=== PATIENT | female | born 1975 | race Caucasian/White ===

== ENCOUNTER 2022-12-05 16:47 | Outpatient (OUT) | payer OTHER, SELFPAY ==
[2022-12-05 17:10] LABS: Basophils Absolute Auto 0.1 10^3/uL (0.0-0.1); Basophils Percent Auto 0.8 % (0.2-2.0); Eosinophils Absolute Auto 0.1 10^3/uL (0.0-0.7); Eosinophils Percent Auto 1.4 % (0.9-7.0); Hematocrit 43.9 % (36.0-48.0); Hemoglobin 14.5 g/dL (12.0-16.0); Immature Granulocytes Abs Auto 0.03 10^3/uL (0.00-0.03); Immature Granulocytes Pct Auto 0.3 % (0.0-0.5); Lymphocytes Absolute Auto 1.9 10^3/uL (1.2-3.8); Lymphocytes Percent Auto 22.3 % (20.5-60.0); Mean Corpuscular Hemoglobin 30.5 pg (26.7-34.0); Mean Corpuscular Volume 92.4 fL (81.0-99.0); Mean Platelet Volume 9.3 fL (9.5-13.5); Monocytes Absolute Auto 0.5 10^3/uL (0.3-0.8); Monocytes Percent Auto 5.5 % (1.7-12.0); Neutrophils Percent Auto 69.7 % (43.0-75.0); Platelet Count 267 10^3/uL (150-450); Red Blood Count 4.75 10^6/uL (4.20-5.40); Red Cell Distribution Width 14.2 % (11.0-15.0); White Blood Count 8.7 10^3/uL (4.0-11.0)
[2022-12-05 17:16] LABS: Estimated Average Glucose 123 mg/dL; Glycohemoglobin A1C 5.9 % (4.5-6.2)
[2022-12-05 18:24] LABS: Alanine Aminotransferase 64 U/L (14-59); Albumin Globulin Ratio 0.9; Albumin Level 3.6 g/dL (3.4-5.0); Alkaline Phosphatase 105 U/L (46-116); Anion Gap 12.7; Aspartate Amino Transferase 36 U/L (15-37); Bilirubin Total 0.3 mg/dL (0.2-1.0); Calcium 8.4 mg/dL (8.5-10.1); Carbon Dioxide 27.5 mmol/L (21.0-32.0); Chloride 105 mmol/L (98-107); Chol HDL Ratio 4.2; Cholesterol 171 mg/dL (<=200); Estimated GFR (African America >60 (>=60); Estimated GFR (Non-African Ame >60 (>=60); Free T3 2.89 pg/mL (2.18-3.98); Globulin 4.2 g/dL; Glucose 97 mg/dL (74-106); HDL Cholesterol 41 mg/dL (40-60); Potassium 4.2 mmol/L (3.5-5.1); Sodium 141 mmol/L (136-145); Thyroid Stimulating Hormone 0.866 uIU/mL (0.358-3.740); Total Protein 7.8 g/dL (6.4-8.2); Triglycerides 145 mg/dL (<=150)
[2022-12-07 12:08] LABS: Insulin 20.6 uIU/mL (2.6-24.9)
== END 2022-12-05 16:48 | disposition home or self-care (01) ==
PROVIDERS: PCP Family Medicine; Visit Provider Family Medicine
DX: Z00.00 Encounter for general adult medical examination without abnormal findings (principal)
CPT/HCPCS: 36415; 80053; 80061; 83036; 83525; 83540; 84436; 84443; 84481; 85025

== ENCOUNTER 2023-12-08 15:21 | Outpatient (OUT) | payer OTHER, SELFPAY ==
[2023-12-08 16:03] LABS: Estimated Average Glucose 120 mg/dL; Glycohemoglobin A1C 5.8 % (4.5-6.2)
[2023-12-08 16:20] LABS: Basophils Absolute Auto 0.1 10^3/uL (0.0-0.1); Basophils Percent Auto 0.7 % (0.2-2.0); Eosinophils Absolute Auto 0.1 10^3/uL (0.0-0.7); Eosinophils Percent Auto 1.2 % (0.9-7.0); Hemoglobin 14.7 g/dL (12.0-16.0); Immature Granulocytes Abs Auto 0.01 10^3/uL (0.00-0.03); Immature Granulocytes Pct Auto 0.1 % (0.0-0.5); Lymphocytes Percent Auto 22.4 % (20.5-60.0); Mean Corpuscular HGB Conc 32.7 g/dL (29.9-35.2); Mean Corpuscular Hemoglobin 31.3 pg (26.7-34.0); Mean Corpuscular Volume 95.9 fL (81.0-99.0); Mean Platelet Volume 10.1 fL (9.5-13.5); Monocytes Absolute Auto 0.5 10^3/uL (0.3-0.8); Monocytes Percent Auto 5.7 % (1.7-12.0); Neutrophils Absolute Auto 6.2 10^3/uL (1.4-6.5); Neutrophils Percent Auto 69.9 % (43.0-75.0); Platelet Count 244 10^3/uL (150-450); Red Blood Count 4.69 10^6/uL (4.20-5.40); Red Cell Distribution Width 13.8 % (11.0-15.0); White Blood Count 8.8 10^3/uL (4.0-11.0)
[2023-12-08 16:45] LABS: Free T4 1.06 ng/dL (0.76-1.46)
[2023-12-08 17:27] LABS: Anion Gap 10.5; BUN Creatinine Ratio 15.7; Carbon Dioxide 27.6 mmol/L (21.0-32.0); Chloride 104 mmol/L (98-107); Estimated GFR (African America >60 (>=60); Estimated GFR (Non-African Ame >60 (>=60); Glucose 97 mg/dL (74-106); Potassium 4.1 mmol/L (3.5-5.1); Sodium 138 mmol/L (136-145)
[2023-12-08 17:28] LABS: Alanine Aminotransferase 41 U/L (14-59); Alkaline Phosphatase 106 U/L (46-116); Aspartate Amino Transferase 23 U/L (15-37); Bilirubin Total 0.4 mg/dL (0.2-1.0); Calcium 8.5 mg/dL (8.5-10.1); Total Protein 7.8 g/dL (6.4-8.2)
[2023-12-08 17:29] LABS: Albumin Globulin Ratio 0.9; Albumin Level 3.6 g/dL (3.4-5.0); Cholesterol 175 mg/dL (<=200); Globulin 4.2 g/dL; HDL Cholesterol 51 mg/dL (40-60); Triglycerides 83 mg/dL (<=150); VLDL CHOLESTEROL 16.6 mg/dL
[2023-12-08 17:30] LABS: Chol HDL Ratio 3.4; Thyroid Stimulating Hormone 1.118 uIU/mL (0.358-3.740)
[2023-12-08 17:33] LABS: LDL Cholesterol Calculated 107.4 mg/dL
== END 2023-12-08 15:22 | disposition home or self-care (01) ==
PROVIDERS: PCP Family Medicine; Visit Provider Family Medicine
DX: Z00.00 Encounter for general adult medical examination without abnormal findings (principal); R00.2 Palpitations
CPT/HCPCS: 36415; 80053; 80061; 83036; 84439; 84443; 85025; 93246

== ENCOUNTER 2024-01-01 13:06 | Emergency (ER) | payer OTHER, SELFPAY ==
[2024-01-01] VITALS (19 sets, daily range): BP systolic 128–159; BP diastolic 78–103; PULSE 60–78; TEMP 36.9; O2SAT 96–100; BMI 40.4
--- NOTE | 2024-01-01 13:28 | ECG_ITS ---
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
--- NOTE | 2024-01-01 13:29 | ED.GENADUL1 ---
HPI HPI - General Adult General Chief complaint: Arrhythmia/Palpitations Stated complaint: CHEST PAIN Time Seen by Provider: 01/01/24 13:07 Source: patient Mode of arrival: walk-in Limitations: no limitations History of Present Illness HPI narrative: Patient is a 48-year-old female with a history of GERD who presents to the emergency department for palpitations. Patient states she works midnights, she noticed last night that she had discomfort in her chest, she is adamant this was not chest pain but she felt as though her heart was beating harder than it should, she denies any strenuous activity. She states she does have a history of episodes of tachycardia and recently completed a Holter monitor. This was ordered by her primary care provider and she is due to follow-up with cardiology for an echo and stress test. She states that this morning after having the palpitations all night, her watch told her that she was in A-fib and she presents to the ER for evaluation. She is in normal sinus rhythm on arrival to the ER. She denies any other focal medical complaints at this time. Related Data Home Medications ?Medication ?Instructions ?Recorded ?Confirmed pantoprazole 40 mg granules 40 mg PO DAILY 01/01/24 01/01/24 delayed-release for susp in packet (Protonix) Allergies Allergy/AdvReac Type Severity Reaction Status Date / Time No Known Drug Allergies Allergy Verified 01/01/24 13:21 Opioid HPI Opioid Management Most Recent Opioid Data: No Data to Display Review of Systems ROS Constitutional Denies: fever or chills Ears, nose, mouth, and throat Denies: throat pain or nasal congestion Cardiovascular Reports: palpitations; Denies: chest pain Respiratory Denies: shortness of breath or cough Gastrointestinal Denies: nausea or vomiting Integumentary/Breast Denies: rash Hematologic/Lymphatic Denies: easy bruising or easy bleeding Exam Narrative Exam Narrative: Gen.: Awake, alert, in no distress Head: Normocephalic, atraumatic ENT: Moist mucous membranes Respiratory: No respiratory distress, lungs clear bilaterally Cardio: Regular rate and rhythm Extremities: Moves extremities equally Psych: Normal mood and affect Neuro: No focal neuro deficit Skin: Warm, dry, intact Constitutional Vital Signs, click to edit/add: Last Vital Signs Temp 98.4 F 01/01/24 13:14 Pulse 76 01/01/24 13:14 Resp 18 01/01/24 13:14 BP 159/99 H 01/01/24 13:14 Pulse Ox 100 01/01/24 13:14 O2 Del Method Room Air 01/01/24 13:14 Course Vital Signs Vital signs: Vital Signs Temperature 98.4 F 01/01/24 13:14 Pulse Rate 76 01/01/24 13:14 Respiratory Rate 18 01/01/24 13:14 Blood Pressure 159/99 H 01/01/24 13:14 Pulse Oximetry 100 01/01/24 13:14 Oxygen Delivery Method Room Air 01/01/24 13:14 Temperature 98.4 F 01/01/24 13:14 Pulse Rate 76 01/01/24 13:14 Respiratory Rate 18 01/01/24 13:14 Blood Pressure 159/99 H 01/01/24 13:14 Pulse Oximetry 100 01/01/24 13:14 Oxygen Delivery Method Room Air 01/01/24 13:14 Medical Decision Making MDM Narrative Medical decision making narrative: No chest pain, labs including D-dimer are within normal limits and chest x-ray is unremarkable. Patient in normal sinus rhythm with stable vital signs in the emergency department. She is discharged home to follow-up with PCP and cardiology as scheduled. Reevaluated by attending physician prior to discharge. Return to the ER if symptoms change or worsen SHARED APC VISIT, PHYSICIAN ATTESTATION: [id number] I performed a substantive part of the MDM during the patient?s E/M visit. I personally evaluated and examined the patient. I personally made or approved the documented management plan and acknowledge its risk of complications. Medical Records Medical records reviewed: Yes I reviewed the patient's medical records Lab Data Lab results reviewed: Yes I reviewed the patient's lab results Labs: Lab Results 01/01/24 Range/Units 14:00 WBC 8.7 (4.0-11.0) 10^3/uL RBC 4.87 (4.20-5.40) 10^6/uL Hgb 15.3 (12.0-16.0) g/dL Hct 45.9 (36.0-48.0) % MCV 94.3 (81.0-99.0) fL MCH 31.4 (26.7-34.0) pg MCHC 33.3 (29.9-35.2) g/dL RDW 13.6 (11.0-15.0) % Plt Count 239 (150-450) 10^3/uL MPV 9.4 L (9.5-13.5) fL Neut % (Auto) 75.5 H (43.0-75.0) % Lymph % (Auto) 17.2 L (20.5-60.0) % [place] % (Auto) 5.3 (1.7-12.0) % Eos % (Auto) 1.1 (0.9-7.0) % Baso % (Auto) 0.7 (0.2-2.0) % Neut # (Auto) 6.6 H (1.4-6.5) 10^3/uL Lymph # (Auto) 1.5 (1.2-3.8) 10^3/uL [place] # (Auto) 0.5 (0.3-0.8) 10^3/uL Eos # (Auto) 0.1 (0.0-0.7) 10^3/uL Baso # (Auto) 0.1 (0.0-0.1) 10^3/uL Abs Immat Gran (auto) 0.02 (0.00-0.03) 10^3/uL Imm/Tot Granulo (auto) 0.2 (0.0-0.5) % PT 10.6 (9.0-11.6) sec INR 1.00 D-Dimer 0.32 (<=0.59) mg/L FEU Sodium 140 (136-145) mmol/L Potassium 4.0 (3.5-5.1) mmol/L Chloride 104 (98-107) mmol/L Carbon Dioxide 26.1 (21.0-32.0) mmol/L Anion Gap 13.9 BUN 13.0 (7.0-18.0) mg/dL Creatinine 0.84 (0.55-1.02) mg/dL Est GFR ( Amer) >60 (>=60) Est GFR (Non-Af Amer) >60 (>=60) BUN/Creatinine Ratio 15.5 Glucose 97 (74-106) mg/dL Lactate 1.5 (0.4-2.0) mmol/L Calcium 8.7 (8.5-10.1) mg/dL Total Bilirubin 0.5 (0.2-1.0) mg/dL AST 21 (15-37) U/L ALT 34 (14-59) U/L Alkaline Phosphatase 104 (46-116) U/L Troponin I High Sens <4.0 L (4.0-51.3) pg/mL NT-Pro-B Natriuret Pep 63.0 (<=450.0) pg/mL Total Protein 7.3 (6.4-8.2) g/dL Albumin 3.4 (3.4-5.0) g/dL Globulin 3.9 g/dL Albumin/Globulin Ratio 0.9 TSH 1.129 (0.358-3.740) uIU/mL Imaging Data Chest x-ray: Attestation: I have reviewed the pertinent imaging results. ECG Data Attestation: I personally reviewed and interpreted this ECG as follows: (Normal sinus rhythm at a rate of 68, no acute ST elevation or ectopy. EKG reviewed by attending physician) Discharge Plan Discharge Stand Alone Forms: Portal Instructions Chief Complaint: Arrhythmia/Palpitations Clinical Impression: Palpitations Patient Disposition: Home, Self-Care Time of Disposition Decision: 15:14 Condition: Good Prescriptions / Home Meds: No Action pantoprazole [Protonix] [address] for susp in packet 40 mg PO DAILY Print Language: Norwegian Instructions: Heart Palpitations (ED) Referrals: Davion Tavera MD [Primary Care Provider] - 1 week
[2024-01-01 14:05] LABS: Basophils Absolute Auto 0.1 10^3/uL (0.0-0.1); Basophils Percent Auto 0.7 % (0.2-2.0); Eosinophils Absolute Auto 0.1 10^3/uL (0.0-0.7); Eosinophils Percent Auto 1.1 % (0.9-7.0); Hematocrit 45.9 % (36.0-48.0); Hemoglobin 15.3 g/dL (12.0-16.0); Immature Granulocytes Abs Auto 0.02 10^3/uL (0.00-0.03); Immature Granulocytes Pct Auto 0.2 % (0.0-0.5); Lymphocytes Absolute Auto 1.5 10^3/uL (1.2-3.8); Lymphocytes Percent Auto 17.2 % (20.5-60.0); Mean Corpuscular HGB Conc 33.3 g/dL (29.9-35.2); Mean Corpuscular Hemoglobin 31.4 pg (26.7-34.0); Mean Corpuscular Volume 94.3 fL (81.0-99.0); Mean Platelet Volume 9.4 fL (9.5-13.5); Monocytes Absolute Auto 0.5 10^3/uL (0.3-0.8); Monocytes Percent Auto 5.3 % (1.7-12.0); Neutrophils Absolute Auto 6.6 10^3/uL (1.4-6.5); Neutrophils Percent Auto 75.5 % (43.0-75.0); Platelet Count 239 10^3/uL (150-450); Red Blood Count 4.87 10^6/uL (4.20-5.40); Red Cell Distribution Width 13.6 % (11.0-15.0); White Blood Count 8.7 10^3/uL (4.0-11.0)
[2024-01-01 14:20] LABS: D Dimer 0.32 mg/L FEU (<=0.59); Prothrombin Time 10.6 sec (9.0-11.6)
[2024-01-01 14:23] LABS: Lactate/Lactic Acid 1.5 mmol/L (0.4-2.0)
--- NOTE | 2024-01-01 14:23 | XR_ITS ---
The [address] [address] Patient Name: ADRIA LE MRN: [id number] date: 1975 Sex: F Assigned Patient Location: ER Current Patient Location: ED.MAIN Accession/Order Number: [id number] Exam Date: 01/01/2024 14:35 Report Date: 01/01/2024 15:45 At the request of: YAIR LARKIN Procedure: XR chest 1V EXAMINATION: XR chest 1V HISTORY: Palpitations COMPARISON: No relevant comparison available. TECHNIQUE: ap port FINDINGS: LUNGS: No significant pulmonary parenchymal abnormalities. VASCULATURE: No increased pulmonary vasculature. PLEURA: No pneumothorax, effusion, or pleural thickening. CARDIAC: No cardiomegaly or cardiac silhouette abnormality. MEDIASTINUM: No visible mass or adenopathy. BONES: No fracture or visible bone lesion. OTHER: Negative. XR/XR chest 1V IMPRESSION: No acute cardiopulmonary disease Electronically authenticated by: TODD MCCURDY Date: 01/01/2024 15:45
[2024-01-01 14:30] LABS: Alanine Aminotransferase 34 U/L (14-59); Albumin Globulin Ratio 0.9; Albumin Level 3.4 g/dL (3.4-5.0); Alkaline Phosphatase 104 U/L (46-116); Anion Gap 13.9; Aspartate Amino Transferase 21 U/L (15-37); BUN Creatinine Ratio 15.5; Bilirubin Total 0.5 mg/dL (0.2-1.0); Calcium 8.7 mg/dL (8.5-10.1); Carbon Dioxide 26.1 mmol/L (21.0-32.0); Chloride 104 mmol/L (98-107); Estimated GFR (African America >60 (>=60); Estimated GFR (Non-African Ame >60 (>=60); Globulin 3.9 g/dL; Glucose 97 mg/dL (74-106); Sodium 140 mmol/L (136-145); Thyroid Stimulating Hormone 1.129 uIU/mL (0.358-3.740); Total Protein 7.3 g/dL (6.4-8.2); Troponin I High Sensitivity <4.0 pg/mL (4.0-51.3)
== END 2024-01-01 15:55 | disposition home or self-care (01) ==
PROVIDERS: Physician Assistant; Emergency Provider Emergency Medicine; PCP Family Medicine
DX: R00.2 Palpitations (principal); K21.9 Gastro-esophageal reflux disease without esophagitis
CPT/HCPCS: 36415; 71045; 80053; 83605; 83880; 84443; 84484; 85025; 85378; 85610; 93005; 99285

== ENCOUNTER 2024-01-31 08:58 | Outpatient (OUT) | payer OTHER, SELFPAY ==
--- NOTE | 2024-01-31 08:20 | NM_ITS ---
Patient Name: ADRIA LE MR#: [id number] : 1975 Exam Date: 01/31/2024 Ordering Doctor: DR Davion Tavera . RADIOLOGY REPORT PROCEDURE: NM PACHECO PERF SPECT REST STR COMPARISON: None. INDICATIONS: ABNORMAL HOLTER MONITOR TECHNIQUE: Exam Description: Stress/Rest one day protocol gated SPECT Rest Imagin.8 mCi Tc-99m Cardiolite IV on 01/31/2024 Stress Imaging 29.8 mCi Tc-99m Cardiolite IV on 01/31/2024 Exercise Protocol: Reilly Heart Rate (bpm): Rest: 55 Max: 184 PMHR: 106 Blood Pressure: Rest: 118/72 Max: 168/86 Exercise Time: Minutes: 7 Seconds: 00 Stage Reached: Stage: 3 Mets 10.0 Symptoms: Rest and peak stress ECG findings were pending and the exercise portion of the study was pending per attending physician Dr. Choudhury . For more details please see separate cardiac stress test report. FINDINGS: QUALITY OF STUDY: Good. PERFUSION DEFECT: None. LOCATION: N/A SIZE: N/A. SEVERITY: N/A. TYPE: N/A. WALL MOTION: Normal. LV SIZE: Normal. 63 mL. TID / TCD: None; 0.9 LVEF: Normal. Calculated EF 73%. SUMMARY: Myocardial perfusion imaging study is NORMAL. CONCLUSION: 1. No reversible ischemia 2. Pending exercise test result Dictated by: Elvis Washington MD on 01/31/2024 at 15:46 Approved by: Elvis Washington MD on 01/31/2024 at 15:47
--- NOTE | 2024-01-31 09:00 | CA_ITS ---
Patient Name: ADRIA LE MR#: [id number] : 1975 Exam Date: 01/31/2024 Ordering Doctor: DR Davion Tavera . ECHOCARDIOGRAM REPORT PROCEDURE: CA ECHO DOPPLER COMPLETE INDICATIONS: Abnormal Holter monitor finding COMPARISON: None. DESCRIPTION: COMPLETE ECHOCARDIOGRAM Real-time transthoracic echocardiography with 2D, M-mode, spectral and color flow Doppler performed. QUALITY: Technical quality was good. LEFT VENTRICLE: Normal chamber size. Normal left ventricular wall thickness. LV EF: Global left ventricular systolic function is normal; visually estimated ejection fraction is 55 to 60%. No significant wall motion abnormalities. DIASTOLIC: Normal diastolic function. ATRIAL SEPTUM: Visually appears intact. LEFT ATRIUM: Normal chamber size. RIGHT ATRIUM: Normal chamber size. RIGHT VENTRICLE: Normal chamber size. Normal right ventricular systolic function. TRICUSPID VALVE: Normal mobility and thickness. Trivial regurgitation. No evidence of pulmonary hypertension. RVSP 33 mmHg MITRAL VALVE: Normal mobility and thickness. No evidence of mitral valve stenosis. There is no mitral annular calcification. Mild mitral regurgitation. AORTIC VALVE: Normal trileaflet appearance. No visible sclerosis. Normal leaflet mobility. No evidence of aortic valve stenosis. No aortic regurgitation. AORTIC ROOT: Normal diameter and appearance. PULMONIC VALVE: Normal thickness and mobility. No stenosis. No regurgitation. PERICARDIUM: No evidence of pericardial effusion. IVC: Collapses with inspirations. IVC is normal in size. CONCLUSION: 1. Global left ventricular systolic function is normal; visually estimated ejection fraction is 55 to 60% 2. Normal right ventricular size and systolic function 3. The left atrium is normal in size 4. Normal diastolic function 5. Mild mitral regurgitation Adult Echocardiography Procedure Report Left Ventricle LVEDD (3.7 - 5.6 cm): 4.38 cm LVESD (2.2 - 4.0 cm): 2.79 cm LVIVS thickness (0.6 - 1.2 cm): 0.75 cm LVPW thickness (0.5 - 1.0 cm): 0.94 cm e': 0.17 m/s E - e': 5.25 LVOT Max Gradient: 5.60 mm[Hg] LVOT Area (cm2): 1.18 m/s Peak Velocity (LVOT): 1.18 m/s Mean Velocity (LVOT): 0.76 m/s LVOT Diameter 1.96 cm Left Atrium LA Volume Index (2D A2C): 20.94 ml/m2 Left Atrium Systolic Dimension: 3.46 cm Mitral Valve MV E to A Ratio: 1.32 Mitral Valve A-Wave Peak Velocity: 0.69 m/s Mitral Valve E-Wave Peak Velocity: 0.91 m/s Right Ventricle Aorta AO Root Diam: 2.53 cm Aortic Valve AoV Area (Peak Ricki): 2.82 cm2, 2.82 cm2 AoV Area (VTI): 2.47 cm2, 2.47 cm2 Peak Velocity(Antegrade Flow): 1.26 m/s Peak Gradient(Antegrade Flow): 6.37 mm[Hg] Mean Velocity(Antegrade Flow): 0.84 m/s Mean Gradient(Antegrade Flow): 3.24 mm[Hg] Velocity Time Integral: 29.88 cm Tricuspid Valve Peak Velocity (Regurgitant Flow): 2.70 m/s, 2.74 m/s Pulmonic Valve Mean Gradient: 4.79 mm[Hg] Mean Velocity: 1.01 m/s Peak Velocity: 1.53 m/s, 1.46 m/s Peak Gradient: 9.35 mm[Hg], 8.52 mm[Hg] Right Atrium Right Atrium Systolic Pressure: 37.09 ml, 37.09 ml Dictated by: Kem Bolden M.D. on 02/01/2024 at 15:16 Approved by: Kem Bolden M.D. on 02/01/2024 at 15:19
--- NOTE | 2024-01-31 10:59 | PC.NURSE ---
Nursing Note Cardiac Stress Test Reviewed: Medication, allergies and patient history reviewed. Stress Test: [ x] Patient tolerated stress test well. [ ] Patient unable to tolerate walking on treadmill. Switched to Lexiscan stress test. [x ] No chest pain noted per patient [ ] Chest pain that resolved prior to leaving stress lab. [ ] No dyspnea noted. [x ] Dyspnea that resolved prior to leaving stress lab. [ x] Patient left stress lab asymptomatic and hemodynamically stable. [ ] Patient taken to the Emergency Room due to non-resolving symptoms following stress test. [ x] Patient achieved target heart rate. [ ] Patient unable to achieve target heart rate. [ ] Aminophylline administered as reversal agent to Lexiscan (Regadenoson). [ ] Nitro administered. Nursing Comments:Pt had cardiolite stress test done and tolerated well. No chest pain noted. Pt did have some dyspnea which she states is normal with exercise for her. Pt states she has had runs of VT in the past and wore a holter and did not even know she was having these events while they were happening. Pt left stress lab to go eat in cafeteria with no issues noted.
--- NOTE | 2024-01-31 12:32 | P.STRESS_ITS ---
Stress Test Stress Test Allergies Allergy/AdvReac Type Severity Reaction Status Date / Time No Known Drug Allergies Allergy Verified 01/01/24 13:21 Requesting physician: Davion Tavera Procedure: Exercise Cardiolite stress test General Information: Reason for Stress Test: Tachycardia, abnormal Holter monitor findings Cardiac History and Risk Factors: None Resting 12 - Lead Electrocardiogram: Rate & rhythm: Sinus bradycardia with sinus arrhrythmia at a rate of 54. [place]: Normal T-waves: Flattened in aVL ST-segments: Normal Stress Test: Protocol: Reilly protocol was followed, with injection of Cardiolite once target heart rate was achieved. Exercise capacity: Good exercise capacity. Total exercise time of 7 minutes reached Reilly stage 3 at 3.4MPH, 14% grade, & 10 METs. Blood pressure: Initial: 118/72, Maximum: 168/86 Rate & rhythm: Patient remained in sinus rhythm during the exercise and recovery portions of the study.? The maximum heart rate was 184, which was 106% of the maximum predicted heart rate. PVS were noted. ST-segments & T-waves: No significant changes when compared to the baseline EKG. Patient response/symptoms: No reproducible symptoms to chief complaint. She voiced mild dyspnea. Interpretation: Normal exercise stress test without electrocardiographical evidence of ischemia. Asymptomatic of chief complaint. Cardiolite imaging interpretation will be reported separately. Clinical correlation required.?
== END 2024-01-31 08:59 | disposition home or self-care (01) ==
LOC: NM 08:58
PROVIDERS: PCP Family Medicine; Visit Provider Family Medicine
DX: R94.31 Abnormal electrocardiogram [ECG] [EKG] (principal)
CPT/HCPCS: 78452; 93017; 93306; A9500

== ENCOUNTER 2024-02-05 15:11 | Outpatient (OUT) | payer OTHER, SELFPAY | END 2024-02-05 15:12 | disposition home or self-care (01) | LOC: CARD 15:11 | PROVIDERS: PCP Family Medicine; Visit Provider Family Medicine | DX: R00.2 Palpitations (principal) | CPT/HCPCS: 93270 ==

== ENCOUNTER 2024-04-24 14:48 | Outpatient (OUT) | payer OTHER, SELFPAY ==
--- NOTE | 2024-04-24 14:52 | US_ITS ---
The [address] [address] Patient Name: ADRIA LE MRN: [id number] date: 1975 Sex: F Assigned Patient Location: US Current Patient Location: Accession/Order Number: [id number] Exam Date: 04/24/2024 14:53 Report Date: 04/25/2024 07:36 At the request of: JOEY ZAPIEN Procedure: US soft tissue head and neck EXAM: US soft tissue head and neck HISTORY: Throat Pain COMPARISON: None. TECHNIQUE: Grayscale and color ultrasound FINDINGS: Multiple normal size bilateral cervical lymph nodes some of which demonstrate atypical morphology with thickened cortices and loss of hyper echogenic hilum The largest in the right neck measures 2.0 x 1.3 x 0.6 cm. The largest in the left neck measures 2.1 x 1.0 x 0.7 cm. US/US soft tissue head and neck IMPRESSION: Bilateral cervical lymphadenopathy, normal in size but atypical morphology possibly reactive Electronically authenticated by: TODD MCCURDY Date: 04/25/2024 07:36
== END 2024-04-24 14:49 | disposition home or self-care (01) ==
LOC: US 14:48
PROVIDERS: PCP Family Medicine; Visit Provider Family Medicine
DX: R07.0 Pain in throat (principal); R59.1 Generalized enlarged lymph nodes
CPT/HCPCS: 76536

== ENCOUNTER 2024-05-09 13:24 | Outpatient (OUT) | payer OTHER, SELFPAY ==
--- NOTE | 2024-05-09 13:28 | CT_ITS ---
The [address] [address] Patient Name: ADRIA LE MRN: [id number] date: 1975 Sex: F Assigned Patient Location: CT Current Patient Location: Accession/Order Number: [id number] Exam Date: 05/09/2024 13:45 Report Date: 05/10/2024 11:17 At the request of: JOEY ZAPIEN Procedure: CT soft tissue neck w con CT NECK WITH CONTRAST. 05/09/2024 1:45 PM EST Clinical History:Throat Pain Comparison: Neck ultrasound 04/24/2024 . Contrast-enhanced helically acquired data per standard protocol. INTRACRANIAL COMPARTMENT: Included aspects are grossly unremarkable at helical acquisition ORBITS: Included aspects are grossly unremarkable PARANASAL SINUSES: Included aspects are clear MASTOIDS: Clear MUCOSAL SPACES: No prominence of posterior nasopharyngeal tissue. The lateral oropharyngeal tonsillar pillars are mildly prominent and are mildly hyperdense. They measure 2.5-3.0 cm and are mildly convex at their margins. No tonsillar or peritonsillar collection. Calcification of the right is likely chronic. The lingual tonsils are lobular mildly prominent. Some effacement of the valleculae. PARAPHARYNGEAL FAT: Unremarkable PREEPIGLOTTIC FAT: Preserved PARALARYNGEAL FAT: Symmetric SUBMENTAL REGION: No adenopathy SUBMANDIBULAR REGIONS: Slightly elongated lobular but otherwise thin nodes bilaterally. RIGHT CERVICAL LYMPH NODES: 13 mm JGD node. At the hyoid level there is a 9 mm IJ node. No infrahyoid IJ adenopathy. Several nonenlarged PC nodes. No TC adenopathy LEFT CERVICAL LYMPH NODES: 15 mm JGD node with preserved fatty hilum. No infrahyoid IJ adenopathy. Several nonenlarged PC and TC nodes. THYROID: Enlarged, particularly the left lobe. Heterogeneity both lobes, left greater than right. TRACHEOESOPHAGEAL GROOVES: Both thyroid lobes extend into these regions, left more so than right. PAROTID GLANDS: No acute finding SUBMANDIBULAR GLANDS: No acute finding SUBLINGUAL SPACES: No acute finding OTHER SOFT TISSUES: No retropharyngeal fluid collection or soft tissue mass. VASCULATURE: IJVs are patent with the left moderately dominant over the right. Carotid bifurcations are widely patent. Vertebral arteries are patent with the right dominant over the left OSSEOUS STRUCTURES: No acute finding. LUNG APICES: Clear. CT/CT soft tissue neck w con IMPRESSION: 1. Symmetric mildly prominent lateral oropharyngeal tonsillar pillars greater than lingual tonsils. Given the symmetry this is likely lymphoid. Clinical correlation regarding etiology is needed. 2. Nonnecrotic cervical chain nodes bilaterally. 3. Thyroid as described. Taken together this is probably goitrogenic. Taken individually etiology of any one area of heterogeneity is unknown. If desired, follow-up thyroid ultrasound to be compared to 08/23/[address] scans at this facility use dose modulation, iterative reconstruction, and/or weight based dosing when appropriate to reduce radiation dose to as low as reasonably achievable. Electronically authenticated by: TAN MCCORMACK Date: 05/10/2024 11:17
--- OUTSIDE RECORDS SUMMARY | 2024-05-09 13:29 | XMS_ITS | CCD ---
Author Organization [facility] Care Team Providers Care Social Science Manager Name Role Phone DR XIMENA LEONE Attending Unavailable HOY, DR COOK Primary Care Unavailable KARASIK, DR BUENO Admitting Unavailable KARASIK, DR BUENO Consulting Unavailable EDUARDO, PETERSON Consulting Unavailable DORKOSKIEDEEPTHI Consulting Unavailable KARASIK, DR BUENO Attending Unavailable HOY, DR COOK Referring Unavailable HOY, DR COOK Primary Care Unavailable KARASIK, DR BUENO Admitting Unavailable KARASIK, DR BUENO Attending Unavailable HOY, DR COOK Primary Care Unavailable KARASIK, DR BUENO Consulting Unavailable KARASIK, DR BUENO Admitting Unavailable HOY, DR COOK Admitting Unavailable HOY, DR COOK Attending Unavailable HOY, DR COOK Consulting Unavailable GUILLERMOY, DR COOK Primary Care Unavailable ZIEBER, DR WERO Freed Consulting Unavailable CURRY, DR COOK Attending Unavailable HOY, DR COOK Consulting Unavailable HOY, DR COOK Primary Care Unavailable HOY, DR COOK Admitting Unavailable ZIEBER, DR WERO Freed Consulting Unavailable CURRY, DR COOK Attending Unavailable GUILLERMOY, DR COOK Consulting Unavailable CURRY, DR COOK Admitting Unavailable GUILLERMOY, DR COOK Primary Care Unavailable NEGLEY, DR BROOKS Consulting Unavailable CANDICE, DR CARLINE Alberts Consulting Unavailmaria fernanda HARVEY, DR CARLINE Alberts Admitting Unavailmaria fernanda TAVERA, DR COOK Primary Care Unavailable CANDICE, DR CARLINE Alberts Attending UnavailJOEY Gates Referring Unavailable JOEY TAVERA Primary Care Unavailable Joey Tavera MD Primary Care Provider [phone] THERESA MORENO Attending Unavailable NEFTALY CASEY Attending Unavailable Medications Current Medications Medication Drug Class(es) Dates Sig (Normalized) Sig (Original) apixaban 5 mg oral tablet (3 sources) Factor Xa Inhibitor take 1 tablet by mouth in the morning apixaban (Eliquis) 5 MG tablet Take 5 mg by mouth in the morning and 5 mg before bedtime. Active famotidine 20 mg oral tablet (2 sources) Histamine-2 Receptor Antagonist Start: 04-30-2024 End: 07-29-2024 take 1 tablet by mouth at bedtime famotidine (Pepcid) 20 MG tablet Indications: LPRD (laryngopharyngeal reflux disease) Take 1 tablet (20 mg) by mouth at bedtime 90 tablet 04/30/2024 07/29/2024 Active pantoprazole 40 mg delayed release oral tablet (3 sources) Proton Pump Inhibitor take 1 tablet by mouth before mealtime pantoprazole (Protonix) 40 MG EC tablet Take 40 mg by mouth in the morning. Take before meals. Active Problems Active Problems Problem Classification Problem Date Documented Date Episodic/Chronic Cardiac dysrhythmias (5 sources) Atrial fibrillation; Translations: [Unspecified atrial fibrillation] Onset: 04-25-2024 04-25-2024 Chronic Diverticulosis and diverticulitis (3 sources) Diverticular disease; Translations: [Diverticulosis of intestine, part unspecified, without perforation or abscess without bleeding] Onset: 04-25-2024 04-25-2024 Chronic Esophageal disorders (6 sources) Gastro-esophageal reflux disease without esophagitis; Translations: [Gastroesophageal reflux disease] Onset: 04-08-2021 04-25-2024 Chronic Lymphadenitis (2 sources) Cervical lymphadenopathy; Translations: [Localized enlarged lymph nodes] 04-30-2024 Episodic Other female genital disorders (5 sources) Abnormal uterine and vaginal bleeding, unspecified; Translations: [ABNORMAL UTERINE VAGINAL BLEED UNS] Onset: 03-15-2021 Chronic Other nutritional; endocrine; and metabolic disorders (1 source) Morbid (severe) obesity due to excess calories; Translations: [MORBID SEVERE OBES D/T EXCESS JOHNATHAN] Onset: 04-08-2021 Chronic Other nutritional; endocrine; and metabolic disorders (1 source) Body mass index (BMI) 45.0-49.9, adult; Translations: [BODY MASS INDEX BMI 45.0-49.9 ADULT] Onset: 04-08-2021 Chronic Other screening for suspected conditions (not mental disorders or infectious disease) (1 source) Encounter for screening mammogram for malignant neoplasm of breast; Translations: [Encounter for screening mammogram for malignant neoplasm of breast] Onset: 12-25-2023 Episodic Other skin disorders (3 sources) H/O: eczema; Translations: [Personal history of diseases of the skin and subcutaneous tissue] Onset: 04-25-2024 04-25-2024 Episodic Other upper respiratory disease (2 sources) Pain in throat; Translations: [Pain in throat] 04-30-2024 Episodic Regional enteritis and ulcerative colitis (6 sources) Ulcerative (chronic) proctitis without complications; Translations: [Ulcerative (chronic) proctitis] Onset: 04-25-2024 04-25-2024 Chronic Spondylosis; intervertebral disc disorders; other back problems (1 source) Spondylosis without myelopathy or radiculopathy, thoracolumbar region; Translations: [SPONDYLS W/O MYELO-/RADICULOP TL] Onset: 05-26-2021 Chronic Thyroid disorders (6 sources) Nontoxic single thyroid nodule; Translations: [Non-toxic multinodular goiter] Onset: 09-20-2021 Chronic Unclassified (1 source) CONTACT W/AND (SUSP) EXPOS COVID-19; Translations: [CONTACT W/AND (SUSP) EXPOS COVID-19] Onset: 03-12-2021 Past or Other Problems Problem Classification Problem Date Documented Date Episodic/Chronic Abdominal pain (6 sources) Right upper quadrant pain; Translations: [Pelvic and perineal pain] Onset: 03-12-2021 Episodic Benign neoplasm of uterus (1 source) Leiomyoma of uterus, unspecified; Translations: [LEIOMYOMA OF UTERUS UNSPECIFIED] Onset: 04-08-2021 Episodic Other aftercare (1 source) Other assisted (current) drug therapy; Translations: [OTH GRAIN WEIGHER CURRENT DRUG THERAPY] Onset: 04-08-2021 Episodic Other female genital disorders (1 source) Other noninflammatory disorders of ovary, fallopian tube and broad ligament; Translations: [OTH NONINFL D/O OVARY TUBE AND BRD LIG] Onset: 04-08-2021 Episodic Other female genital disorders (1 source) Hypertrophy of uterus; Translations: [HYPERTROPHY OF UTERUS] Onset: 03-15-2021 Episodic Results Test Name Value Interpretation Reference Range Facility Office Visiton 04-30-2024 Follow-up visit [id number] Vernon Beltre 1975 F Date Provider Department Center 04/30/2024 NEFTALY ALFARO [facility] Family History Problem Relation Age of Onset Cancer Mother Cancer Father Family Status - Relation Status Age at Mother Father Level of Service:01680 MO OFFICE/OUTPATIENT NEW MODERATE MDM 45 MINUTES Normal [facility] 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 Computer aided detection was utilized. FINDINGS: The breasts are heterogeneously dense, which may obscure small masses. There are no suspicious masses, calcifications, or areas of architectural distortion. IMPRESSION: No mammographic evidence of malignancy. BI-RADS: BI-RADS 1 - Negative Recommendation: Routine screening mammogram in 1 year. Finalized by Todd Cueva MD on 12/26/2023 12:27 PM 1 c MAMM 1 YR [facility] US THYROID FN ASP BXon 09-23 US THYROID FN ASP BX Begin Addendum #1 COLLECTED DATE/TIME: 09/20/2021, 09:07 EDT Final Diagnosis Report for [facility] [place] (A/B) RIGHT THYROID ANTERIOR/INFERIOR NODULES; FINE NEEDLE ASPIRATION: -SPARSELY CELLULAR FOLLICULAR CELLS, INSUFFICIENT FOR DEFINITE DIAGNOSIS, SEE NOTE. NOTE: A repeat aspiration should be considered if clinically indicated. (C/D) LEFT THYROID INFERIOR NODULE; FINE NEEDLE ASPIRATION: -SPARSELY CELLULAR FOLLICULAR CELLS, INSUFFICIENT FOR DEFINITE DIAGNOSIS, SEE NOTE. NOTE: A repeat aspiration should be considered if clinically indicated. 09/22/2021 Verified with Diana that report was present in the office. Original Report EXAMINATION: US THYROID FN ASP BX HISTORY: Thyroid nodule COMPARISON: Ultrasound thyroid 08/23/2021 TECHNIQUE: After obtaining informed consent, ultrasound-guided fine needle aspiration was performed in the usual sterile manner. FINDINGS: IMAGING: Ultrasound. BIOPSY NEEDLE: 25-gauge; 3 separate passes on right and left LOCATION: Right lobe superior-anterior nodule. Left lobe inferior nodule. SPECIMEN TYPE: Cellular tissue. LOCAL ANESTHETIC: Buffered Xylocaine. COMPLICATIONS: None. LABORATORY: Prepared slide smears and washings for cell block evaluation. OTHER: Negative. PATHOLOGY: Pending. An addendum will be added when results are available. IMPRESSION: 1. Uneventful ultrasound guided fine needle aspiration (FNA). 2. Pathology results are pending. Normal [facility] US SINGLE QUAD RT UPPERon US SINGLE QUAD RT UPPER EXAMINATION: US SINGLE QUAD RT UPPER HISTORY: Right upper quadrant pain since cholecystectomy last year COMPARISON: No relevant comparison available. TECHNIQUE: Transabdominal evaluation of the right upper quadrant. FINDINGS: LIVER: Normal size and echotexture. Color Doppler demonstrates patent hepatic veins. PORTAL VEIN: Duplex Doppler demonstrates normal hepatopetal flow pattern with flow velocity averaging 28 cm/s. GALLBLADDER: Cholecystectomy. Negative sonographic Paiz's sign. No free fluid. BILIARY: No abnormal dilation or stones. Common bile duct diameter is within normal limits. PANCREASE: No visible mass, abnormal atrophy, or duct dilation. KIDNEY: No hydronephrosis. No visible mass or stones. Size: 9.9 x 4.4 x 6.2 cm. IMPRESSION: 1. Normal postcholecystectomy ultrasound of the right upper quadrant. No suspicious findings to account for patient's symptoms. Electronically authenticated by: WERO HEAD Date: 2021-07-08 10:06 Normal [facility] XR TSPINE 3 VIEWSon 05-21-20 21 XR TSPINE 3 VIEWS EXAMINATION: XR LSPI NE MIN 4 VIEWS HISTORY: Right upper quadrant pain r COMPARISON: No relevant comparison available. FINDINGS: BONES: 4 mm anterolisthesis of L5 in relation S1. Normal alignment of the lumbar spine with no acute fracture. Mild diffuse degenerative spondylosis throughout the thoracic and lumbar spine DISC SPACES: Normal. No significant disc height narrowing, subluxation, or endplate abnormality. PARASPINOUS: Negative. No paraspinous abnormality is seen. OTHER: Negative. IMPRESSION: Mild diffuse thoracic lumbar spondylosis 4 mm anterolisthesis L4 on L5 Electronically authenticated by: TODD MCCURDY Date: 2021-05-21 06:56 Normal [facility] BUNon 03-16-2021 Urea nitrogen [Mass/Vol] 11.0 mg/dL Normal 7.0-17.0 [facility] Comment on above: Performed By: #### C REANNA, BUN #### [facility] [address] [place] [address] Dr. Wei Mccoy CBC AUTO DIFFon 03-16-2021 BASO # 0.0 103/ul Normal 0.0-0.1 [facility] Comment on above: Performed By: #### C BC #### [facility] [address] [place] [address] Dr. Wei Mccoy Basophils/100 WBC (Bld) 0.3 % Normal 0.2-2.0 [facility] Comment on above: Performed By: #### C BC #### [facility] [address] [place] [address] Dr. Wei Mccoy EO # 0.0 103/ul Normal 0.0-0.7 [facility] Comment on above: Performed By: #### C BC #### [facility] [address] [place] [address] Dr. Wei Mccoy Eosinophils/100 WBC (Bld) 0.1 % Critically low 0.9-7.0 [facility] Comment on above: Performed By: #### C BC #### [facility] [address] [place] [address] Dr. Wei Mccoy Erythrocyte distribution width (RBC) [Ratio] 20.3 % Critically high 11.0-15.0 [facility] Comment on above: Performed By: #### C BC #### [facility] [address] [place] [address] Dr. Wei Mccoy Hematocrit (Bld) [Volume fraction] 30.9 % Critically low 36.0-48.0 [facility] Comment on above: Performed By: #### C BC #### [facility] [address] [place] [address] Dr. Wei Mccoy Hemoglobin (Bld) [Mass/Vol] 9.5 g/dL Critically low 12.0-16.0 [facility] Comment on above: Performed By: #### C BC #### [facility] [address] [place] [address] Dr. Wei Mccoy IG # 0.06 10e3/ul Critically high 0.00-0.03 [facility] Comment on above: Performed By: #### C BC #### [facility] [address] [place] [address] Dr. Wei Mccoy IG % 0.4 % Normal 0.0-0.5 [facility] Comment on above: Performed By: #### C BC #### [facility] [address] [address] [address] Wei Mccoy LYMPH # 2.8 103/ul Normal 1.2-3.8 [facility] Comment on above: Performed By: #### C BC #### [facility] [address] [place] [address] Dr. Wei Mccoy Lymphocytes/100 WBC (Bld) 17.5 % Critically low 20.5-60.0 [facility] Comment on above: Performed By: #### C BC #### [facility] [address] [place] [address] Dr. Wei Mccoy MANUAL DIFF REQ NO Normal [facility] Comment on above: Performed By: #### C BC #### [facility] [address] [place] [address] Dr. Wei Mccoy MCH (RBC) [Entitic mass] 24.5 pg Critically low 26.7-34.0 [facility] Comment on above: Performed By: #### C BC #### [facility] [address] [place] [address] Dr. Wei Mccoy MCHC (RBC) [Mass/Vol] 30.7 g/dL Normal 29.9-35.2 [facility] Comment on above: Performed By: #### C BC #### [facility] [address] [place] [address] Dr. Wei Mccoy MCV (RBC) [Entitic vol] 79.6 fL Critically low 81.0-99.0 [facility] Comment on above: Performed By: #### C BC #### [facility] [address] [place] [address] Dr. Wei Mccoy MONO # 0.9 103/ul Critically high 0.3-0.8 [facility] Comment on above: Performed By: #### C BC #### [facility] [address] [place] [address] Dr. Wei Mccoy Monocytes/100 WBC (Bld) 5.7 % Normal 1.7-12.0 [facility] Comment on above: Performed By: #### C BC #### [facility] [address] [place] [address] Dr. Wei Mccoy NEUT # 12.0 103/ul Critically high 1.4-6.[address] [facility] Comment on above: Performed By: #### C BC #### [facility] [address] [place] [address] Dr. Wei Mccoy Neutrophils/100 WBC (Bld) 76.0 % Critically high 43.0-75.0 [facility] Comment on above: Performed By: #### C BC #### [facility] [address] [place] [address] Dr. Wei Mccoy Platelet mean volume (Bld) [Entitic vol] 9.5 fL Normal 9.5-13.5 [facility] Comment on above: Performed By: #### C BC #### [facility] [address] [place] [address] Dr. Wei Mccoy PLT 289 103/ul Normal 150-450 [facility] Comment on above: Performed By: #### C BC #### [facility] [address] [place] [address] Dr. Wei Mccoy RBC 3.88 106/ul Critically low 4.20-5.40 [facility] Comment on above: Performed By: #### C BC #### [facility] [address] [place] [address] Dr. Wei Mccoy WBC 15.8 103/ul Critically high 4.0-11.0 [facility] Comment on above: Performed By: #### C BC #### [facility] [address] [place] [address] Dr. Wei Mccoy CREATININEon 03-16-2021 Creatinine [Mass/Vol] 0.84 mg/dL Normal 0.52-1.04 [facility] Comment on above: Performed By: #### C REANNA, BUN #### [facility] [address] [address] [address] Wei Mccoy EGFR-AF PORTUGUESE >60 Normal >=[address] [facility] Comment on above: Performed By: #### C REANNA, BUN #### [facility] [id number] Wei Mccoy EGFR-NON AF [place]UGUESE >60 Normal >=60 [facility] Comment on above: Performed By: #### C REANNA, BUN #### [facility] [address] [address] [address] Wei Mccoy PREG HCG QUALon 03-15-2021 , QUAL Negative Normal NEGATIVE [facility] Comment on above: Performed By: #### P REG #### [facility] [address] [address] [address] Wei Mccoy CBC AUTO DIFFon 03-11-2021 BASO # 0.1 103/ul Normal 0.0-0.1 [facility] Comment on above: Performed By: #### C BC ####[facility] [address] [address]DrMimi Mccoy Basophils/100 WBC (Bld) 0.6 % Normal 0.2-2.0 [facility] Comment on above: Performed By: #### C BC ####[facility] [address] [address]DrMimi Mccoy EO # 0.1 103/ul Normal 0.0-0.7 [facility] Comment on above: Performed By: #### C BC ####[facility] [address] [id number] Mccoy Eosinophils/100 WBC (Bld) 0.9 % Normal 0.9-7.0 [facility] Comment on above: Performed By: #### C BC ####[facility] [address] [id number] Mccoy Erythrocyte distribution width (RBC) [Ratio] 18.7 % Critically high 11.0-15.0 [facility] Comment on above: Performed By: #### C BC ####[facility] [address] [address]Dr. Wei Mccoy Hematocrit (Bld) [Volume fraction] 35.5 % Critically low 36.0-48.0 [facility] Comment on above: Performed By: #### C BC ####[facility] [address] [address]Dr. Wei Mccoy Hemoglobin (Bld) [Mass/Vol] 10.9 g/dL Critically low 12.0-16.0 [facility] Comment on above: Performed By: #### C BC ####[facility] [address] [place], [place] [address]DrMimi Mccoy IG # 0.04 10e3/ul Critically high 0.00-0.03 [facility] Comment on above: Performed By: #### C BC ####[facility] [address] [place], [place] [address]Dr. Wei Mccoy IG % 0.4 % Normal 0.0-0.5 [facility] Comment on above: Performed By: #### C BC ####[facility] [address] [place], [place] [address]DrMimi Mccoy LYMPH # 1.9 103/ul Normal 1.2-3.8 [facility] Comment on above: Performed By: #### C BC ####[facility] [address] [place], [place] [address]DrMimi Mccoy Lymphocytes/100 WBC (Bld) 18.0 % Critically low 20.5-60.0 [facility] Comment on above: Performed By: #### C BC ####[facility] [address] [place], [place] [address]DrMimi Mccoy MANUAL DIFF REQ NO Normal [facility] Comment on above: Performed By: #### C BC ####[facility] [address] [address]Dr. Wei Mccoy MCH (RBC) [Entitic mass] 24.4 pg Critically low 26.7-34.0 [facility] Comment on above: Performed By: #### C BC ####[facility] [address] [address]Dr. Wei Mccoy MCHC (RBC) [Mass/Vol] 30.7 g/dL Normal 29.9-35.2 [facility] Comment on above: Performed By: #### C BC ####[facility] [address] [address]DrMimi Mccoy MCV (RBC) [Entitic vol] 79.6 fL Critically low 81.0-99.0 [facility] Comment on above: Performed By: #### C BC ####[facility] [address] [place], [place] [address]DrMimi Mccoy MONO # 0.5 103/ul Normal 0.3-0.8 [facility] Comment on above: Performed By: #### C BC ####[facility] [address] [place], [place] [address]DrMimi Mccoy Monocytes/100 WBC (Bld) 4.8 % Normal 1.7-12.0 [facility] Comment on above: Performed By: #### C BC ####[facility] [address] [place], [place] [address]DrMimi Mccoy NEUT # 7.9 103/ul Critically high 1.4-6.5 [facility] Comment on above: Performed By: #### C BC ####[facility] [address] [place], [place] [address]DrMimi Mccoy Neutrophils/100 WBC (Bld) 75.3 % Critically high 43.0-75.0 [facility] Comment on above: Performed By: #### C BC ####[facility] [address] [place], [place] [address]DrMimi Mccoy Platelet mean volume (Bld) [Entitic vol] 8.8 fL Critically low 9.5-13.5 [facility] Comment on above: Performed By: #### C BC ####[facility] [address] [place], [place] [address]DrMiim Mccoy PLT 325 103/ul Normal 150-450 [facility] Comment on above: Performed By: #### C BC ####[facility] [address] [place], [place] [address]Ab. Wei Mccoy RBC 4.46 106/ul Normal 4.20-5.40 [facility] Comment on above: Performed By: #### C BC ####[facility] [address] [place], [place] [address]Sm. Wei Mccoy WBC 10.5 103/ul Normal 4.0-11.0 [facility] Comment on above: Performed By: #### C BC ####[facility] [address] [place], [place] [address]Pr. Wei Mccoy Covid-19 PCR (CVDTBH)on 02-20 SARS-CoV-2 (COVID-19) RNA JOSEFINA+probe Ql (Unsp spec) Not detected Normal NOT DETECTED [facility] Comment on above: Result Comment: This test is not yet approved or cleared by the [place] FDA. When there are no FDA-approved or cleared tests available, and other criteria are met, FDA can make tests available under an emergency access mechanism called an Emergency Use Authorization (EUA). The EUA for this test is supported by the Fishing [employer] Winding [employer] Operator of Health and Human Service's (HHS's) declaration that circumstances exist to justify the emergency use of in vitro diagnostics for the detection and/or diagnosis of the virus that causes COVID-19. This EUA will remain in effect (meaning this test can be used) for the duration of the COVID-19 declaration justifying emergency of IVDs, unless it is terminated or revoked by FDA (after which the test may no longer be used). When diagnostic testing is negative, the possibility of a false negative should be considered in the context of a patient's recent exposures and the presence of clinical signs and symptoms consistent with SARS-CoV-2. Performed By: #### C VDTBH ####[facility] [address] [place], [place] [address]Oq. Wei Mccoy PROF 14(COMP METB)on 021 Albumin [Mass/Vol] 3.1 g/dL Critically low 3.5-5.0 [facility] Comment on above: Performed By: #### C MP #### [facility] [address] [address] [address] Wei Mccoy Albumin/Globulin [Mass ratio] 0.7 {ratio} Normal [facility] Comment on above: Performed By: #### C MP #### [facility] [address] [place] [address] Dr. Wei Mccoy ALP [Catalytic activity/Vol] 118 U/L Normal 38-126 [facility] Comment on above: Performed By: #### C MP #### [facility] [address] [place] [address] Dr. Wei Mccoy ALT [Catalytic activity/Vol] 52 U/L Normal 9-52 [facility] Comment on above: Performed By: #### C MP #### [facility] [address] [place] [address] Dr. Wei Mccoy Anion gap [Moles/Vol] 9.5 mmol/L Normal [facility] Comment on above: Performed By: #### C MP #### [facility] [address] [place] [address] Dr. Wei Mccoy AST [Catalytic activity/Vol] 28 U/L Normal 14-36 [facility] Comment on above: Performed By: #### C MP #### [facility] [address] [place] [address] Dr. Wei Mccoy Bilirubin [Mass/Vol] 0.3 mg/dL Normal 0.2-1.3 [facility] Comment on above: Performed By: #### C MP #### [facility] [address] [place] [address] Dr. Wei Mccoy Calcium [Mass/Vol] 8.3 mg/dL Critically low 8.4-10.2 [facility] Comment on above: Performed By: #### C MP #### [facility] [address] [place] [address] Dr. Wei Mccoy Chloride [Moles/Vol] 103 mmol/L Normal 98-107 [facility] Comment on above: Performed By: #### C MP #### [facility] [address] [address] [address] Wei Mccoy CO2 [Moles/Vol] 27.3 mmol/L Normal 22.0-30.0 [facility] Comment on above: Performed By: #### C MP #### [facility] [address] [address] [address] Wei Mccoy Creatinine [Mass/Vol] 0.85 mg/dL Normal 0.52-1.04 [facility] Comment on above: Performed By: #### C MP #### [facility] [address] [address] [address] Wei Mccoy EGFR-AF PORTUGUESE >60 Normal >=60 [facility] Comment on above: Performed By: #### C MP #### [facility] [address] [address] [address] Wei Mccoy EGFR-NON AF PORTUGUESE >60 Normal >=60 [facility] Comment on above: Performed By: #### C MP #### [facility] [address] [address] [address] Wei Mccyo Globulin (S) [Mass/Vol] 4.4 g/dL Normal [facility] Comment on above: Performed By: #### C MP #### [facility] [address] [address] [address] Wei Mccoy Glucose [Mass/Vol] 131 mg/dL Critically high 74-106 [facility] Comment on above: Performed By: #### C MP #### [facility] [address] [address] [address] Wei Mccoy Potassium [Moles/Vol] 3.8 mmol/L Normal 3.4-5.0 [facility] Comment on above: Performed By: #### C MP #### [facility] [address] [place] [address] Dr. Wei Mccoy Protein [Mass/Vol] 7.5 g/dL Normal 6.1-8.2 [facility] Comment on above: Performed By: #### C MP #### [facility] [address] [address] [address] Wei Mccoy Sodium [Moles/Vol] 136 mmol/L Critically low 137-145 [facility] Comment on above: Performed By: #### C MP #### [facility] [address] [address] [address] Wei Mccoy Urea nitrogen [Mass/Vol] 11.0 mg/dL Normal 7.0-17.0 [facility] Comment on above: Performed By: #### C MP #### [facility] [address] [address] [address] Wei Mccoy Urea nitrogen/Creatini ne [Mass ratio] 12.9 mg/mg Normal [facility] Comment on above: Performed By: #### C MP #### [facility] [address] [place] [address] Dr. Wei Mccoy TSHon 03-11-2021 TSH 0.970 uIU/mL Normal 0.470-4.680 [facility] Comment on above: Performed By: #### T SH ####[facility] [id number] [address] Wei Mccoy TSH RANGE SEE BELOW Normal [facility] Comment on above: Result Comment: <0.3 4 UIU/ml HYPERTHYROID 0.34-5.60 UIU/ml EUTHYROID >5.60 UIU/ml HYPOTHYROID Performed By: #### T SH ####[facility] [id number] [id number] Wei Mccoy TYPE AND SCREENon 03-11-2021 TYPE AND SCREEN Negative Normal [facility] Comment on above: Performed By: #### T NS #### [facility] [address] [place] [address] Dr. Wei Mccoy UA RANDOM W/MICROSCOPICon BACTERIA NONE SEEN Normal NONE SEEN [facility] Comment on above: Performed By: #### U AMIC #### [facility] [address] [place] [address] Dr. Wei Mccoy Bilirubin Ql (U) Negative Normal NEGATIVE [facility] Comment on above: Performed By: #### U AMIC #### [facility] [address] [place] [address] Dr. Wei Mccoy CAST NONE SEEN Normal NONE SEEN [facility] Comment on above: Performed By: #### U AMIC #### [facility] [address] [place] [address] Dr. Wei Mccoy Clarity (U) CLEAR Normal CLEAR [facility] Comment on above: Performed By: #### U AMIC #### [facility] [address] [address] [address] Wei Mccoy Color (U) LT. YELLOW Normal YELLOW [facility] Comment on above: Performed By: #### U AMIC #### [facility] [address] [address] [address] Wei Mccoy Crystals LM Nom (Urine sed) NONE SEEN Normal NONE SEEN [facility] Comment on above: Performed By: #### U AMIC #### [facility] [address] [place] [address] Dr. Wei Mccoy Epithelial cells LM Ql (Urine sed) FEW Abnormal NONE SEEN /RARE [facility] Comment on above: Performed By: #### U AMIC #### [facility] [address] [place] [address] Dr. Wei Mccoy Glucose Ql (U) Negative Normal NEGATIVE [facility] Comment on above: Performed By: #### U AMIC #### [facility] [address] [place] [address] Dr. Wei Mccoy Hemoglobin Ql (U) TRACE-INTACT Abnormal NEGATIVE [facility] Comment on above: Performed By: #### U AMIC #### [facility] [address] [address] [address] Wei Mccoy Ketones Ql (U) Negative Normal NEGATIVE [facility] Comment on above: Performed By: #### U AMIC #### [facility] [address] [place] [address] Dr. Wei Mccoy LEUKOCYTES Negative Normal NEGATIVE [facility] Comment on above: Performed By: #### U AMIC #### [facility] [address] [place] [address] Dr. Wei Mccoy MUCOUS NONE SEEN Normal NONE SEEN [facility] Comment on above: Performed By: #### U AMIC #### [facility] [address] [address] [address] Wei Mccoy Nitrite Ql (U) Negative Normal NEGATIVE [facility] Comment on above: Performed By: #### U AMIC #### [facility] [address] [address] [address] Wei Mccoy pH (U) 5.5 [pH] Normal 5-9 [facility] Comment on above: Performed By: #### U AMIC #### [facility] [address] [place] [address] Dr. Wei Mccoy RBC 0-2 Normal 0-2 [facility] Comment on above: Performed By: #### U AMIC #### [facility] [address] [place] [address] Dr. Wei Mccoy SPEC GRAVITY 1.020 Normal 1.005-<=1.025 [facility] Comment on above: Performed By: #### U AMIC #### [facility] [address] [place] [address] Dr. Wei Mccoy UA PROTEIN Negative Normal NEGATIVE/ TRACE [facility] Comment on above: Performed By: #### U AMIC #### [facility] [address] [place] [address] Dr. Wei Mccoy Urobilinogen Qn (U) 0.2 {Andi'U}/dL Normal 0.2 - 1.0 [facility] Comment on above: Performed By: #### U AMIC #### [facility] [address] [place] [address] Dr. Wei Mccoy WBC 0-2 Abnormal NONE SEEN [facility] Comment on above: Performed By: #### U AMIC #### [facility] [address] [place] [address] Dr. Wei Mccoy Vital Signs Date Time Vital Sign Value Performing Clinician Juan R melendez 04-30-2024 11:27-0500 Body height 149.9 cm Theresa Moreno MD Work Phone: [facility] 04-30-2024 11:27-0500 Body mass index (BMI) [Ratio] 37.97 kg/m2 Theresa Moreno MD Work Phone: [facility] 04-30-2024 11:27-0500 Body weight 85.28 kg Theresa Moreno MD Work Phone: [facility] 04-30-2024 11:27-0500 Diastolic blood pressure 84 mm[Hg] Theresa Moreno MD Work Phone: [facility] 04-30-2024 11:27-0500 Systolic blood pressure 124 mm[Hg] Theresa Moreno MD Work Phone: [facility] Encounters Encounter Date Encounter Type Care Provider Facility Start: 04-30-2024 End: 04-30-2024 Bamboo flowsheet Theresa Moreno MD Work Phone: [facility] Start: 04-30-2024 End: 04-30-2024 Bamboo Hookedheet Theresa Moreno MD Work Phone: [facility] Start: 04-30-2024 End: 04-30-2024 Office outpatient new 45 minutes Theresa Moreno MD Work Phone: [facility] Comment on above: LPRD (laryngopharyng eal reflux disease) (Primary Dx); LAD (lymphadenopathy), cervical; Throat pain; Nontoxic multinodular goiter (CMS/HCC) Start: 04-30-2024 End: 04-30-2024 ambulatory THERESA MORENO Not Available Start: 12-25-2023 End: 12-25-2023 ambulatory [facility] Start: 09-20-2021 End: 09-20-[address] JOEY TAVERA Facility:[facility] Start: 07-08-2021 End: 07-09-[address] JOEY TAVERA Facility:[facility] Start: 05-20-2021 End: 05-21-[address] JOEY TAVERA Facility:[facility] Start: 03-15-2021 Encounter for other preprocedural examination DR XIMENA LEONE [facility] Start: 03-15-2021 End: 03-16-[address] XIMENA LEONE Facility:[facility] Start: 03-12-2021 Encounter for preprocedural laboratory examination DR CARLINE HARVEY [facility] Start: 03-11-2021 End: 03-12-[address] CARLINE HARVEY Facility:[facility] Start: 03-11-2021 End: 03-12-2021 Encounter for preprocedural laboratory examination DR XIMENA LEONE Facility:[facility] Start: 03-08-2021 End: 03-09-[address] XIMENA LEONE Facility:[facility] Start: 03-08-2021 End: 03-09-2021 Encounter for other preprocedural examination DR XIMENA LEONE Facility:[facility] Plan of Treatment Date Care Activity Detail Author Start: 04-30-2024 End: 04-30-2024 Patient encounter procedure 04/30/2024 11:30 AM EST Office Visit [facility] [address] [facility] [address] [place] [id number] Theresa Moreno MD [address] [facility] [address] [place] [address] Arrived [facility] Comment on above: Arrived Payers Date Payer Category Payer [facility] Care O (unspecified) [employer] [id number] 1975 Unknown [id number] 1976 Unknown [id number] [id number] 1976 Unknown [id number] 1976 Unknown [id number] [id number] 1976 Unknown [id number] 1976 Unknown [id number] [id number] 1976 Unknown [id number] [id number] 1976 Unknown [id number] 1976 Unknown [id number] 1959 Unknown [id number] Social History Date Type Detail Facility Start: 04-25-2024 End: 04-30-2024 Tobacco smoking status [facility] Ex-smoker [facility] End: 04-13-2013 History of tobacco use Current smoker [facility] End: 04-13-2013 History of tobacco use Cigarette Smoker [facility] Start: 04-25-2024 End: 04-30-2024 Tobacco use and exposure Smokeless tobacco non-user [facility] Start: 04-25-2024 Alcoholic beverage intake Curr ent drinker of alcohol (finding) [facility] Start: 1975 Sex assigned at Not on file N [facility] Start: 04-30-2024 Gender identity Not on file [facility] Start: 04-30-2024 Cigarettes smoked cu rrent (pack per day) - Reported 1 [facility] Start: 04-30-2024 Alcoholic beverage intake Ex-drinker (finding) [facility] Progress note 04-30-2024 Note Date & Type Note Facility 04-30-2024 Note [facility] Consult Note [facility] Reason for visit: afib HPI: Billie Beltre is a 48 y.o. year old with past medical history of GERD, UC, here with referral from Dr. Tavera for atrial flutter. New patient here to establish care. Ref from Dr. Tavera for atrial fibrillation. She had stress test, echo, and event monitor back in Jan 2024. She states these tests were ordered because her Apple Watch tells her she's in afib and that her HR spikes . She has never felt palpitations. Denies SOB, lightheadedness/syncope, and bleeding on Eliquis. Sometimes feels a pain in her chest but states nothing alarming . She thinks her first episode of this was back in April 2023, and then again this December but unsure if there are episodes other times. Pulse check: NSR today Event Monitor: revealed episode of likely atrial fibrillation PMH: Past Medical History: Diagnosis Date Abnormal ECG Arrhythmia Atrial fibrillation (CMS/HCC) PSH: Past Surgical History: Procedure Laterality Date CHOLECYSTECTOMY HYSTERECTOMY SH: Social Determinants of Health Tobacco Use: Medium Risk (04/30/2024) Patient History Smoking Tobacco Use: Former Smokeless Tobacco Use: Never Passive Exposure: Past Alcohol Use: Not on file Financial Resource Strain: Not on file Food Insecurity: Not on file Transportation Needs: Not on file Physical Activity: Not on file Stress: Not on file Social Connections: Not on file Intimate Partner Violence: Not on file Depression: Not on file Housing Stability: Not on file Utilities: Not on file Health Literacy: Not on file Allergies: No Known Allergies Weight: 84.8kg Visit Vitals Pulse 59 Ht 1.499 m (4' 11 ) Wt 84.8 kg (187 lb) SpO2 96% BMI 37.77 kg/m??? Smoking Status Former BSA 1.88 m??? Meds: Current Outpatient Medications on File Prior to Visit Medication Sig Dispense Refill apixaban (Eliquis) 5 mg tablet Take 5 mg by mouth twice a day. pantoprazole (ProtoNix) 40 mg EC tablet Take 40 mg by mouth before breakfast. No current facility-administered medications on file prior to visit. Review of Systems Cardiovascular: Positive for chest pain. All other systems reviewed and are negative. Physical Exam: Constitutional General Appearance: well-nourished, well-developed, appears stated age Level of Distress: comfortable Psychiatric Mental Status: alert, normal affect Orientation: oriented to time, place, and person Insight: good judgement Eyes Lids and Conjunctivae: non-injected, no xanthelasma ENMT Ears: no lesions on external ear Nose: no lesions on external nose Oropharynx: no cyanosis, no pallor Neck Neck: supple, trachea midline Carotid Arteries: bilateral normal upstroke, no bruits Jugular Veins: normal jugular venous pressure Thyroid: not enlarged Lungs Respiratory Effort: unlabored Chest Exam: normal curvature, no thoracic deformity Auscultation: clear, no wheezing, no rales, no rhonchi Cardiovascular Rate And Rhythm: regular Heart Sounds: normal S1, normal s2, no gallop Systolic Murmur: not heard Diastolic Murmur: not heard Extremities: no cyanosis, no edema, no peripheral signs of emboli Peripheral Pulses Radial Pulse: normal Abdomen Inspection and Palpation: soft, non distended, no bruit, non tender Musculoskeletal Inspection: no joint swelling Neurologic Gait: normal gait Skin Inspection and Palpation: warm and dry Nails: no clubbing Labs: Labs: Hgb 15.3, Na 140, K+ 4.0, creatinine 0.84, TSH 1.129 EKG: No results found for this or any previous visit (from the past 4464 hour(s)). Echo: 01/31/24 Stress test: Coronary angiogram: @CATH@ Diagnostic Imaging: Event Monitor 02/07/24 Assessment and Plan: #Atrial fibrillation , CHADVASC of 1 (age) -Seen on event monitor from 01/2024. Patient is asymptomatic with her episodes, only notices because her watch shows that her heart rate is high. -On eliquis 5 mg BID for anticoagulation. -Discussed ablation with patient as this is likely not her first episode and she is unable to quantify her episodes. After discussion, she wants to proceed after new years. Discussed RF modificaton. Neftaly Casey MD Cardiac Electrophysiology [facility] History of Present illness Narrative 04-30-2024 Theresa Moreno MD - 04/30/2024 11:30 AM EST Note Date & Type Note Facility 04-30-2024 History of Presen t illness Narrative Images from the original note were not included. Subjective Patient ID: Billie Beltre is a 48 y.o. female who presents for Throat Pain Pt reports about one month ago she developed brent throat pain. Pain decreased since starting abx. Started protonix one year ago. Takes in the morning, but does not eat for hours . Works midnights and takes med before going to bed. Pt concerned about having been exposed to HPV [address] neck obtained that shows 2.0x1.3x0.6cm RT and 2.1x1.0x0.7cm LT cervical LAD. CT neck ordered buy pending. Review of Systems HENT: Positive for ear pain and sore throat. Respiratory: Positive for cough. Musculoskeletal: Positive for neck pain. Neurological: Positive for headaches. All other systems reviewed and are negative. Family History Problem Relation Name Age of Onset Cancer Mother Radha lung Migraines Mother Radha Cancer Father lung Active Ambulatory Problems Diagnosis Date Noted A-fib ([facility]) 04/25/2024 Ulcerative proctitis ([facility]) 04/25/2024 Ulcerative colitis ([facility]) 04/25/2024 Hx of nummular eczema 04/25/2024 GERD (gastroesophageal reflux disease) 04/25/2024 Diverticulosis 04/25/2024 Resolved Ambulatory Problems Diagnosis Date Noted No Resolved Ambulatory Problems Past Medical History: Diagnosis Date Headache Migraine ([facility]) Past Surgical History: Procedure Laterality Date CHOLECYSTECTOMY 2020 HYSTERECTOMY 2020 TYMPANOSTOMY TUBE PLACEMENT No Known Allergies Current Outpatient Medications on File Prior to Visit Medication Sig Dispense Refill apixaban (Eliquis) 5 MG tablet Take 5 mg by mouth in the morning and 5 mg before bedtime. pantoprazole (Protonix) 40 MG EC tablet Take 40 mg by mouth in the morning. Take before meals. No current facility-administered medications on file prior to visit. Objective Last Recorded Vitals Vitals: 04/30/24 1127 BP: 124/84 ENT Physical Exam Constitutional Appearance: patient appears well-developed and well-nourished, Head and Face Appearance: head appears normal and face appears atraumatic; Ear Ear comments: Brent ears normal Nose External Nose: nares patent bilaterally; external nose normal; Internal Nose: nasal mucosa normal; Oral Cavity/Oropharynx Lips: normal; Teeth: normal; Gums: gingiva normal; Tongue: normal; Oral mucosa: normal; Hard palate: normal; Base of Tongue: normal; Posterior pharyngeal wall: normal; OC/OP comments: IDL - no mass or ulcer Neck Neck: neck normal; neck palpation normal; Thyroid: thyroid normal; Respiratory Inspection: breathing unlabored; normal breathing rate; Auscultation: breath sounds are clear; Cardiovascular Inspection: extremities are warm and well perfused; no peripheral edema present; Auscultation: regular rate and rhythm; Patient ID: Billie Beltre is a 48 y.o. female. Procedures A diagnostic flexible fiberoptic laryngoscopy was performed. The flexible fiberoptic laryngoscope was placed into the nose and advanced to the level of the tip of the epiglottis. Examination of the larynx including both surfaces of the epiglottis false and true vocal folds, arytenoids and surrounding mucosal surfaces show no evidence of lesion, ulceration or mass. Normal bilateral true vocal fold motion is present. Bilateral piriform sinuses and base of tongue appear without lesion Assessment/Plan Diagnoses and all orders for this visit: LPRD (laryngopharyngeal reflux disease) - famotidine (Pepcid) 20 MG tablet; Take 1 tablet (20 mg) by mouth at bedtime LAD (lymphadenopathy), cervical Throat pain Nontoxic multinodular goiter (CMS/HCC) There is no sign of a H&N neoplasm on exam. I suspect throat sx are due to LPRD. We need to adjust the timing of meds to account for pt's work schedule. I will also add HS pepcid. I agree with CT neck given US findings. I will see pt back after US Pt has a remote h/o thyroid nodules. States she was sent for an FNA, but the specimen was nondiagnostic. Did not return for repeat FNA and no further US ordered. We will assess thyroid on there CT. Answers submitted by the patient for this visit: Sore Throat Questionnaire (Submitted on 04/24/2024) Chief Complaint: Sore throat Chronicity: new Onset: 1 to 4 weeks ago Progression since onset: unchanged Pain worse on: right Fever: no fever pain severity now: mild Pain - numeric: 1/10 strep: Yes documented in this encounter [facility] Evaluation note Note Date & Type Note Facility Evaluation note Diagnosis LPRD (laryngopharyngeal reflux disease)- Primary Acute laryngitis, without mention of obstruction LAD (lymphadenopathy), cervical Throat pain Nontoxic multinodular goiter (CMS/HCC) Nontoxic multinodular goiter documented in this encounter [facility] Summary Purpose Family History No Family History Records FoundNo Family History Records FoundNo Family History Records FoundNo Family History Records Found Advance Directives No Advanced Directives Records FoundNo Advanced Directives Records FoundNo Advanced Directives Records FoundNo Advanced Directives Records Found Additional Source Comments INFORMATION SOURCE (unrecogn ized section and content) DATE CREATED AUTHOR 12/30/2021 [facility] DATE CREATED AUTHOR AUTHOR'S ORGANIZ ATION 12/27/2023 [facility] DATE CREATED AUTHOR AUTHOR'S ORGANIZ ATION 05/03/2024 [facility] EPIC DATE CREATED AUTHOR AUTHOR'S ORGANIZ ATION 05/03/2024 [facility] Care Teams (unrecognized sec tion and content) Social Science Manager Relationship Specialty Start Date End Date Joey Tavera MD [address] [place] [address] PCP - General Family Medicine 04/30/24 Social Science Manager Relationship Specialty Start Date End Date Joey Tavera MD [address] [place] [address] PCP - General Family Medicine 04/30/24 Reason for Visit (unrecogniz ed section and content) Reason Comments Throat Pain FOR RECORDS PERTAINING TO PATIENTS WHO ARE OR HAVE BEEN ENROLLED IN A CHEMICAL DEPENDENCY/SUBSTANCEABUSE PROGRAM, SOME INFORMATION MAY BE OMITTED. This clinical summary was aggregated from multiple sources. Caution should be exercised in using it in the provision of clinical care. This summary normalizes information from multiple sources, and as a consequence, information in this document may materially change the coding, format and clinical context of patient data. In addition, data may be omitted in some cases. CLINICAL DECISIONS SHOULD BE BASED ON THE PRIMARY CLINICAL RECORDS. [facility] provides no warranty or guarantee of the accuracy or completeness of information in this document.
== END 2024-05-09 13:25 | disposition home or self-care (01) ==
LOC: CT 13:24
PROVIDERS: PCP Family Medicine; Visit Provider Family Medicine
DX: R07.0 Pain in throat (principal)
CPT/HCPCS: 70491; Q9967

== ENCOUNTER 2024-06-18 15:40 | Outpatient (OUT) | payer OTHER, SELFPAY ==
--- OUTSIDE RECORDS SUMMARY | 2024-06-18 16:00 | XMS_ITS | CCD ---
Author Organization [facility] CliniSyla Care Team Providers Care Equine Science Instructor Name Role Phone VASU, DR BUENO Attending Unavailable HOY, DR COOK Primary Care Unavailable KARASIK, DR BUENO Admitting Unavailable KARASIK, DR BUENO Consulting Unavailable EDUARDO, PETERSON Consulting Unavailable DORKOSKDEEPTHI KAHN Consulting Unavailable KARASIK, DR BUENO Attending Unavailable [...] Unavailable HOY, DR COOK Primary Care Unavailable ZIEBER, DR WERO Freed Consulting Unavailable GUILLERMOY, DR COOK Attending Unavailable HOY, DR COOK Consulting Unavailable HOY, DR COOK Primary Care Unavailable HOY, DR COOK Admitting Unavailable ZIEBER, DR WERO Freed Consulting Unavailable HOY, DR COOK Attending Unavailable HOY, DR COOK Consulting Unavailable GUILLERMOY, DR COOK Admitting Unavailable HOY, DR COOK Primary Care Unavailable TOPPENISH, DR BROOKS Consulting Unavailable CANDICE, DR CARLINE Alberts Consulting Unavailmaria fernanda HARVEY, DR CARLINE Alberts Admitting Unavailmaria fernanda TAVERA, DR COOK Primary Care Unavailable CANDICE, DR CARLINE Alberts Attending UnavailJOEY Gates Referring Unavailable JOEY TAVERA Primary Care Unavailable Joey Tavera MD Primary Care Provider [phone] NEFTALY CASEY Attending Unavailable THERESA MORENO Attending Unavailable THERESA MORENO Attending Unavailable Medications Current Medications Medication Drug Class(es) Dates Sig (Normalized) Sig (Original) apixaban 5 mg oral tablet (6 sources) Factor Xa Inhibitor take 1 tablet by mouth in the morning apixaban (Eliquis) 5 MG tablet Take 5 mg by mouth in the morning and 5 mg before bedtime. Active famotidine 20 mg oral tablet (5 sources) Histamine-2 Receptor Antagonist Start: 04-30-2024 End: 07-29-2024 take 1 tablet by mouth at bedtime famotidine (Pepcid) 20 MG tablet Indications: LPRD (laryngopharyngeal reflux disease) Take 1 tablet (20 mg) by mouth at bedtime 90 tablet 04/30/2024 07/29/2024 Active pantoprazole 40 mg delayed release oral tablet (6 sources) Proton Pump Inhibitor take 1 tablet by mouth before mealtime pantoprazole (Protonix) 40 MG EC tablet Take 40 mg by mouth in the morning. Take before meals. Active Problems Active Problems Problem Classification Problem Date Documented Date Episodic/Chronic Cardiac dysrhythmias (8 sources) Atrial fibrillation; Translations: [Unspecified atrial fibrillation] Onset: 04-25-2024 04-25-2024 Chronic Diverticulosis and diverticulitis (6 sources) Diverticular disease; Translations: [Diverticulosis of intestine, part unspecified, without perforation or abscess without bleeding] Onset: 04-25-2024 04-25-2024 Chronic Esophageal disorders (11 sources) Gastro-esophageal reflux disease without esophagitis; Translations: [...] breast] Onset: 12-25-2023 Episodic Other skin disorders (6 sources) H/O: eczema; Translations: [Personal history of diseases of the skin and subcutaneous tissue] Onset: 04-25-2024 04-25-2024 Episodic Other upper respiratory disease (2 sources) Pain in throat; Translations: [Pain in throat] 04-30-2024 Episodic Regional enteritis and ulcerative colitis (12 sources) Ulcerative (chronic) proctitis without complications; Translations: [Ulcerative (chronic) proctitis] Onset: 04-25-2024 04-25-2024 Chronic Spondylosis; intervertebral disc disorders; other back problems (1 source) Spondylosis without myelopathy or radiculopathy, thoracolumbar region; Translations: [SPONDYLS W/O MYELO-/RADICULOP TL] Onset: 05-26-2021 Chronic Thyroid disorders (6 sources) Nontoxic single thyroid nodule; Translations: [Non-toxic multinodular goiter] Onset: 09-20-2021 Chronic Thyroid disorders (2 sources) Mass of thyroid gland; Translations: [Disorder of thyroid, unspecified] 05-31-2024 Episodic Unclassified (1 source) CONTACT W/AND (SUSP) EXPOS [...] 04-08-2021 Episodic Other aftercare (1 source) Other custodial (current) drug therapy; Translations: [OTH EPITAXIAL REACTOR OPERATOR CURRENT DRUG THERAPY] Onset: 04-08-2021 Episodic Other female genital disorders (1 source) Other noninflammatory disorders of ovary, fallopian tube and broad ligament; Translations: [OTH NONINFL D/O OVARY TUBE AND BRD LIG] Onset: 04-08-2021 Episodic Other female genital disorders (1 source) Hypertrophy of uterus; Translations: [HYPERTROPHY OF UTERUS] Onset: 03-15-2021 Episodic Results Test Name Value Interpretation Reference Range Facility Prep for Procedureon 024 Prep for Procedure [id number] Billie Le 1975 F Date Provider Department Center 05/10/2024 1987-REJI [facility]A [facility] Family History Problem Relation Age of Onset Cancer Mother Cancer Father Family Status - Relation Status Age at Mother Father Normal [facility] Office Visiton 04-30-2024 Follow-up visit [id number] Vernon Le 1975 F Date Provider Department Center 04/30/2024 241-NEFTALY CASEY [facility] Family History Problem Relation Age of Onset Cancer Mother Cancer Father Family Status - Relation Status Age at Mother Father Level of Service:92913 SD OFFICE/OUTPATIENT NEW MODERATE MDM 45 MINUTES Normal [facility] MAMM SCREENING BILATERAL W 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 2. Pathology results are pending. Normal [facility] US SINGLE QUAD RT UPPERon US SINGLE [...] by: WERO HEAD Date: 2021-07-08 10:06 Normal [facility] XR TSPINE 3 VIEWSon 05-21-20 21 XR [...] by: TODD MCCURDY Date: 2021-05-21 06:56 Normal [facility] BUNon 03-16-2021 Urea nitrogen [Mass/Vol] 11.0 mg/dL Normal 7.0-17.0 [facility] Comment on above: Performed By: #### C REANNA, BUN #### [facility] [address] [place] [address] Dr. Wei Mccoy CBC AUTO DIFFon 03-16-2021 BASO # 0.0 103/ul Normal 0.0-0.1 [facility] Comment on above: Performed By: #### C BC #### [facility] [address] [place] [address] Dr. Wei Mccoy Basophils/100 WBC (Bld) 0.3 % Normal 0.2-2.0 [facility] Comment on above: Performed By: #### C BC #### [facility] [address] [place] [address] Dr. Wei Mccoy EO # 0.0 103/ul Normal 0.0-0.7 [facility] Comment on above: Performed By: #### C BC #### [facility] [address] [place] [address] Dr. Wei Mccoy Eosinophils/100 WBC (Bld) 0.1 % Critically low 0.9-7.0 [facility] Comment on above: Performed By: #### C BC #### [facility] [address] [place] [address] Dr. Wei Mccoy Erythrocyte distribution width (RBC) [Ratio] 20.3 % Critically high 11.0-15.0 [facility] Comment on above: Performed By: #### C BC #### [facility] [address] [place] [address] Dr. Wei Mccoy Hematocrit (Bld) [Volume fraction] 30.9 % Critically low 36.0-48.0 [facility] Comment on above: Performed By: #### C BC #### [facility] [address] [place] [address] Dr. Wei Mccoy Hemoglobin (Bld) [Mass/Vol] 9.5 g/dL Critically low 12.0-16.0 [facility] Comment on above: Performed By: #### C BC #### [facility] [address] [place] [address] Dr. Wei Mccoy IG # 0.06 10e3/ul Critically high 0.00-0.03 [facility] Comment on above: Performed By: #### C BC #### [facility] [address] [place] [address] Dr. Wei Mccoy IG % 0.4 % Normal 0.0-0.5 [facility] Comment on above: Performed By: #### C BC #### [facility] [address] [place] [address] Dr. Wei Mccoy LYMPH # 2.8 103/ul Normal 1.2-3.8 [facility] Comment on above: Performed By: #### C BC #### [facility] [address] [place] [address] Dr. eWi Mccoy Lymphocytes/100 WBC (Bld) 17.5 % Critically low 20.5-60.0 [facility] Comment on above: Performed By: #### C BC #### [facility] [address] [place] [address] Dr. Wei Mccoy MANUAL DIFF REQ NO Normal [facility] Comment on above: Performed By: #### C BC #### [facility] [address] [place] [address] Dr. Wei Mccoy MCH (RBC) [Entitic mass] 24.5 pg Critically low 26.7-34.0 [facility] Comment on above: Performed By: #### C BC #### [facility] [address] [place] [address] Dr. Wei Mccoy MCHC (RBC) [Mass/Vol] 30.7 g/dL Normal 29.9-35.2 [facility] Comment on above: Performed By: #### C BC #### [facility] [address] [address] [address] Wei Mccoy MCV (RBC) [Entitic vol] 79.6 fL Critically low 81.0-99.0 [facility] Comment on above: Performed By: #### C BC #### [facility] [address] [address] [address] Wei Mccoy MONO # 0.9 103/ul Critically high 0.3-0.8 [facility] Comment on above: Performed By: #### C BC #### [facility] [address] [address] [address] Wei Mccoy Monocytes/100 WBC (Bld) 5.7 % Normal 1.7-12.0 [facility] Comment on above: Performed By: #### C BC #### [facility] [address] [address] [address] Wei Mccoy NEUT # 12.0 103/ul Critically high 1.4-6.5 [facility] Comment on above: Performed By: #### C BC #### [facility] [address] [address] [address] Wei Mccoy Neutrophils/100 WBC (Bld) 76.0 % Critically high 43.0-75.0 [facility] Comment on above: Performed By: #### C BC #### [facility] [address] [address] [address] Wei Mccoy Platelet mean volume (Bld) [Entitic vol] 9.5 fL Normal 9.5-13.5 [facility] Comment on above: Performed By: #### C BC #### [facility] [address] [address] [address] Wei Mccoy PLT 289 103/ul Normal 150-450 [facility] Comment on above: Performed By: #### C BC #### [facility] [address] [address] [address] Wei Mccoy RBC 3.88 106/ul Critically low 4.20-5.40 [facility] Comment on above: Performed By: #### C BC #### [facility] [address] [address] [address] Wei Mccoy WBC 15.8 103/ul Critically high 4.0-11.0 [facility] Comment on above: Performed By: #### C BC #### [facility] [address] [address] [address] Wei Mccoy CREATININEon 03-16-2021 Creatinine [Mass/Vol] 0.84 mg/dL Normal 0.52-1.04 [facility] Comment on above: Performed By: #### C REANNA, BUN #### [facility] [address] [address] [address] Wei Mccoy EGFR-AF ALBANIAN >60 Normal >=60 [facility] Comment on above: Performed By: #### C REANNA, BUN #### [facility] [address] [address] [address] Wei Mccoy EGFR-NON AF ALBANIAN >60 Normal >=60 [facility] Comment on above: Performed By: #### C REANNA, BUN #### [facility] [address] [address] [address] Wei Mccoy PREG HCG QUALon 03-15-2021 , QUAL Negative Normal NEGATIVE [facility] Comment on above: Performed By: #### P REG #### [facility] [address] [address] [address] Wei Mccoy CBC AUTO DIFFon 03-11-2021 BASO # 0.1 103/ul Normal 0.0-0.1 [facility] Comment on above: Performed By: #### C BC ####[facility] [address] [address]Dr. Wei Mccoy Basophils/100 WBC (Bld) 0.6 % Normal 0.2-2.0 [facility] Comment on above: Performed By: #### C BC ####[facility] [address] [address]Dr. Wei Mccoy EO # 0.1 103/ul Normal 0.0-0.7 [facility] Comment on above: Performed By: #### C BC ####[facility] [address] [address]Dr. Wei Mccoy Eosinophils/100 WBC (Bld) 0.9 % Normal 0.9-7.0 [facility] Comment on above: Performed By: #### C BC ####[facility] [address] [address]Dr. Wei Mccoy Erythrocyte distribution width (RBC) [Ratio] 18.7 % Critically high 11.0-15.0 [facility] Comment on above: Performed By: #### C BC ####[facility] [address] [place], [place] [address]Dr. Wei Mccoy Hematocrit (Bld) [Volume fraction] 35.5 % Critically low 36.0-48.0 [facility] Comment on above: Performed By: #### C BC ####[facility] [address] [place], [place] [address]Dr. Wei Mccoy Hemoglobin (Bld) [Mass/Vol] 10.9 g/dL Critically low 12.0-16.0 [facility] Comment on above: Performed By: #### C BC ####[facility] [address] [place], [place] [address]Dr. Wei Mccoy IG # 0.04 10e3/ul Critically high 0.00-0.03 [facility] Comment on above: Performed By: #### C BC ####[facility] [address] [place], [place] [address]Dr. Wei Mccoy IG % 0.4 % Normal 0.0-0.5 [facility] Comment on above: Performed By: #### C BC ####[facility] [address] [place], [place] [address]Dr. Wei Mccoy LYMPH # 1.9 103/ul Normal 1.2-3.8 [facility] Comment on above: Performed By: #### C BC ####[facility] [address] [place], [place] [address]Dr. Wei Mccoy Lymphocytes/100 WBC (Bld) 18.0 % Critically low 20.5-60.0 [facility] Comment on above: Performed By: #### C BC ####[facility] [address] [address]Dr. Wei Mccoy MANUAL DIFF REQ NO Normal [facility] Comment on above: Performed By: #### C BC ####[facility] [address] [id number]. Wei Mccoy MCH (RBC) [Entitic mass] 24.4 pg Critically low 26.7-34.0 [facility] Comment on above: Performed By: #### C BC ####[facility] [address] [address]Dr. Wei Mccoy MCHC (RBC) [Mass/Vol] 30.7 g/dL Normal 29.9-35.2 [facility] Comment on above: Performed By: #### C BC ####[facility] [address] [address]Dr. Wei Mccoy MCV (RBC) [Entitic vol] 79.6 fL Critically low 81.0-99.0 [facility] Comment on above: Performed By: #### C BC ####[facility] [address] [address]Dr. Wei Mccoy MONO # 0.5 103/ul Normal 0.3-0.8 [facility] Comment on above: Performed By: #### C BC ####[facility] [address] [address]Dr. Wei Mccoy Monocytes/100 WBC (Bld) 4.8 % Normal 1.7-12.0 [facility] Comment on above: Performed By: #### C BC ####[facility] [address] [place], [place] [address]DrMimi Mccoy NEUT # 7.9 103/ul Critically high 1.4-6.5 [facility] Comment on above: Performed By: #### C BC ####[facility] [address] [address]DrMimi Mccoy Neutrophils/100 WBC (Bld) 75.3 % Critically high 43.0-75.0 [facility] Comment on above: Performed By: #### C BC ####[facility] [address] [place], [place] [address]Ls. Wei Mccoy Platelet mean volume (Bld) [Entitic vol] 8.8 fL Critically low 9.5-13.5 [facility] Comment on above: Performed By: #### C BC ####[facility] [address] [address]Dr. Wei Mccoy PLT 325 103/ul Normal 150-450 [facility] Comment on above: Performed By: #### C BC ####[facility] [address] [address]Dr. Wei Mccoy RBC 4.46 106/ul Normal 4.20-5.40 [facility] Comment on above: Performed By: #### C BC ####[facility] [address] [address]Dr. Wei Mccoy WBC 10.5 103/ul Normal 4.0-11.0 [facility] Comment on above: Performed By: #### C BC ####[facility] [address] [place], [place] [address]Ht. Wei Mccoy Covid-19 PCR ([facility]on [facility]20 SARS-CoV-2 (COVID-19) RNA JOSEFINA+probe Ql (Unsp spec) Not detected Normal NOT DETECTED [facility] Comment on above: Result Comment: This test is not yet approved or cleared by the [place] FDA. When there are no FDA-approved or cleared tests available, and other criteria are met, FDA can make tests available under an emergency access mechanism called an Emergency Use Authorization (EUA). The EUA for this test is supported by the [employer] Operator of Health and Human Service's (HHS's) [...] consistent with SARS-CoV-2. Performed By: #### C [facility] ####[facility] [address] [address]Dr. Wei Mccoy PROF 14(COMP METB)on 021 Albumin [Mass/Vol] 3.1 g/dL Critically low 3.5-5.0 [facility] Comment on above: Performed By: #### C MP #### [facility] [address] [place] [address] Dr. Wei Mccoy Albumin/Globulin [Mass ratio] 0.7 {ratio} Normal [facility] Comment on above: Performed By: #### C MP #### [facility] [address] [place] [address] Dr. Wei Mccoy ALP [Catalytic activity/Vol] 118 U/L Normal 38-126 [facility] Comment on above: Performed By: #### C MP #### [facility] [address] [place] [address] Dr. Wei Mccoy ALT [Catalytic activity/Vol] 52 U/L Normal 9-52 [facility] Comment on above: Performed By: #### C MP #### [facility] [address] [place] [address] Dr. Wei Mccoy Anion gap [Moles/Vol] 9.5 mmol/L Normal [facility] Comment on above: Performed By: #### C MP #### [facility] [address] [place] [address] Dr. Wei Mccoy AST [Catalytic activity/Vol] 28 U/L Normal 14-36 [facility] Comment on above: Performed By: #### C MP #### [facility] [address] [place] [address] Dr. Wei Mccoy Bilirubin [Mass/Vol] 0.3 mg/dL Normal 0.2-1.3 [facility] Comment on above: Performed By: #### C MP #### [facility] [address] [address] [address] Wei Mccoy Calcium [Mass/Vol] 8.3 mg/dL Critically low 8.4-10.2 [facility] Comment on above: Performed By: #### C MP #### [facility] [address] [place] [address] Dr. Wei Mccoy Chloride [Moles/Vol] 103 mmol/L Normal 98-107 [facility] Comment on above: Performed By: #### C MP #### [facility] [address] [place] [address] Dr. Wei Mccoy CO2 [Moles/Vol] 27.3 mmol/L Normal 22.0-30.0 [facility] Comment on above: Performed By: #### C MP #### [facility] [address] [place] [address] Dr. Wei Mccoy Creatinine [Mass/Vol] 0.85 mg/dL Normal 0.52-1.04 [facility] Comment on above: Performed By: #### C MP #### [facility] [address] [place] [address] Dr. Wei Mccoy EGFR-AF ALBANIAN >60 Normal >=60 [facility] Comment on above: Performed By: #### C MP #### [facility] [address] [place] [address] Dr. Wei Mccoy EGFR-NON AF ALBANIAN >60 Normal >=60 [facility] Comment on above: Performed By: #### C MP #### [facility] [address] [place] [address] Dr. Wei Mccoy Globulin (S) [Mass/Vol] 4.4 g/dL Normal [facility] Comment on above: Performed By: #### C MP #### [facility] [address] [place] [address] Dr. Wei Mccoy Glucose [Mass/Vol] 131 mg/dL Critically high 74-106 [facility] Comment on above: Performed By: #### C MP #### [facility] [address] [place] [address] Dr. Wei Mccoy Potassium [Moles/Vol] 3.8 mmol/L Normal 3.4-5.0 [facility] Comment on above: Performed By: #### C MP #### [facility] [address] [address] [address] Wei Mccoy Protein [Mass/Vol] 7.5 g/dL Normal 6.1-8.2 [facility] Comment on above: Performed By: #### C MP #### [facility] [address] [address] [address] Wei Mccoy Sodium [Moles/Vol] 136 mmol/L Critically low 137-145 [facility] Comment on above: Performed By: #### C MP #### [facility] [address] [address] [address] Wei Mccoy Urea nitrogen [Mass/Vol] 11.0 mg/dL Normal 7.0-17.0 [facility] Comment on above: Performed By: #### C MP #### [facility] [address] [address] [address] Wei Mccoy Urea nitrogen/Creatini ne [Mass ratio] 12.9 mg/mg Normal [facility] Comment on above: Performed By: #### C MP #### [facility] [address] [address] [address] Wei Mccoy TSHon 03-11-2021 TSH 0.970 uIU/mL Normal 0.470-4.680 [facility] Comment on above: Performed By: #### T SH ####[facility] [address] [address]Dr. Wei Mccoy TSH RANGE SEE BELOW Normal [facility] Comment on above: Result Comment: <0.3 4 UIU/ml HYPERTHYROID 0.34-5.60 UIU/ml EUTHYROID >5.60 UIU/ml HYPOTHYROID Performed By: #### T SH ####[facility] [address] [address]Dr. Wei Mccoy TYPE AND SCREENon 03-11-2021 TYPE AND SCREEN Negative Normal [facility] Comment on above: Performed By: #### T NS #### [facility] [address] [address] [address] Wei Mccoy UA RANDOM W/MICROSCOPICon BACTERIA NONE SEEN Normal NONE SEEN [facility] Comment on above: Performed By: #### U AMIC #### [facility] [address] [address] [address] Wei Mccoy Bilirubin Ql (U) Negative Normal NEGATIVE [facility] Comment on above: Performed By: #### U AMIC #### [facility] [address] [address] [address] Wei Mccoy CAST NONE SEEN Normal NONE SEEN [facility] Comment on above: Performed By: #### U AMIC #### [facility] [address] [address] [address] Wei Mccoy Clarity (U) CLEAR Normal CLEAR [facility] Comment on above: Performed By: #### U AMIC #### [facility] [address] [address] [address] Wei Mccoy Color (U) LT. YELLOW Normal YELLOW [facility] Comment on above: Performed By: #### U AMIC #### [facility] [address] [address] [address] Wei Mccoy Crystals LM Nom (Urine sed) NONE SEEN Normal NONE SEEN [facility] Comment on above: Performed By: #### U AMIC #### [facility] [address] [address] [address] Wei Mccoy Epithelial cells LM Ql (Urine sed) FEW Abnormal NONE SEEN /RARE [facility] Comment on above: Performed By: #### U AMIC #### [facility] [address] [address] [address] Wei Mccoy Glucose Ql (U) Negative Normal NEGATIVE [facility] Comment on above: Performed By: #### U AMIC #### [facility] [address] [address] [address] Wei Mccoy Hemoglobin Ql (U) TRACE-INTACT Abnormal NEGATIVE [facility] Comment on above: Performed By: #### U AMIC #### [facility] [address] [address] [address] Wie Mccoy Ketones Ql (U) Negative Normal NEGATIVE [facility] Comment on above: Performed By: #### U AMIC #### [facility] [address] [place] [address] Dr. Wei Mccoy LEUKOCYTES Negative Normal NEGATIVE [facility] Comment on above: Performed By: #### U AMIC #### [facility] [address] [place] [address] Dr. Wei Mccoy MUCOUS NONE SEEN Normal NONE SEEN [facility] Comment on above: Performed By: #### U AMIC #### [facility] [address] [address] [address] Wei Mccoy Nitrite Ql (U) Negative Normal NEGATIVE [facility] Comment on above: Performed By: #### U AMIC #### [facility] [address] [place] [address] Dr. Wei Mccoy pH (U) 5.5 [pH] Normal 5-9 [facility] Comment on above: Performed By: #### U AMIC #### [facility] [address] [place] [address] Dr. Wei Mccoy RBC 0-2 Normal 0-2 [facility] Comment on above: Performed By: #### U AMIC #### [facility] [address] [place] [address] Dr. Wei Mccoy SPEC GRAVITY 1.020 Normal 1.005-<=1.025 [facility] Comment on above: Performed By: #### U AMIC #### [facility] [address] [address] [address] Wei Mccoy UA PROTEIN Negative Normal NEGATIVE/ TRACE [facility] Comment on above: Performed By: #### U AMIC #### [facility] [address] [address] [address] Wei Mccoy Urobilinogen Qn (U) 0.2 {Andi'U}/dL Normal 0.2 - 1.0 [facility] Comment on above: Performed By: #### U AMIC #### [facility] [address] [place] [address] Dr. Wei Mccoy WBC 0-2 Abnormal NONE SEEN [facility] Comment on above: Performed By: #### U AMI #### [facility] [address] [address] [address] Wei Mccoy Vital Signs Date Time Vital Sign Value Performing Clinician Juan R melendez 05-31-2024 14:23-0500 Body height 149.9 cm Theresa Moreno MD Work Phone: [facility] 05-31-2024 14:23-0500 Body mass index (BMI) [Ratio] 39.99 kg/m2 Theresa Moreno MD Work Phone: [facility] 05-31-2024 14:23-0500 Body weight 89.81 kg Theresa Moreno MD Work Phone: [facility] 05-31-2024 14:23-0500 Diastolic blood pressure 78 mm[Hg] Theresa Moreno MD Work Phone: [facility] 05-31-2024 14:23-0500 Heart rate 56 /min Theresa Moreno MD Work Phone: [facility] 05-31-2024 14:23-0500 Systolic blood pressure 120 mm[Hg] Theresa Moreno MD Work Phone: [facility] 04-30-2024 11:27-0500 Body height 149.9 cm Theresa Moreno MD Work Phone: [facility] 04-30-2024 11:27-0500 Body mass index (BMI) [Ratio] 37.97 kg/m2 Theresa Moreno MD Work Phone: [facility] 04-30-2024 11:27-0500 Body weight 85.28 kg Theresa Moreno MD Work Phone: [facility] 04-30-2024 11:27-0500 Diastolic blood pressure 84 mm[Hg] Theresa Moreno MD Work Phone: [facility] 04-30-2024 11:27-0500 Systolic blood pressure 124 mm[Hg] Theresa Moreno MD Work Phone: [facility] Encounters Encounter Date Encounter Type Care Provider Facility Start: 05-31-2024 End: 05-31-2024 Office outpatient visit 15 minutes Theresa Moreno MD Work Phone: [facility] Comment on above: LPRD (laryngopharyng eal reflux disease) (Primary Dx); Thyroid mass ([facility]/HCC) Start: 05-31-2024 End: 05-31-2024 ambulatory THERESA MORENO Not Available Start: 05-31-2024 End: 05-31-2024 Bamboo avni Moreno MD Work Phone: [facility] Start: 05-31-2024 End: 05-31-2024 Edwin Moreno MD Work Phone: [facility] Start: 04-30-2024 End: 04-30-2024 Edwin Moreno MD Work Phone: [facility] Start: 04-30-2024 End: 04-30-2024 Bammariiao avni Moreno MD Work Phone: [facility] Start: 04-30-2024 End: 04-30-2024 Office outpatient new 45 minutes Theresa Moreno MD Work Phone: [facility] Comment on above: LPRD (laryngopharyng eal reflux disease) (Primary Dx); LAD (lymphadenopathy), cervical; Throat pain; Nontoxic multinodular goiter (CMS/HCC) Start: 04-30-2024 End: 04-30-2024 ambulatory NEFTALY [facility] Start: 12-25-2023 End: 12-25-2023 ambulatory JOEY TAVERA [facility] Start: 09-20-2021 End: 09-20-[address] JOEY TAVERA Facility:[facility] Start: 07-08-2021 End: 07-09-[address] JOEY TAVERA Facility:[facility] Start: 05-20-2021 End: 05-21-[address] JOEY TAVERA Facility:[facility] Start: 03-15-2021 Encounter for other preprocedural examination DR XIMENA LEONE [facility] Start: 03-15-2021 End: 03-16-[address] XIMENA LEONE Facility:[facility] Start: 03-12-2021 Encounter for preprocedural laboratory examination DR CARLINE HARVEY [facility] Start: 03-11-2021 End: 03-12-[address] CARLINE HARVEY Facility:[facility] Start: 03-11-2021 End: 03-12-2021 Encounter for preprocedural laboratory examination DR XIMENA LEONE Facility:[facility] Start: 03-08-2021 End: 03-09-[address] XIMENA LEONE Facility:[facility] Start: 03-08-2021 End: 03-09-2021 Encounter for other preprocedural examination DR XIMENA LEONE Facility:[facility] Plan of Treatment Date Care Activity Detail Author Start: 05-31-2024 End: 05-31-2024 Patient encounter procedure 05/31/2024 2:20 PM EST Office Visit [facility] [address] [place] [address] [facility] [id number] Theresa Moreno MD [address] [facility] [address] [place] [address] Arrived [facility] Comment on above: Arrived Start: 04-30-2024 End: 04-30-2024 Patient encounter procedure 04/30/2024 11:30 AM EST Office Visit [facility] [address] [facility] [address] [place] [address] Theresa Moreno MD [address] [facility] [address] [place] [address] Arrived [facility] Comment on above: Arrived Payers Date Payer Category Payer Managed Care HMO (unspecified) [employer] [id number] 1976 Unknown [id number]. [id number] 1976 Unknown [id number] [id number]. [id number] 1976 Unknown [id number] [id number]. 2.593 1976 Unknown [id number] [id number]. 2.593 1976 Unknown [id number] [id number]. 2.593 1976 Unknown [id number] [id number]. 2.593 1976 Unknown [id number] [id number]. 2.593 1976 Unknown [id number] [id number]. 2.1286 1976 Unknown [id number]. 2.1259 1976 Unknown [id number] [id number] 1959 Unknown [id number] Social History Date Type Detail Facility Start: 04-25-2024 End: 04-30-2024 Tobacco smoking status DEIS Ex-smoker [facility] End: 04-13-2013 History of tobacco use Current smoker [facility] End: 04-13-2013 History of tobacco use Cigarette Smoker [facility] Start: 04-25-2024 End: 04-30-2024 Tobacco use and exposure Smokeless tobacco non-user [facility] Start: 04-25-2024 Alcoholic beverage intake Curr ent drinker of alcohol (finding) [facility] Start: 1975 Sex assigned at Not on file [facility] Start: 04-30-2024 Gender identity Not on file [facility] Start: 04-30-2024 Cigarettes smoked cu rrent (pack per day) - Reported 1 [facility] Start: 04-30-2024 Alcoholic beverage intake Ex-drinker (finding) [facility] History of Present illness Narrative 05-31-2024 Theresa Moreno MD - 05/31/2024 2:20 PM EST Note Date & Type Note Facility 05-31-2024 History of Presen t illness Narrative Subjective Patient ID: Billie Le is a 48 y.o. female who presents for Thyroid Nodule (Follow up [facility] 05/09/24) CT neck reviewed and is unremarkable with the exception of a left substernal thyroid mass. Note made of a 08/2021 thyroid US. Throat discomfort persists Family History Problem Relation Name Age of Onset Cancer Mother Radha lung Migraines Mother Radha Cancer Father lung Active Ambulatory Problems Diagnosis Date Noted A-fib (CMS/HCC) 04/25/2024 Ulcerative proctitis ([facility]/HCC) 04/25/2024 Ulcerative colitis (CMS/HCC) 04/25/2024 Hx of nummular eczema 04/25/2024 GERD (gastroesophageal reflux disease) 04/25/2024 Diverticulosis 04/25/2024 Resolved Ambulatory Problems Diagnosis Date Noted No Resolved Ambulatory Problems Past Medical History: Diagnosis Date Headache Migraine (CMS/HCC) Past Surgical History: Procedure Laterality Date CHOLECYSTECTOMY 2020 HYSTERECTOMY 2020 TYMPANOSTOMY TUBE PLACEMENT No Known Allergies Current Outpatient Medications on File Prior to Visit Medication Sig Dispense Refill apixaban (Eliquis) 5 MG tablet Take 5 mg by mouth in the morning and 5 mg before bedtime. famotidine (Pepcid) 20 MG tablet Take 1 tablet (20 mg) by mouth at bedtime 90 tablet 0 pantoprazole (Protonix) 40 MG EC tablet Take 40 mg by mouth in the morning. Take before meals. No current facility-administered medications on file prior to visit. Objective Last Recorded Vitals Vitals: 05/31/24 1423 BP: 120/78 Pulse: 56 ENT Physical Exam Oral Cavity/Oropharynx OC/OP comments: OC/OP/IDL - no mass or ulcer Assessment/Plan Diagnoses and all orders for this visit: LPRD (laryngopharyngeal reflux disease) Thyroid mass (CMS/HCC) Continue LPRD regimen Pt has a fairly large left inf thyroid mass evident on CT and noted on 08/2021 US fro [facility]. There is no pathologic LAD. Repeat US at [facility] documented in this encounter [facility] Progress note 04-30-2024 Note Date & Type Note Facility 04-30-2024 Note [facility] Electrophysiology Consult Note [facility] Cardiology [facility] Reason for visit: afib HPI: Billie Le is a 48 y.o. year old with [...] RF modificaton. Neftaly Casey MD Cardiac Electrophysiology [facility] History of Present illness Narrative 04-30-2024 Theresa Moreno MD - 04/30/2024 11:30 AM EST Note Date & Type Note Facility 04-30-2024 History of Presen t illness Narrative Images from the original note were not included. Subjective Patient ID: Billie Le is a 48 y.o. female who presents [...] Active Ambulatory Problems Diagnosis Date Noted A-fib ([facility]) 04/25/2024 Ulcerative proctitis (CMS/HCC) 04/25/2024 Ulcerative colitis (CMS/HCC) 04/25/2024 Hx of nummular eczema 04/25/2024 GERD (gastroesophageal reflux disease) 04/25/2024 Diverticulosis 04/25/2024 Resolved Ambulatory Problems Diagnosis Date Noted No Resolved Ambulatory Problems Past Medical History: Diagnosis Date Headache Migraine (CMS/HCC) Past Surgical History: Procedure Laterality Date CHOLECYSTECTOMY [...] regular rate and rhythm; Patient ID: Billie Le is a 48 y.o. female. Procedures A [...] 1/10 strep: Yes documented in this encounter [facility] Evaluation note Note Date & Type Note Facility Evaluation note Diagnosis LPRD (laryngopharyngeal reflux disease)- Primary Acute laryngitis, without mention of obstruction LAD (lymphadenopathy), cervical Throat pain Nontoxic multinodular goiter (CMS/HCC) Nontoxic multinodular goiter documented in this encounter [facility] Evaluation note Note Date & Type Note Facility Evaluation note Diagnosis LPRD (laryngopharyngeal reflux disease)- Primary Acute laryngitis, without mention of obstruction Thyroid mass (CMS/HCC) Unspecified disorder of thyroid documented in this encounter [facility] Summary Purpose Family History No Family History Records FoundNo Family History Records FoundNo Family History Records FoundNo Family History Records Found Advance Directives No Advanced Directives Records FoundNo Advanced Directives Records FoundNo Advanced Directives Records FoundNo Advanced Directives Records Found Additional Source Comments INFORMATION SOURCE (unrecogn ized section and content) DATE CREATED AUTHOR 12/30/2021 [facility] DATE CREATED AUTHOR AUTHOR'S ORGANIZ ATION 12/27/2023 [facility] DATE CREATED AUTHOR AUTHOR'S ORGANIZ ATION 05/14/2024 [facility] DATE CREATED AUTHOR AUTHOR'S ORGANIZ ATION 06/05/2024 [facility] EPIC Care Teams (unrecognized sec tion and content) Equine Science Instructor Relationship Specialty Start Date End Date Joey Tavera MD [address] [place] [address] PCP - General Family Medicine 04/30/24 Equine Science Instructor Relationship Specialty Start Date End Date Joey Tavera MD [address] [place] [address] PCP - General Family Medicine 04/30/24 Equine Science Instructor Relationship Specialty Start Date End Date Joey Tavera MD [address] [place] [address] [phone] PCP - General Family Medicine 04/30/24 Equine Science Instructor Relationship Specialty Start Date End Date Joey Tavera MD [address] [place] [address] [phone] PCP - General Family Medicine 04/30/24 Reason for Visit (unrecogniz ed section and content) Reason Comments Throat Pain Reason Comments Thyroid Nodule Follow up [facility] FOR RECORDS PERTAINING TO PATIENTS WHO ARE [...] BE BASED ON THE PRIMARY CLINICAL RECORDS. [facility] [employer] [facility]. provides no warranty or guarantee of the accuracy or completeness of information in this document.
[2024-06-18 16:01] LABS: Basophils Absolute Auto 0.1 10^3/uL (0.0-0.1); Basophils Percent Auto 0.7 % (0.2-2.0); Eosinophils Absolute Auto 0.1 10^3/uL (0.0-0.7); Eosinophils Percent Auto 1.4 % (0.9-7.0); Hematocrit 47.6 % (36.0-48.0); Hemoglobin 15.4 g/dL (12.0-16.0); Immature Granulocytes Abs Auto 0.02 10^3/uL (0.00-0.03); Immature Granulocytes Pct Auto 0.3 % (0.0-0.5); Lymphocytes Absolute Auto 1.6 10^3/uL (1.2-3.8); Mean Corpuscular HGB Conc 32.4 g/dL (29.9-35.2); Mean Corpuscular Hemoglobin 31.2 pg (26.7-34.0); Mean Corpuscular Volume 96.4 fL (81.0-99.0); Mean Platelet Volume 9.3 fL (9.5-13.5); Monocytes Absolute Auto 0.5 10^3/uL (0.3-0.8); Neutrophils Absolute Auto 4.8 10^3/uL (1.4-6.5); Neutrophils Percent Auto 67.6 % (43.0-75.0); Platelet Count 297 10^3/uL (150-450); Red Blood Count 4.94 10^6/uL (4.20-5.40); Red Cell Distribution Width 14.6 % (11.0-15.0)
[2024-06-18 16:42] LABS: BUN Creatinine Ratio 18.5; Calcium 8.4 mg/dL (8.5-10.1); Carbon Dioxide 27.5 mmol/L (21.0-32.0); Chloride 103 mmol/L (98-107); Estimated GFR (African America >60 (>=60 mL/min/1.73m^2); Estimated GFR (Non-African Ame >60 (>=60 mL/min/1.73m^2); Glucose 89 mg/dL (74-106); Potassium 4.5 mmol/L (3.5-5.1); Sodium 137 mmol/L (136-145)
== END 2024-06-18 15:41 | disposition home or self-care (01) ==
LOC: LAB 15:41
PROVIDERS: PCP Family Medicine; Visit Provider Internal Medicine Cardiovascular Disease
DX: I48.0 Paroxysmal atrial fibrillation (principal)
CPT/HCPCS: 36415; 80048; 85025

== ENCOUNTER 2024-12-23 12:09 | Outpatient (OUT) | payer OTHER, SELFPAY ==
--- OUTSIDE RECORDS SUMMARY | 2024-12-18 12:23 | XMS_ITS | Encounter Summary ---
Author Organization [facility] bCODE s tem Address [id number] [address] [place] [address] Care Team Providers Care Computer Assembler Name Role Phone Davion Tavera MD Primary Care Provider [phone] Encounter Details Date Type Department Care Team (Latest Contact Info) Description 12/18/2024 12:23 PM EDT - 12/18/2024 11:59 PM EDT Hospital Encounter [facility] - Ultrasound [address] [place] [phone] Thyroid nodule Discharge Disposition: Home Social History Tobacco Use Types Packs/Day Years Used Date Smoking Tobacco: Former Cigarettes 1 15 1 2 - 2006 Smokeless Tobacco: Never Alcohol Use Standard Drinks/Week Comments Not Currently 0 (1 standard drink = 0.6 oz pur e alcohol) Childcare Answer Date Recorded Childcare Unknown 10/31/2018 Employment Answer Date Recorded Employment Unknown 10/31/2018 Purpose - Life Answer Date Recorded Purpose and direction in life Unknown Comments No Sex and Gender Information Value Date Recorded Sex Assigned at Female 05/25/2021 3:14 PM EST Legal Sex Female 11:49 AM EDT Gender Identity Female 05/25/2021 3:14 PM EST Sexual Orientation Not on file documented as of this encounter Medications at Time of Discharge omeprazole (PriLOSEC) 10 mg capsule Take 10 mg by mouth daily. documented as of this encounter Plan of Treatment Not on file documented as of this encounter Procedures Procedure Name Priority Date/Time Associated Diagnosis Comments US THYROID Routine 12/18/2024 12:45 PM EDT Thyroid nodule documented in this encounter Results * Ultrasound thyroid (12/18/2024 12:45 PM EDT) Anatomical Region Laterality Modality Neck Ultrasound 12/19/2024 3:24 PM EDT Narrative 12/19/2024 3:29 PM EDT CLINICAL INFORMATION: Thyroid nodule. TECHNIQUE: Real time sonography of the thyroid gland performed. COMPARISON: 06/20/2024 FINDINGS: Right Lobe Size: 4.3 x 2.3 x 2.0 cm Left Lobe Size: 5.6 x 2.2 x 2.3 cm Isthmus: 4.1 mm NODULES: 1.) Size: 0.8 x 0.8 x 0.7 cm Laterality: right Location: sup Composition: Mixed cystic/solid -1 Echogenicity: isoechoic - 1 Shape: Not taller than wide -0 Margins: Smooth - 0 Echogenic foci: None -0 ACR TI RADS risk category: TR2 (2 points). Not suspicious. No FNA. ? 2.) Size: 0.9 x 1.0 x 0.8 cm Laterality: right Location: inf Composition: Mixed cystic/solid -1 Echogenicity: isoechoic - 1 Shape: Not taller than wide -0 Margins: Smooth - 0 Echogenic foci: None -0 ACR TI RADS risk category: TR2 (2 points). Not suspicious. No FNA. ? 3.) Size: 1.1 x 0.9 x 0.8 cm Laterality: right Location: inf Composition: Mixed cystic/solid -1 Echogenicity: isoechoic - 1 Shape: Not taller than wide -0 Margins: Smooth - 0 Echogenic foci: None -0 ACR TI RADS risk category: TR2 (2 points). Not suspicious. No FNA. 4.) Size: 3.6 x 2.6 x 2.5 cm, previously 3.5 cm Laterality: left Location: inf Composition: Solid -2 Echogenicity: isoechoic - 1 Shape: Not taller than wide -0 Margins: Smooth - 0 Echogenic foci: None -0 ACR TI RADS risk category: TR3 (3 points). FNA if greater or equal to 2.5 cm. Follow if greater or equal to 1.5 cm. IMPRESSION: Stable 3.6 cm left pedunculated TR 3 nodule versus posteroinferior extension of thyroid. Recommend follow-up ultrasound in 2 years to complete 5 years of sonographic monitoring. ACR TI-RADS recommendations: TR5 (greater than or equal to 7 points) - FNA if greater than or equal to 1cm, follow-up ultrasound if nodule is 0.5 - 0.9 cm every year for 5 years. TR4 (4 - 6 points) - FNA if greater than or equal to 1.5 cm, follow-up ultrasound if nodule is 1 -1.4 cm at 1, 2, 3 and 5 years. TR3 (3 points) - FNA if greater than or equal to 2.5 cm, follow-up ultrasound if nodule is 1.5 -2.4 cm at 1, 3 and 5 years. TR2 (2 points) & TR1 (0 points) - No FNA or follow-up. Finalized by Wilber Schmidt on 12/19/2024 3:29 PM Procedure Note Wilber Schmidt MD - 12/19/2024 CLINICAL INFORMATION: Thyroid nodule. TECHNIQUE: Real time sonography of the thyroid gland performed. COMPARISON: 06/20/2024 FINDINGS: Right Lobe Size: 4.3 x 2.3 x 2.0 cm Left Lobe Size: 5.6 x 2.2 x 2.3 cm Isthmus: 4.1 mm NODULES: 1.) Size: 0.8 x 0.8 x 0.7 cm Laterality: right Location: sup Composition: Mixed cystic/solid -1 Echogenicity: isoechoic - 1 Shape: Not taller than wide -0 Margins: Smooth - 0 Echogenic foci: None -0 ACR TI RADS risk category: TR2 (2 points). Not suspicious. No FNA. ? 2.) Size: 0.9 x 1.0 x 0.8 cm Laterality: right Location: inf Composition: Mixed cystic/solid -1 Echogenicity: isoechoic - 1 Shape: Not taller than wide -0 Margins: Smooth - 0 Echogenic foci: None -0 ACR TI RADS risk category: TR2 (2 points). Not suspicious. No FNA. ? 3.) Size: 1.1 x 0.9 x 0.8 cm Laterality: right Location: inf Composition: Mixed cystic/solid -1 Echogenicity: isoechoic - 1 Shape: Not taller than wide -0 Margins: Smooth - 0 Echogenic foci: None -0 ACR TI RADS risk category: TR2 (2 points). Not suspicious. No FNA. 4.) Size: 3.6 x 2.6 x 2.5 cm, previously 3.5 cm Laterality: left Location: inf Composition: Solid -2 Echogenicity: isoechoic - 1 Shape: Not taller than wide -0 Margins: Smooth - 0 Echogenic foci: None -0 ACR TI RADS risk category: TR3 (3 points). FNA if greater or equal to 2.5cm. Follow if greater or equal to 1.5 cm. IMPRESSION: Stable 3.6 cm left pedunculated TR 3 nodule versus posteroinferiorextension of thyroid. Recommend follow-up ultrasound in 2 years tocomplete 5 years of sonographic monitoring. ACR TI-RADS recommendations: TR5 (greater than or equal to 7 points) - FNA if greater than or equal to1cm, follow-up ultrasound if nodule is 0.5 - 0.9 cm every year for 5years. TR4 (4 - 6 points) - FNA if greater than or equal to 1.5 cm, follow-upultrasound if nodule is 1 -1.4 cm at 1, 2, 3 and 5 years. TR3 (3 points) - FNA if greater than or equal to 2.5 cm, follow-upultrasound if nodule is 1.5 -2.4 cm at 1, 3 and 5 years. TR2 (2 points) & TR1 (0 points) - No FNA or follow-up. Finalized by Wilber Schmidt on 12/19/2024 3:29 PM us Theresa Dalal MD G US ORDERABLES Final Result documented in this encounter Visit Diagnoses Diagnosis Thyroid nodule Nontoxic uninodular goiter documented in this encounter Care Teams Computer Assembler Relationship Specialty Start Date End Date Davion Tavera MD PCP - General Family Medicine 05/18/18 documented as of this encounter
--- OUTSIDE RECORDS SUMMARY | 2024-12-23 10:20 | XMS_ITS | Encounter Summary ---
Author Organization [facility] Address [address] [place] [address] Care Team Providers Care Unhairing Inspector Name Role Phone Davion Tavera MD Primary Care Provider [phone] Reason for Visit * Reason Comments Thyroid Nodule 6 month US [facility] 06/20/24 Encounter Details Date Type Department Care Team (Late st Contact Info) Description 12/23/2024 10:20 AM EDT Office Visit [facility] [address] [address] [place] [address] Theresa Dalal MD [address] [facility] [address] [place] [address] Nontoxic multinodular goiter (Primary Dx) Social History Tobacco Use Types Packs/Day Years Used Date Smoking Tobacco: Former Cigarettes 1 15 Q uit: 04/13/2013 Smokeless Tobacco: Never Alcohol Use Standard Drinks/Week Comments Not Currently 1 (1 standard drink = 0.6 oz pur e alcohol) Comments Unknown Sex and Gender Information Value Date Recorded Sex Assigned at Not on file Legal Sex Female 7:01 PM EDT Gender Identity Not on file Sexual Orientation Not on file documented as of this encounter Last Filed Vital Signs Vital Sign Reading Time Taken Comments Blood Pressure 111/79 12/23/2024 10:28 AM EDT Pulse - - Temperature - - Respiratory Rate - - Oxygen Saturation - - Inhaled Oxygen Concentration - - Weight 89.8 kg (198 lb) 12/23/2024 10:28 AM EDT Height 149.9 cm (4' 11 ) 12/23/2024 10:28 AM EDT Body Mass Index 39.99 12/23/2024 10:28 AM EDT documented in this encounter Progress Notes * Theresa Dalal MD - 12/23/2024 10:20 AM EDT Subjective Patient ID: Billie Beltre is a 49 y.o. female who presents for Thyroid Nodule (6 month US [facility] 06/20/24) US shows dominant nodue [id number] compared to 35mm 6 mo ago. Nodule was 32mm 3 years ago Family History Problem Relation Name Age of Onset Cancer Mother Radha lung Migraines Mother Radha Cancer Father lung Active Ambulatory Problems Diagnosis Date Noted A-fib (HCC) 04/25/2024 Ulcerative proctitis (HCC) 04/25/2024 Ulcerative colitis (HCC) 04/25/2024 Hx of nummular eczema 04/25/2024 GERD (gastroesophageal reflux disease) 04/25/2024 Diverticulosis 04/25/2024 Knee osteoarthritis 12/19/2024 Rectal bleeding in pediatric patient 04/30/2024 Resolved Ambulatory Problems Diagnosis Date Noted No Resolved Ambulatory Problems Past Medical History: Diagnosis Date Headache Migraine Past Surgical History: Procedure Laterality Date CARDIAC ELECTROPHYSIOLOGY STUDY AND ABLATION 06/2024 CHOLECYSTECTOMY 2020 HYSTERECTOMY 2020 TYMPANOSTOMY TUBE PLACEMENT No Known Allergies Current Outpatient Medications on File Prior to Visit Medication Sig Dispense Refill apixaban (Eliquis) 5 MG tablet Take 5 mg by mouth in the morning and 5 mg before bedtime. pantoprazole (Protonix) 40 MG EC tablet Take 40 mg by mouth in the morning. Take before meals. venlafaxine XR (Effexor XR) 75 MG 24 hr capsule Take 75 mg by mouth in the morning. [DISCONTINUED] famotidine (Pepcid) 20 MG tablet Take 1 tablet (20 mg) by mouth at bedtime 90 tablet0 No current facility-administered medications on file prior to visit. Objective Last Recorded Vitals Vitals: 12/23/24 1028 BP: 111/79 ENT Physical Exam Constitutional Appearance: patient appears well-developed, well-nourished and well-groomed, Communication/Voice: communication appropriate for developmental age; vocal quality normal; Assessment/Plan Diagnoses and all orders for this visit: Nontoxic multinodular goiter Stable MNG. Repeat US one year and then prn if stable documented in this encounter Plan of Treatment Not on file documented as of this encounter Visit Diagnoses Diagnosis Nontoxic multinodular goiter- Primary Nontoxic multinodular goiter documented in this encounter Care Teams Unhairing Inspector Relationship Specialty Start Date End Date Davion Tavera MD [address] [place] [address] PCP - General Family Medicine 12/17/24 documented as of this encounter
--- OUTSIDE RECORDS SUMMARY | 2024-12-23 12:12 | XMS_ITS | Clinical Summary ---
Author Organization [facility] Address [address] [facility], [address] [place] [address] Care Team Providers Care Thermal Cutter Hand Name Role Phone Unavailable Primary Care Provider Unavailabl e Allergies No known active allergies Medications omeprazole (PRILOSEC) 40 MG capsuleIndicati ons:GERD (gastroesophage al reflux disease) Take 1 capsule by mouth daily. 30 capsule 1 04/29/2013 Active Family History Medical History Relation Name Comments Lung Cancer Mother Relation Name Status Comments Mother Social History Tobacco Use Types Packs/Day Years Used Date Smoking Tobacco: Never Alcohol Use Standard Drinks/Week Comments Yes 0 (1 standard drink = 0.6 oz pur e alcohol) Comments No Sex and Gender Information Value Date Recorded Sex Assigned at Not on file Legal Sex Female 1:31 AM EST Gender Identity Not on file Sexual Orientation Not on file Last Filed Vital Signs Vital Sign Reading Time Taken Comments Blood Pressure 120/72 04/29/2013 1:10 PM EST Pulse - - Temperature - - Respiratory Rate - - Oxygen Saturation - - Inhaled Oxygen Concentration - - Weight 90.7 kg (200 lb) 04/29/2013 1:10 PM EST Height 149.9 cm (4' 11 ) 04/29/2013 1:10 PM EST Body Mass Index 40.4 04/29/2013 1:10 PM EST Plan of Treatment Not on file
--- OUTSIDE RECORDS SUMMARY | 2024-12-23 12:12 | XMS_ITS | Encounter Summary ---
Author Organization [facility] Address [address] [place] [address] Care Team Providers Care Materials Planning Analyst Name Role Phone Davion Tavera MD Primary Care Provider [phone] Encounter Details Date Type Department Care Team (Late st Contact Info) Description 06/20/2024 External Result Encounter [facility] [address] [place] [address] Theresa Dalal MD [address] [place] [address] Social History Tobacco Use Types Packs/Day Years [...] on file documented as of this encounter Plan of Treatment Not on file documented as of this encounter Procedures Procedure Name Priority Date/Time Associated Diagnosis Comments US THYROID 06/20/2024 3:34 PM EST documented in this encounter Results * US thyroid (06/20/2024 3:34 PM EST) Anatomical Region Laterality Modality Head, Neck Ultrasound 06/20/2024 3:34 PM EST Narrative 06/20/2024 3:33 PM EST THIS EXAM WAS PERFORMED AT [facility] CLINICAL INFORMATION: Thyroid nodules. TECHNIQUE: Real time sonography of the thyroid gland performed. COMPARISON: 08/23/2021 FINDINGS: Thyroid size: Normal Right thyroid lobe measures: 5.4 x 1.8 x 2.0 cm Left thyroid lobe measures: 5.6 x 2.1 x 2.2 cm Overall thyroid texture: Homogeneous Anterior mid right lobe TR 4 nodule 1.0 cm, previously 1.6 cm. Posterior mid right lobe TR 3 nodules 1.1 cm, previously 1.6 cm. Inferior left lobe TR 3 nodules 3.5 cm, not significantly changed. Previously identified anterior left lobe 1.0 cm TR 3 nodule no longer present. IMPRESSION: Bilateral thyroid nodules, largest TR 4 nodule 1.0 cm. No follow-up required. ACR TI-RADS recommendations: TR5 (greater than or [...] 3 and 5 years. TR2 (2 points) TR1 (0 points) - No FNA or follow-up. Finalized by Florencio Masters MD on 06/20/2024 3:33 PM Procedure Note Radiology, Radiologist, - 06/20/2024 THIS EXAM WAS PERFORMED AT [facility] CLINICAL INFORMATION: Thyroid nodules. TECHNIQUE: Real time sonography of the thyroid gland performed. COMPARISON: 08/23/2021 FINDINGS: Thyroid size: Normal Right thyroid lobe measures: 5.4 x 1.8 x 2.0 cm Left thyroid lobe measures: 5.6 x 2.1 x 2.2 cm Overall thyroid texture: Homogeneous Anterior mid right lobe TR 4 nodule 1.0 cm, previously 1.6 cm. Posterior mid right lobe TR 3 nodules 1.1 cm, previously 1.6 cm. Inferior left lobe TR 3 nodules 3.5 cm, not significantly changed. Previously identified anterior left lobe 1.0 cm TR 3 nodule no longerpresent. IMPRESSION: Bilateral thyroid nodules, largest TR 4 nodule 1.0 cm. No follow-uprequired. ACR TI-RADS recommendations: TR5 (greater than or [...] 3 and 5 years. TR2 (2 points) TR1 (0 points) - No FNA or follow-up. Finalized by Florencio Masters MD on 06/20/2024 3:33 PM us Theresa Dalal MD IMG US PROCEDURES Final Resul t documented in this encounter Visit Diagnoses Not on filedocumented in this encounter Care Teams Materials Planning Analyst Relationship Specialty Start Date End Date Davion Tavera MD [address] [place] [address] [phone] PCP - General Family Medicine 12/17/24 documented as of this encounter
--- OUTSIDE RECORDS SUMMARY | 2024-12-23 12:12 | XMS_ITS | Encounter Summary ---
Author Organization [facility] Address [address] [place] [address] Care Team Providers Care Nuclear Equipment Research Engineer Name Role Phone Davion Tavera MD Primary Care Provider [phone] Encounter Details Date Type Department Care Team (Late st Contact Info) Description 05/29/2024 Orders Only [facility] [address] [facility] [address] [place] [phone] Davion Tavera MD [address] [place] [address] Social History Tobacco Use Types Packs/Day Years [...] Procedure Name Priority Date/Time Associated Diagnosis Comments CT SCAN : S/T NECK W CONTRAST Routine 05/09/2024 3:06 PM EST documented in this encounter Results * CT SCAN : S/T NECK W CONTRAST (05/09/2024 3:06 PM EST) Anatomical Region Laterality Modality Radiographic Mari ging us Davion Tavera MD IMG XR PROCEDURES Final Result documented in this encounter Visit Diagnoses Not on filedocumented in this encounter Care Teams Nuclear Equipment Research Engineer Relationship Specialty Start Date End Date Davion Tavera MD [address] [place] [address] PCP - General Family Medicine 12/17/24 documented as of this encounter
--- OUTSIDE RECORDS SUMMARY | 2024-12-23 12:12 | XMS_ITS | Encounter Summary ---
Author Organization [facility] Address [address] [place] [address] Care Team Providers Care Drycleaner Name Role Phone Davion Tavera MD Primary Care Provider [phone] Encounter Details Date Type Department Care Team (Late st Contact Info) Description 04/30/2024 Orders Only [facility] [address] [facility] [address] [place] [phone] Marii Baron MD [address] [facility] [place] [address] Social History Tobacco Use Types Packs/Day Years [...] Name Priority Date/Time Associated Diagnosis Comments US SOFT TISSUE HEAD/NECK Routine 04/24/2024 12:[address] NECK SOFT TISSUE W & WO CON Routine 10/11/2023 12:10 PM EDT documented in this encounter Results * US SOFT TISSUE HEAD/NECK (04/24/2024 12:51 PM EST) Anatomical Region Laterality Modality Radiographic Mari ging Davion Tavera MD IMG XR PROCEDURES Final Result * CT NECK SOFT TISSUE W & WO CON (10/11/2023 12:10 PM EDT) Anatomical Region Laterality Modality Radiographic Mari ging us Marii Baron MD IMG XR PROCEDURES Final Result documented in this encounter Visit Diagnoses Not on filedocumented in this encounter Care Teams Drycleaner Relationship Specialty Start Date End Date Davion Tavera MD [address] [place] [phone] PCP - General Family Medicine 12/17/24 documented as of this encounter
--- OUTSIDE RECORDS SUMMARY | 2024-12-23 12:13 | XMS_ITS | Clinical Summary ---
Author Organization [facility] Address [address] [place] [address] Care Team Providers Care Multimedia Producer Name Role Phone Davion Tavera MD Primary Care Provider [phone] Allergies No known active allergies Medications apixaban (Eliquis) 5 MG tablet Take 5 mg by mouth in the morning and 5 mg before bedtime. Active pantoprazole (Protonix) 40 MG EC tablet Take 40 mg by mouth in the morning. Take before meals. Active venlafaxine XR (Effexor XR) 75 MG 24 hr capsule Take 75 mg by mouth in the morning. 5 Active famotidine (Pepcid) 20 MG tabletIndicati ons:LPRD (laryngopharyn geal reflux disease) Take 1 tablet (20 mg) by mouth at bedtime 90 tablet 4 12/24/19 25 Discontinued Active Problems Problem Noted Date Diagnosed Date Knee osteoarthritis 12/19/2024 Rectal bleeding in pediatric patient 04/30/2024 A-fib 04/25/2024 Ulcerative proctitis 04/25/2024 Ulcerative colitis 04/25/2024 Hx of nummular eczema 04/25/2024 GERD (gastroesophageal reflux disease) Diverticulosis 04/25/2024 Encounters Date Type Department Care Team Description 12/23/2024 10:20 AM EDT Office Visit [facility] [address] [place] [phone] Theresa Dalal MD Nontoxic multinodular goiter (Primary Dx) 12/23/2024 Bamboo flowsheet [facility] [address] [place] [address] Theresa Dalal MD 12/23/2024 Travel 12/19/2024 External Result Encounter [facility] [address] [place] [address] Theresa Dalal MD from Last 3 Months Family History Medical History Relation Name Comments Cancer Father lung Cancer Mother Radha lung Migraines Mother Radha Relation Name Status Comments Father Mother Radha Social History Tobacco Use Types Packs/Day Years Used Date Smoking Tobacco: Former Cigarettes 1 15 Q uit: 04/13/2013 Smokeless Tobacco: Never Tobacco Cessation:Counseling Given: Not Answered Alcohol Use Standard Drinks/Week Comments Not Currently [...] Pressure 111/79 12/23/2024 10:28 AM EDT Pulse 66 06/25/2024 2:30 PM EST Temperature - - Respiratory Rate - - Oxygen Saturation - - Inhaled Oxygen Concentration - - Weight 89.8 kg (198 lb) 12/23/2024 10:28 AM EDT Height 149.9 cm (4' 11 ) 12/23/2024 10:28 AM EDT Body Mass Index 39.99 12/23/2024 10:28 AM EDT Plan of Treatment Not on file Procedures Procedure Name Priority Date/Time Associated Diagnosis Comments US THYROID 12/19/2024 3:30 PM EDT from Last 3 Months Results * US thyroid (12/19/2024 3:30 PM EDT) Anatomical Region Laterality Modality Head, Neck Ultrasound 12/19/2024 3:30 PM EDT Narrative 12/19/2024 3:29 PM EDT THIS EXAM WAS PERFORMED AT [facility] CLINICAL INFORMATION: Thyroid nodule. TECHNIQUE: Real time [...] Schmidt on 12/19/2024 3:29 PM Procedure Note Radiology, Radiologist, MD - 12/19/2024 THIS EXAM WAS PERFORMED AT [facility] CLINICAL INFORMATION: Thyroid nodule. TECHNIQUE: Real time [...] 12/19/2024 3:29 PM us Theresa Dalal MD IMG US PROCEDURES Final Resul t from Last 3 Months Insurance [facility] [place] Address: [address] [address] Care Teams Multimedia Producer Relationship Specialty Start Date End Date Davion Tavera MD [address] [place] [address] PCP - General Family Medicine 12/17/24
--- OUTSIDE RECORDS SUMMARY | 2024-12-23 12:13 | XMS_ITS | Encounter Summary ---
Author Organization [facility] Address [address] [place] [address] Care Team Providers Care Principle Software Engineer Name Role Phone Davion Tavera MD Primary Care Provider [phone] Encounter Details Date Type Department Care Team (Latest Contact Info) Description 12/23/2024 Travel Social History Tobacco Use Types Packs/Day Years [...] documented as of this encounter Visit Diagnoses Not on filedocumented in this encounter Care Teams Principle Software Engineer Relationship Specialty Start Date End Date Davion Tavera MD [address] [place] [address] PCP - General Family Medicine 12/17/24 documented as of this encounter
--- OUTSIDE RECORDS SUMMARY | 2024-12-23 12:13 | XMS_ITS | Clinical Summary ---
Author Organization [facility] Address [id number] [address] [place] [address] Care Team Providers Care Make Up Arranger Name Role Phone Davion Tavera MD Primary Care Provider [phone] Allergies No known active allergies Medications omeprazole (PriLOSEC) 10 mg capsule Take 10 mg by mouth daily. Active Active Problems No known active problems Encounters Date Type Department Care Team Description 12/18/2024 12:23 PM EDT - 12/18/2024 11:59 PM EDT Hospital Encounter [facility] - Ultrasound [address] [place] [phone] Thyroid nodule Discharge Disposition: Home 12/18/2024 Travel from Last 3 Months Family History Medical History Relation Name Comments Lung cancer Mother Breast cancer Neg Hx Relation Name Status Comments Brother Alive Daughter 1 Alive Daughter 2 Alive Mother Social History Tobacco Use Types Packs/Day Years Used Date Smoking Tobacco: Former Cigarettes 1 15 1 - 2006 Smokeless Tobacco: Never Alcohol Use [...] PM EST Sexual Orientation Not on file Last Filed Vital Signs Vital Sign Reading Time Taken Comments Blood Pressure 124/72 04/14/2021 8:32 AM EST Pulse 82 04/06/2021 11:03 AM EST Temperature 36 C (96.8 F) 04/14/2021 8:32 AM EST Respiratory Rate 17 04/06/2021 11:03 AM EST Oxygen Saturation 95% 04/06/2021 11:03 AM EST Inhaled Oxygen Concentration - - Weight 90.7 kg (200 lb) 12/21/2022 3:33 PM EDT Height 149.9 cm (4' 11 ) 12/21/2022 3:33 PM EDT Body Mass Index 40.4 12/21/2022 3:33 PM EDT Plan of Treatment Health Maintenance Due Date Last Done Comments Depression Screening 1988 Tobacco Screening 1988 DTaP,Tdap and Td Vaccines (1 - Tdap) 12/14/1995 Adult BMI Screening 12/22/2023 12/21/2022 Influenza Vaccine 01/20/2025 02/27/2024, , 03/09/2022, Additional history exists Pap Smear Discontinued 04/29/2013 Medical Devices Not on file Procedures Procedure Name Priority Date/Time Associated Diagnosis Comments US THYROID Routine 12/18/2024 12:45 PM EDT Thyroid nodule from Last 3 Months Results * Ultrasound thyroid (12/18/2024 12:45 PM [...] 12/19/2024 3:29 PM us Theresa Dalal MD [facility] ORDERABLES Final Result from Last 3 Months Insurance [employer] Care Teams Make Up Arranger Relationship Specialty Start Date End Date Davion Tavera MD PCP - General Family Medicine 05/18/18
--- OUTSIDE RECORDS SUMMARY | 2024-12-23 12:13 | XMS_ITS | Clinical Summary ---
Author Organization [facility] Address [address] [place] [address] Care Team Providers Care Airframe Technical Officer Name Role Phone Davion Tavera MD Primary Care Provider [phone] Allergies No known active allergies Medications apixaban (Eliquis) 5 mg tablet Take 5 mg by mouth twice a day. Active pantoprazole (ProtoNix) 40 mg EC tablet Take 40 mg by mouth before breakfast. Active venlafaxine XR (Effexor-XR) 75 mg 24 hr capsule Take 75 mg by mouth in the morning. 06/13/2024 Active Active Problems Problem Noted Date Diagnosed Date Rectal bleeding in pediatric patient 04/30/2024 A-fib 04/25/2024 Diverticulosis 04/25/2024 GERD (gastroesophageal reflux disease) Hx of nummular eczema 04/25/2024 Ulcerative colitis 04/25/2024 Ulcerative proctitis 04/25/2024 Encounters Date Type Department Care Team Description 10/03/2024 10:40 AM EDT Office Visit [facility] [address] [place] [address] Monique Solorzano CNP Paroxysmal atrial fibrillation (CMS/HCC) (Primary Dx); S/P ablation of atrial fibrillation from Last 3 Months Family History Medical History Relation Name Comments Cancer Father Cancer Mother Relation Name Status Comments Brother Alive Father Mother Social History Tobacco Use Types Packs/Day Years Used Date Smoking Tobacco: Former Cigarettes S tarted: 2013 Passive Smoke Exposure: Past Smokeless Tobacco: Never Tobacco Cessation:Counseling Given: Not Answered Alcohol Use Standard Drinks/Week Comments Yes 0 (1 standard drink = 0.6 oz pur e alcohol) occasionally Comments Unknown Sex and Gender Information Value Date Recorded Sex Assigned at Female 12/20/2024 3:00 PM EDT Legal Sex Female 10:50 PM EDT Gender Identity Female 12/20/2024 3:00 PM EDT Sexual Orientation Heterosexual or Straight 05/2024 3:00 PM EDT Last Filed Vital Signs Vital Sign Reading Time Taken Comments Blood Pressure 133/78 10/03/2024 10:57 AM EDT Pulse 71 10/03/2024 10:57 AM EDT Temperature 36.2 C (97.2 F) 07/10/2024 3:20 PM EST Respiratory Rate 17 07/10/2024 2:35 PM EST Oxygen Saturation 97% 10/03/2024 10:57 AM EDT Inhaled Oxygen Concentration - - Weight 93.4 kg (206 lb) 10/03/2024 10:57 AM EDT Height 149.9 cm (4' 11 ) 10/03/2024 10:57 AM EDT Body Mass Index 41.61 10/03/2024 10:57 AM EDT Plan of Treatment Upcoming Encounters Date Type Department Care Team (Late st Contact Info) Description 12/24/2024 3:45 PM EDT Office Visit [facility] [address] [place] [address] Neftaly Casey MD [address] [place] [address] Health Maintenance Due Date Last Done Comments CT Colonography 1976 Colonoscopy 1976 Colorectal Cancer Screening 1976 FIT-DNA 1976 FIT 1976 FOBT 1976 Sigmoidoscopy 1976 Depression Screening 1988 Hepatitis B Vaccines (1 of 3 - 19+ 3-dose series) 12/14/1995 Pneumococcal Vaccine: Pediatrics (0 to 5 Years) and At-Risk Patients (6 to 64 Years) (1 of 2 - PCV) 12/14/1995 Adult Tetanus 1998 HPV/Cotest 2006 Cervical Cancer Screening 04/29/2016 Pap Smear 04/29/2016 04/29/2013 COVID-19 Vaccine (1 - 2024- season) 2024 Influenza Vaccine (#1) 2025 , 03/13/2023, 03/09/2022, Additional history exists Mammogram 12/24/2025 12/25/2023 Zoster Vaccines (1 of 2) 2026 HIB Vaccines Aged Out No longer eligi ble based on patient's age to complete this topic HPV Vaccines Aged Out No longer eligi ble based on patient's age to complete this topic IPV Vaccines Aged Out No longer eligi ble based on patient's age to complete this topic Meningococcal B Vaccine Aged Out No l onger eligible based on patient's age to complete this topic Meningococcal Vaccine Aged Out No candido swapna eligible based on patient's age to complete this topic Rotavirus Vaccines Aged Out No longer eligible based on patient's age to complete this topic Procedures Procedure Name Priority Date/Time Associated Diagnosis Comments ECG 12-LEAD Routine 10/07/2024 9:26 AM EDT Paroxysmal atrial fibrillation (CMS/HCC) from Last 3 Months Results * ECG 12 lead (10/07/2024 9:26 AM EDT) Monique Solorzano [facility] ECG ORDERABLES Final Result from Last 3 Months Insurance [employer] Advance Directives * Full Code (Latest Code Status on File) Date Activated Date Inactivated Comments 07/10/2024 11:53 AM 07/10/2024 5:40 PM Care Teams Airframe Technical Officer Relationship Specialty Start Date End Date Davion Tavera MD [address] [place], [place] [address] [place] [address] PCP - General 03/28/24
--- OUTSIDE RECORDS SUMMARY | 2024-12-23 12:13 | XMS_ITS | Encounter Summary ---
[facility] Address [id number] [address] [place] [address] Care Team Providers Care Cement Mason Maintenance Name Role Phone Davion Tavera MD Primary Care Provider [phone] Encounter Details Date Type Department Care Team (Latest Contact Info) Description 12/18/2024 Travel Social History Tobacco Use Types Packs/Day [...] on filedocumented in this encounter Care Teams Cement Mason Maintenance Relationship Specialty Start Date End Date Davion Tavera MD PCP - General Family Medicine 05/18/18 documented as of this encounter
--- OUTSIDE RECORDS SUMMARY | 2024-12-23 12:13 | XMS_ITS | Encounter Summary ---
Author Organization [facility] Address [address] [place] [address] Care Team Providers Care Medicine Assistant Name Role Phone Davion Tavera MD Primary Care Provider [phone] Encounter Details Date Type Department Care Team (Late st Contact Info) Description 12/23/2024 Bamboo flowsheet [facility] [address] [facility] [address] [place] [address] Theresa Dalal MD [address] [facility] [address] [place] [address] Social History Tobacco Use Types Packs/Day Years [...] on filedocumented in this encounter Care Teams Medicine Assistant Relationship Specialty Start Date End Date Davion Tavera MD [address] [place] [address] PCP - General Family Medicine 12/17/24 documented as of this encounter
--- OUTSIDE RECORDS SUMMARY | 2024-12-23 12:13 | XMS_ITS | Encounter Summary ---
Author Organization [facility] Address [address] [place] [address] Care Team Providers Care Dinkey Press Operator Name Role Phone Davion Tavera MD Primary Care Provider [phone] Encounter Details Date Type Department Care Team (Late st Contact Info) Description 12/19/2024 External Result Encounter [facility] [address] [place] [address] Theresa Dalal MD [address] [place] [address] Social History Tobacco Use Types Packs/Day Years [...] Comments US THYROID 12/19/2024 3:30 PM EDT documented in this encounter Results * US thyroid (12/19/2024 3:30 PM EDT) Anatomical Region Laterality Modality Head, Neck Ultrasound 12/19/2024 3:30 PM EDT Narrative 12/19/2024 3:29 PM EDT THIS EXAM WAS PERFORMED AT [facility] CLINICAL INFORMATION: Thyroid nodule. TECHNIQUE: Real time [...] - 12/19/2024 THIS EXAM WAS PERFORMED AT [facility] CLINICAL INFORMATION: Thyroid nodule. TECHNIQUE: Real time [...] No FNA or follow-up. Finalized by Wilber Shcmidt on 12/19/2024 3:29 PM us Theresa Dalal MD IMG US PROCEDURES Final Resul t documented in this encounter Visit Diagnoses Not on filedocumented in this encounter Care Teams Dinkey Press Operator Relationship Specialty Start Date End Date Davion Tavera MD [address] [place] [address] PCP - General Family Medicine 12/17/24 documented as of this encounter
--- OUTSIDE RECORDS SUMMARY | 2024-12-23 12:22 | XMS_ITS | CCD ---
Author Organization [facility] Care Team Providers Care Young Adult Librarian Name Role Phone DR XIMENA LEONE Attending [...] DR COOK Primary Care Unavailable ZIEBER, DR FLORENCIO Freed Consulting Unavailable CURRY, DR COOK Attending Unavailable HOY, DR COOK Consulting Unavailable HOY, DR COOK Primary Care Unavailable HOY, DR COOK Admitting Unavailable ZIEBER, DR FLORENCIO [employer] Unavailable CURRY, DR COOK Attending Unavailable HOY, DR COOK Consulting Unavailable HOY, DR COOK Admitting Unavailable HOY, DR COOK Primary Care Unavailable CARBONDALE, DR BROOKS Consulting Unavailable CANDICE, DR CARLINE Alberts Consulting Unavailmaria fernanda HARVEY, DR CARLINE Alberts Admitting Unavailmaria fernanda TAVERA, DR COOK Primary Care Unavailable CANDICE, DR CARLINE Alberts Attending Unavailmaria fernanda Tavera MD, Joey Renteria Primary Care Provider [phone] THERESA MORENO Attending Unavailable THERESA MORENO Attending Unavailable THERESA MORENO Attending Unavailable GOLDEN KAUR Attending Unavailable NEFTALY CASEY Attending Unavailable NEFTALY CASEY Attending Unavailable NEFTALY CASEY Admitting Unavailable NEFTALY CASEY Attending Unavailable NEFTALY CASEY Referring Unavailable NEFTALY CASEY Referring Unavailable GOLDEN KAUR Attending Unavailable JOEY TAVERA Referring Unavailable JOEY TAVERA Primary Care Unavailable THERESA MORENO Referring Unavailable JOEY TAVERA Primary Care Unavailable THERESA MORENO Referring Unavailable JOEY TAVERA Primary Care Unavailable Joey Tavera MD Primary Care Provider [phone] Medications Current Medications Medication Drug Class(es) Dates Sig (Normalized) Sig (Original) apixaban 5 mg oral tablet (12 sources) Factor Xa Inhibitor take 1 tablet by mouth in the morning apixaban (Eliquis) 5 MG tablet Take 5 mg by mouth in the morning and 5 mg before bedtime. Active famotidine 20 mg oral tablet (11 sources) Histamine-2 Receptor Antagonist Start: 04-30-2024 End: 12-23-2024 take 1 tablet by mouth at bedtime famotidine (Pepcid) 20 MG tablet Indications: LPRD (laryngopharyngeal reflux disease) Take 1 tablet (20 mg) by mouth at bedtime 90 tablet 04/30/2024 12/23/2024 Discontinued pantoprazole 40 mg delayed release oral tablet (12 sources) Proton Pump Inhibitor take 1 tablet by mouth before mealtime pantoprazole (Protonix) 40 MG EC tablet Take 40 mg by mouth in the morning. Take before meals. Active 24 hr venlafaxine 75 mg extended release oral capsule (2 sources) Serotonin and Norepinephrine Reuptake Inhibitor Start: 06-13-2024 take 1 capsule by mouth every twenty-four hours in the morning venlafaxine XR (Effexor XR) 75 MG 24 hr capsule Take 75 mg by mouth in the morning. 06/13/2024 Active Problems Active Problems Problem Classification Problem Date Documented Date Episodic/Chronic Cardiac dysrhythmias (14 sources) Atrial fibrillation; Translations: [Unspecified atrial fibrillation] Onset: 04-25-2024 04-25-2024 Chronic Diverticulosis and diverticulitis (12 sources) Diverticular disease; Translations: [Diverticulosis of intestine, part unspecified, without perforation or abscess without bleeding] Onset: 04-25-2024 04-25-2024 Chronic Esophageal disorders (17 sources) Gastro-esophageal reflux disease without esophagitis; Translations: [Gastroesophageal reflux disease] Onset: 04-08-2021 04-25-2024 Chronic Lymphadenitis (2 sources) Cervical lymphadenopathy; Translations: [Localized enlarged lymph nodes] 04-30-2024 Episodic Osteoarthritis (3 sources) Osteoarthritis of knee; Translations: [Osteoarthritis of knee, unspecified] Onset: 12-19-2024 12-19-2024 Chronic Other circulatory disease (2 sources) Personal history of other diseases of the circulatory system; Translations: [Personal history of other diseases of the circulatory system] Onset: 10-03-2024 Episodic Other female genital disorders (5 sources) [...] BMI 45.0-49.9 ADULT] Onset: 04-08-2021 Chronic Other upper respiratory disease (2 sources) Pain in throat; Translations: [Pain in throat] 04-30-2024 Episodic Regional enteritis and ulcerative colitis (20 sources) Ulcerative (chronic) proctitis without complications; Translations: [Ulcerative (chronic) proctitis] Onset: 04-25-2024 04-25-2024 Chronic Residual codes; unclassified (2 sources) Other specified postprocedural states; Translations: [Other specified postprocedural states] Onset: 10-03-2024 Episodic Spondylosis; intervertebral disc disorders; other back problems (1 source) Spondylosis without myelopathy or radiculopathy, thoracolumbar region; Translations: [SPONDYLS W/O MYELO-/RADICULOP TL] Onset: 05-26-2021 Chronic Thyroid disorders (11 sources) Nontoxic single thyroid nodule; Translations: [Non-toxic multinodular goiter] Onset: 09-20-2021 Chronic Unclassified (1 source) CONTACT W/AND (SUSP) EXPOS COVID-19; Translations: [CONTACT W/AND (SUSP) EXPOS COVID-19] Onset: 03-12-2021 Unclassified (2 sources) Other persistent atrial fibrillation; Translations: [Other persistent atrial fibrillation] Onset: 05-10-2024 Past or Other Problems Problem Classification Problem Date Documented Da te Episodic/Chronic Abdominal pain (6 sources) Right upper quadrant pain; Translations: [Pelvic and perineal pain] Onset: 03-12-2021 Episodic Benign neoplasm of uterus (1 source) Leiomyoma of uterus, unspecified; Translations: [LEIOMYOMA OF UTERUS UNSPECIFIED] Onset: 04-08-2021 Episodic Gastrointestinal hemorrhage (3 sources) Rectal hemorrhage; Translations: [Hemorrhage of anus and rectum] Onset: 04-30-2024 12-19-2024 Episodic Other aftercare (1 source) Other mcfp (current) drug therapy; Translations: [OTH SENIOR CARE CURRENT DRUG THERAPY] Onset: 04-08-2021 Episodic Other female genital disorders (1 source) Other noninflammatory disorders of ovary, fallopian tube and broad ligament; Translations: [OTH NONINFL D/O OVARY TUBE AND BRD LIG] Onset: 04-08-2021 Episodic Other female genital disorders (1 source) Hypertrophy of uterus; Translations: [HYPERTROPHY OF UTERUS] Onset: 03-15-2021 Episodic Other screening for suspected conditions (not mental disorders or infectious disease) (1 source) Encounter for screening mammogram for malignant neoplasm of breast; Translations: [Encounter for screening mammogram for malignant neoplasm of breast] Onset: 12-25-2023 Episodic Other skin disorders (12 sources) H/O: eczema; Translations: [Personal history of diseases of the skin and subcutaneous tissue] Onset: 04-25-2024 04-25-2024 Episodic Thyroid disorders (3 sources) Mass of thyroid gland; Translations: [Disorder of thyroid, unspecified] Onset: 06-20-2024 05-31-2024 Episodic Results Test Name Value Interpretation Reference Range Facility US THYROIDon 12-19-2024 US THYROID US THYROID CLINICAL INFORMATION: Thyroid nodule. TECHNIQUE: Real time [...] by Wilber Schmidt on 12/19/2024 3:29 PM Normal [facility] Office Visiton 10-03-2024 Follow-up visit [id number] Vernon Beltre 1975 Provider Department Center 10/03/2024 GOLDEN ANDERSON Family History Problem Relation Age of Onset Cancer Mother Cancer Father Family Status - Relation Status Age at Mother Father Brother Alive Level of Service:22845 [place] OFFICE/OUTPATIENT ESTABLISHED LOW MDM 20 MIN Reason for Visit and Comments: Atrial Fibrillation [80] Normal [facility] Follow-Upon 08-06-2024 Follow-Up [id number] Vernon Beltre 1975 Provider Department Center 08/06/2024 GOLDEN ANDERSON Family History Problem Relation Age of Onset Cancer Mother Cancer Father Family Status - Relation Status Age at Mother Father Level of Service:46570 [place] OFFICE/OUTPATIENT ESTABLISHED LOW MDM 20 MIN Reason for Visit and Comments: Atrial Fibrillation [80] Normal [facility] Telephoneon 07-19-2024 Telephone [id number] Vernon Beltre 1975 Provider Department Center 07/19/20241986-REJI [facility] Family History Problem Relation Age of Onset Cancer Mother Cancer Father Family Status - Relation Status Age at Mother Father Reason for Visit and Comments: week f/u post ablation [Other] Normal [facility] Anesthesiaon 07-10-2024 Anesthesia [id number] Vernon Beltre 1975 Provider Department Center 07/10/2024 [id number]-WVVTHSONNY JAMES [facility] Family History Problem Relation Age of Onset Cancer Mother Cancer Father Family Status - Relation Status Age at Mother Father Normal [facility] HPon 07-10-2024 HP ---- -------- Attestation signed by Neftaly Casey MD at 07/10/2024 8:23 AM By using the attestations below, the signing clinician agrees that I have read and verify that the documentation has been personally reviewed by me and ensure that the documentation accurately reflects the encounter. GC: I performed the alas portion(s) of the service and participated in the management and confirm the resident's documentation. Please note there may be an additional personal documentation from me. -------- H&P reviewed. The patient was examined and there are no changes to the H&P. Proceed with Afib ablation Normal [facility] NURSNOTEon 07-10-2024 NURSNOTE Discharge reviewed w ith pt. And daughter. No questions or concerns with discharge instructions prior to discharge. Normal [facility] POCT GLUCOSE METER UNSOLICIT ED RESULTSon 07-10-2024 Glucose [Mass/Vol] 83 mg/dL Normal 70-105 [facility] Comment on above: Order Comment: Waive d Testing in the ED is performed under the ED CLIA certificate #[id number]. Result Comment: elian [email or web address] Performed By: #### L [id number] ####[facility] [place] [address] PROTIME-INRon 07-10-2024 INR IN PPP BY COAGULATION ASSAY 0.99 Normal 0.90-1.10 [facility] Comment on above: Result Comment: ACCC P RECOMMENDED INR FOR WARFARIN THERAPY CONDITION INR PROPHYLAXIS OF VENOUS THROMBOSIS 2-3 (HIGH-RISK SURGERY) TREATMENT OF VENOUS THROMBOSIS 2-3 TREATMENT OF PULMONARY EMBOLISM 2-3 PREVENTION OF SYSTEMIC EMBOLISM: 2-3 ACUTE MYOCARDIAL INFARCTION TISSUE HEART VALVES VALVULAR HEART DISEASE ATRIAL FIBRILLATION RECURRENT SYSTEMIC EMBOLISM MECHANICAL HEART VALVE 2.5-3.5 FROM: ORAL ANTICOAGULANTS. MECHANISM OF ACTION, CLINICAL EFFECTIVENESS, AND OPTIMAL THERAPEUTIC RANGE. CHEST 1995;108:231S-246S. Performed By: #### L [id number] ####[facility] [place] [address] PROTHROMBIN TIME (PT) IN PPP BY COAGULATION ASSAY 13.1 Seconds Normal 12.3-14.8 [facility] Comment on above: Performed By: #### L [id number] ####[facility] [place] [address] Prep for Procedureon 025 Prep for Procedure [id number] Billie eBltre 1975 F Date Provider Department Center 07/10/20241986-[facility] Family History Problem Relation Age of Onset Cancer Mother Cancer Father Family Status - Relation Status Age at Mother Father Normal [facility] US THYROIDon 06-20-2024 US THYROID US THYROID CLINICAL INFORMATION: Thyroid nodules. TECHNIQUE: Real time [...] Florencio Masters MD on 06/20/2024 3:33 PM Normal [facility] HPon 06-18-2024 [facility] Electrophysiology Consult Note NM Cardiology - [facility] Reason for visit: Patient here for H&P prior to afib ablation, 06/19/24 Afib ablation scheduled for 07/10/2024. She denies chest pain, SOB, lightheadedness/syncope, and bleeding on Eliquis. HPI: Billie Beltre is a 48 y.o. [...] No Known Allergies Weight: 84.8kg Visit Vitals BP 128/79 (BP Location: Right arm, Patient Position: Sitting) Pulse 64 Ht 1.499 m (4' 11 ) Wt 84.8 kg (187 lb) SpO2 99% BMI 37.77 kg/m??? Smoking Status Former BSA 1.88 m??? Meds: Current Outpatient Medications on File Prior to Visit Medication Sig Dispense Refill apixaban (Eliquis) 5 mg tablet Take 5 mg by mouth twice a day. pantoprazole (ProtoNix) 40 mg EC tablet Take 40 mg by mouth before breakfast. venlafaxine XR (Effexor-XR) 75 mg 24 hr capsule Take 75 mg by mouth in the morning. [DISCONTINUED] famotidine (Pepcid) 20 mg tablet Take 20 mg by mouth in the morning. No current facility-administered medications on file prior to visit. Review of Systems Review of Systems Cardiovascular: Positive for palpitations ( sometimes ). Hematologic/Lymphatic: Bruises/bleeds easily. Physical Exam: Constitutional General Appearance: well-nourished, well-developed, [...] her episodes. After discussion, she wants to proceed. Discussed RF modificaton. Afib ablation would require placement of multiple catheters in the heart under moderate sedation which will include diagnostic catheters, ICE catheters and ablation catheters. The risk of the procedures can be described as minor and major minor complications being discomfort in the groin area, bl (more content not included)... Normal [facility] Office Visiton 06-18-2024 Follow-up visit [id number] Vernon Beltre 1975 Date Provider Department Center 06/18/2024 241-NEFTALY CASEY [facility] Family History Problem Relation Age of Onset Cancer Mother Cancer Father Family Status - Relation Status Age at Mother Father Level of Service:08181 [place] OFFICE/OUTPATIENT ESTABLISHED HIGH MDM 40 MIN Normal [facility] Prep for Procedureon 024 Prep for Procedure [id number] Billie Beltre 1975 Date Provider Department Center 05/10/2024 1987-[facility] Family History Problem Relation Age of Onset Cancer Mother Cancer Father Family Status - Relation Status Age at Mother Father Normal [facility] Office Visiton 04-30-2024 Follow-up visit [id number] Vernon Beltre 1975 F Date Provider Department Center 04/30/2024 EDWARDOCKO NEFTALY [facility] Family History Problem Relation Age of Onset Cancer Mother Cancer Father Family Status - Relation Status Age at Mother Father Level of Service:78535 [place] OFFICE/OUTPATIENT NEW MODERATE MDM 45 MINUTES Normal [facility] MAMM SCREENING BILATERAL W C signal processing engineer 12-26-2023 MAMM SCREENING BILATERAL W CAD MAMM [...] PM 1 c MAMM 1 YR Normal [facility] US THYROID FN ASP BXon 09-23 US THYROID FN ASP BX Begin Addendum #1 COLLECTED DATE/TIME: 09/20/2021, 09:07 EDT Final Diagnosis Report for [facility] [place] (A/B) RIGHT THYROID ANTERIOR/INFERIOR NODULES; FINE [...] 2. Pathology results are pending. Normal [facility] US SINGLE QUAD RT UPPERon US [...] account for patient's symptoms. Electronically authenticated by: FLORENCIO HEAD Date: 2021-07-08 10:06 Normal [facility] XR TSPINE 3 VIEWSon 05-21-20 21 [...] by: TODD MCCURDY Date: 2021-05-21 06:56 Normal [facility] BUNon 03-16-2021 Urea nitrogen [Mass/Vol] 11.0 mg/dL Normal 7.0-17.0 [facility] Comment on above: Performed By: #### C REANNA, BUN #### [facility] [address] [place] [address] Dr. Wei Mccoy CBC AUTO DIFFon 03-16-2021 BASO # 0.0 103/ul Normal 0.0-0.1 [facility] Comment on above: Performed By: #### C BC #### [facility] [address] [address] [address] Wei Mccoy Basophils/100 WBC (Bld) 0.3 % Normal 0.2-2.0 [facility] Comment on above: Performed By: #### C BC #### [facility] [address] [place] [address] Dr. Wei Mccoy EO # 0.0 103/ul Normal 0.0-0.7 [facility] Comment on above: Performed By: #### C BC #### [facility] [address] [place] [address] Dr. Wei Mccoy Eosinophils/100 WBC (Bld) 0.1 % Critically low 0.9-7.0 [facility] Comment on above: Performed By: #### C BC #### [facility] [address] [place] [address] Dr. Wei Mccoy Erythrocyte distribution width (RBC) [Ratio] 20.3 % Critically high 11.0-15.0 [facility] Comment on above: Performed By: #### C BC #### [facility] [address] [place] [address] Dr. Wei Mccoy Hematocrit (Bld) [Volume fraction] 30.9 % Critically low 36.0-48.0 [facility] Comment on above: Performed By: #### C BC #### [facility] [address] [place] [address] Dr. Wei Mccoy Hemoglobin (Bld) [Mass/Vol] 9.5 g/dL Critically low 12.0-16.0 [facility] Comment on above: Performed By: #### C BC #### [facility] [address] [address] [address] Wei Mccoy IG # 0.06 10e3/ul Critically high 0.00-0.03 [facility] Comment on above: Performed By: #### C BC #### [facility] [address] [place] [address] Dr. Wei Mccoy IG % 0.4 % Normal 0.0-0.5 [facility] Comment on above: Performed By: #### C BC #### [facility] [address] [place] [address] Dr. Wei Mccoy LYMPH # 2.8 103/ul Normal 1.2-3.8 [facility] Comment on above: Performed By: #### C BC #### [facility] [address] [place] [address] Dr. Wei Mccoy Lymphocytes/100 WBC (Bld) 17.5 % Critically low 20.5-60.0 [facility] Comment on above: Performed By: #### C BC #### [facility] [address] [place] [address] Dr. Wei Mccoy MANUAL DIFF REQ NO Normal [facility] Comment on above: Performed By: #### C BC #### [facility] [address] [place] [address] Dr. Wei Mccoy MCH (RBC) [Entitic mass] 24.5 pg Critically low 26.7-34.0 [facility] Comment on above: Performed By: #### C BC #### [facility] [address] [place] [address] Dr. Wei Mccoy MCHC (RBC) [Mass/Vol] 30.7 g/dL Normal 29.9-35.2 [facility] Comment on above: Performed By: #### C BC #### [facility] [address] [place] [address] Dr. Wei Mccoy MCV (RBC) [Entitic vol] 79.6 fL Critically low 81.0-99.0 [facility] Comment on above: Performed By: #### C BC #### [facility] [address] [address] [address] Wei Mccoy MONO # 0.9 103/ul Critically high 0.3-0.8 [facility] Comment on above: Performed By: #### C BC #### [facility] [address] [address] [address] Wei Mccoy Monocytes/100 WBC (Bld) 5.7 % Normal 1.7-12.0 [facility] Comment on above: Performed By: #### C BC #### [facility] [address] [place] [address] Dr. Wei Mccoy NEUT # 12.0 103/ul Critically high 1.4-6.5 [facility] Comment on above: Performed By: #### C BC #### [facility] [address] [place] [address] Dr. Wei Mccoy Neutrophils/100 WBC (Bld) 76.0 % Critically high 43.0-75.0 [facility] Comment on above: Performed By: #### C BC #### [facility] [address] [place] [address] Dr. eWi Mccoy Platelet mean volume (Bld) [Entitic vol] 9.5 fL Normal 9.5-13.5 [facility] Comment on above: Performed By: #### C BC #### [facility] [address] [place] [address] Dr. Wei Mccoy PLT 289 103/ul Normal 150-450 [facility] Comment on above: Performed By: #### C BC #### [facility] [address] [place] [address] Dr. Wei Mccoy RBC 3.88 106/ul Critically low 4.20-5.40 [facility] Comment on above: Performed By: #### C BC #### [facility] [address] [place] [address] Dr. Wei Mccoy WBC 15.8 103/ul Critically high 4.0-11.0 [facility] Comment on above: Performed By: #### C BC #### [facility] [address] [place] [address] Dr. Wei Mccoy CREATININEon 03-16-2021 Creatinine [Mass/Vol] 0.84 mg/dL Normal 0.52-1.04 [facility] Comment on above: Performed By: #### C REANNA, BUN #### [facility] [address] [address] [address] Wei Mccoy EGFR-AF BARBADIAN >60 Normal >=60 [facility] Comment on above: Performed By: #### C REANNA, BUN #### [facility] [address] [address] [address] Wei Mccoy EGFR-NON AF BARBADIAN >60 Normal >=60 [facility] Comment on above: Performed By: #### C REANNA, BUN #### [facility] [address] [address] [address] Wei Mccoy PREG HCG QUALon 03-15-2021 , QUAL Negative Normal NEGATIVE [facility] Comment on above: Performed By: #### P REG #### [facility] [address] [address] [address] Wei Mccoy CBC AUTO DIFFon 03-11-2021 BASO # 0.1 103/ul Normal 0.0-0.1 [facility] Comment on above: Performed By: #### C BC ####[facility] [address] [address]Dr. Wei Mccoy Basophils/100 WBC (Bld) 0.6 % Normal 0.2-2.0 [facility] Comment on above: Performed By: #### C BC ####[facility] [address] [address]DrMimi Mccoy EO # 0.1 103/ul Normal 0.0-0.7 [facility] Comment on above: Performed By: #### C BC ####[facility] [address] [address]DrMimi Mccoy Eosinophils/100 WBC (Bld) 0.9 % Normal 0.9-7.0 [facility] Comment on above: Performed By: #### C BC ####[facility] [address] [place], [place] [address]Dr. Wei Mccoy Erythrocyte distribution width (RBC) [Ratio] 18.7 % Critically high 11.0-15.0 [facility] Comment on above: Performed By: #### C BC ####[facility] [address] [place], [place] [address]Dr. Wei Mccoy Hematocrit (Bld) [Volume fraction] 35.5 % Critically low 36.0-48.0 [facility] Comment on above: Performed By: #### C BC ####[facility] [address] [place], [place] [address]Dr. Clairezhanna Mccoy Hemoglobin (Bld) [Mass/Vol] 10.9 g/dL Critically low 12.0-16.0 [facility] Comment on above: Performed By: #### C BC ####[facility] [address] [place], [place] [address]Dr. Wei Mccoy IG # 0.04 10e3/ul Critically high 0.00-0.03 [facility] Comment on above: Performed By: #### C BC ####[facility] [address] [place], [place] [address]Dr. Wei Mccoy IG % 0.4 % Normal 0.0-0.5 [facility] Comment on above: Performed By: #### C BC ####[facility] [address] [place], [place] [address]Dr. Wei Mccoy LYMPH # 1.9 103/ul Normal 1.2-3.8 [facility] Comment on above: Performed By: #### C BC ####[facility] [address] [place], [place] [address]Dr. Wei Mccoy Lymphocytes/100 WBC (Bld) 18.0 % Critically low 20.5-60.0 [facility] Comment on above: Performed By: #### C BC ####[facility] [address] [place], [place] [address]Dr. Wei Mccoy MANUAL DIFF REQ NO Normal [facility] Comment on above: Performed By: #### C BC ####[facility] [facility] Hptriw[address] [place], [place] [id number]. Wei Mccoy MCH (RBC) [Entitic mass] 24.4 pg Critically low 26.7-34.0 [facility] Comment on above: Performed By: #### C BC ####[facility] [address] [address]Dr. Wei Mccoy MCHC (RBC) [Mass/Vol] 30.7 g/dL Normal 29.9-35.2 [facility] Comment on above: Performed By: #### C BC ####[facility] Ib[address] [place], [place] [address]Dr. Wei Mccoy MCV (RBC) [Entitic vol] 79.6 fL Critically low 81.0-99.0 [facility] Comment on above: Performed By: #### C BC ####[facility] X[address] [place], [place] [address]Dr. Wei Darius MONO # 0.5 103/ul Normal 0.3-0.8 [facility] Comment on above: Performed By: #### C BC ####[facility] Giznnbaac[address] [place], [place] [address]Dr. Wei Darius Monocytes/100 WBC (Bld) 4.8 % Normal 1.7-12.0 [facility] Comment on above: Performed By: #### C BC ####[facility] Rtynwith[address] [place], [place] [address]Dr. Wei Mccoy NEUT # 7.9 103/ul Critically high 1.4-6.5 [facility] Comment on above: Performed By: #### C BC ####[facility] G[address] [place], [place] [address]Dr. Wei Darius Neutrophils/100 WBC (Bld) 75.3 % Critically high 43.0-75.0 [facility] Comment on above: Performed By: #### C BC ####[facility] [address] [place], [place] [address]Dr. Wei Mccoy Platelet mean volume (Bld) [Entitic vol] 8.8 fL Critically low 9.5-13.5 [facility] Comment on above: Performed By: #### C BC ####[facility] [address] [place], [place] [address]Pj. Wei Mccoy PLT 325 103/ul Normal 150-450 [facility] Comment on above: Performed By: #### C BC ####[facility] [address] [place], [place] [address]Yi. Wei Mccoy RBC 4.46 106/ul Normal 4.20-5.40 [facility] Comment on above: Performed By: #### C BC ####[facility] [address] [place], [place] [address]Sn. Wei Mccoy WBC 10.5 103/ul Normal 4.0-11.0 [facility] Comment on above: Performed By: #### C BC ####[facility] [address] [place], [place] [address]My. Wei Mccoy Covid-19 PCR (CVDTBH)on 02-20 SARS-CoV-2 (COVID-19) RNA JOSEFINA+probe Ql (Unsp spec) Not detected Normal NOT DETECTED [facility] Comment on above: Result Comment: This test is not yet approved or cleared by the [place] FDA. When there are no FDA-approved or cleared tests available, and other criteria are met, FDA can make tests available under an emergency access mechanism called an Emergency Use Authorization (EUA). The EUA for this test is supported by the [place] of Health and Human Service's (HHS's) declaration [...] with SARS-CoV-2. Performed By: #### C VDTBH ####[facility] [address] [place], [place] [address]Ee. Wei Mccoy PROF 14(COMP METB)on 021 Albumin [Mass/Vol] 3.1 g/dL Critically low 3.5-5.0 [facility] Comment on above: Performed By: #### C MP #### [facility] [address] [place] [address] Dr. Wei Mccoy Albumin/Globulin [Mass ratio] 0.7 {ratio} Normal [facility] Comment on above: Performed By: #### C MP #### [facility] [address] [place] [address] Dr. Wei Mccoy ALP [Catalytic activity/Vol] 118 U/L Normal 38-126 [facility] Comment on above: Performed By: #### C MP #### [facility] [address] [place] [address] Dr. Wei Mccoy ALT [Catalytic activity/Vol] 52 U/L Normal 9-52 [facility] Comment on above: Performed By: #### C MP #### [facility] [address] [place] [address] Dr. Wei Mccoy Anion gap [Moles/Vol] 9.5 mmol/L Normal [facility] Comment on above: Performed By: #### C MP #### [facility] [address] [place] [address] Dr. Wei Mccoy AST [Catalytic activity/Vol] 28 U/L Normal 14-36 [facility] Comment on above: Performed By: #### C MP #### [facility] [address] [place] [address] Dr. Wei Mccoy Bilirubin [Mass/Vol] 0.3 mg/dL Normal 0.2-1.3 [facility] Comment on above: Performed By: #### C MP #### [facility] [address] [place] [address] Dr. Wei Mccoy Calcium [Mass/Vol] 8.3 mg/dL Critically low 8.4-10.2 [facility] Comment on above: Performed By: #### C MP #### [facility] [address] [place] [address] Dr. Wei Mccoy Chloride [Moles/Vol] 103 mmol/L Normal 98-107 [facility] Comment on above: Performed By: #### C MP #### [facility] [address] [address] [address] eWi Mccoy CO2 [Moles/Vol] 27.3 mmol/L Normal 22.0-30.0 [facility] Comment on above: Performed By: #### C MP #### [facility] [address] [address] [address] Wei Mccoy Creatinine [Mass/Vol] 0.85 mg/dL Normal 0.52-1.04 [facility] Comment on above: Performed By: #### C MP #### [facility] [address] [place] [address] Dr. Wei Mccoy EGFR-AF BARBADIAN >60 Normal >=60 [facility] Comment on above: Performed By: #### C MP #### [facility] [address] [place] [address] Dr. Wei Mccoy EGFR-NON AF BARBADIAN >60 Normal >=60 [facility] Comment on above: Performed By: #### C MP #### [facility] [address] [address] [address] Wei Mccoy Globulin (S) [Mass/Vol] 4.4 g/dL Normal [facility] Comment on above: Performed By: #### C MP #### [facility] [address] [place] [address] Dr. Wei Mccoy Glucose [Mass/Vol] 131 mg/dL Critically high 74-106 [facility] Comment on above: Performed By: #### C MP #### [facility] [address] [place] [address] Dr. Wei Mccoy Potassium [Moles/Vol] 3.8 mmol/L Normal 3.4-5.0 [facility] Comment on above: Performed By: #### C MP #### [facility] [address] [place] [address] Dr. Wei Mccoy Protein [Mass/Vol] 7.5 g/dL Normal 6.1-8.2 [facility] Comment on above: Performed By: #### C MP #### [facility] [address] [address] [address] Wei Mccoy Sodium [Moles/Vol] 136 mmol/L Critically low 137-145 [facility] Comment on above: Performed By: #### C MP #### [facility] [address] [address] [address] Wei Mccoy Urea nitrogen [Mass/Vol] 11.0 mg/dL Normal 7.0-17.0 [facility] Comment on above: Performed By: #### C MP #### [facility] [address] [address] [address] Wei Mccoy Urea nitrogen/Creatini ne [Mass ratio] 12.9 mg/mg Normal [facility] Comment on above: Performed By: #### C MP #### [facility] [address] [address] [address] Wei Mccoy TSHon 03-11-2021 TSH 0.970 uIU/mL Normal 0.470-4.680 [facility] Comment on above: Performed By: #### T SH ####[facility] [address] [id number]. Wei Mccoy TSH RANGE SEE BELOW Normal [facility] Comment on above: Result Comment: <0.3 4 UIU/ml HYPERTHYROID 0.34-5.60 UIU/ml EUTHYROID >5.60 UIU/ml HYPOTHYROID Performed By: #### T SH ####[facility] [address] [id number]. Wei Mccoy TYPE AND SCREENon 03-11-2021 TYPE AND SCREEN Negative Normal [facility] Comment on above: Performed By: #### T NS #### [facility] [address] [address] [address] Wei Mccoy UA RANDOM W/MICROSCOPICon BACTERIA NONE SEEN Normal NONE SEEN [facility] Comment on above: Performed By: #### U AMIC #### [facility] [address] [address] [address] Wei Mccoy Bilirubin Ql (U) Negative Normal NEGATIVE [facility] Comment on above: Performed By: #### U AMIC #### [facility] [address] [address] [address] Wei Mccoy CAST NONE SEEN Normal NONE SEEN [facility] Comment on above: Performed By: #### U AMIC #### [facility] [address] [address] [address] Wei Mccoy Clarity (U) CLEAR Normal CLEAR [facility] Comment on above: Performed By: #### U AMIC #### [facility] [address] [address] [address] Wei Mccoy Color (U) LT. YELLOW Normal YELLOW [facility] Comment on above: Performed By: #### U AMIC #### [facility] [address] [address] [address] Wei Mccoy Crystals LM Nom (Urine sed) NONE SEEN Normal NONE SEEN [facility] Comment on above: Performed By: #### U AMIC #### [facility] [address] [address] [address] Wei Mccoy Epithelial cells LM Ql (Urine sed) FEW Abnormal NONE SEEN /RARE [facility] Comment on above: Performed By: #### U AMIC #### [facility] [address] [place] [address] Dr. Wei Mccoy Glucose Ql (U) Negative Normal NEGATIVE [facility] Comment on above: Performed By: #### U AMIC #### [facility] [address] [place] [address] Dr. Wei Mccoy Hemoglobin Ql (U) TRACE-INTACT Abnormal NEGATIVE [facility] Comment on above: Performed By: #### U AMIC #### [facility] [address] [address] [address] Wei Mccoy Ketones Ql (U) Negative Normal NEGATIVE The [facility] Comment on above: Performed By: #### U AMIC #### [facility] [address] [place] [address] Dr. Wei Mccoy LEUKOCYTES Negative Normal NEGATIVE [facility] Comment on above: Performed By: #### U AMIC #### [facility] [address] [address] [address] Wei Mccoy MUCOUS NONE SEEN Normal NONE SEEN [facility] Comment on above: Performed By: #### U AMIC #### [facility] [address] [address] [address] Wei Mccoy Nitrite Ql (U) Negative Normal NEGATIVE [facility] Comment on above: Performed By: #### U AMIC #### [facility] [address] [place] [address] Dr. Wei Mccoy pH (U) 5.5 [pH] Normal 5-9 [facility] Comment on above: Performed By: #### U AMIC #### [facility] [address] [place] [address] Dr. Wei Mccoy RBC 0-2 Normal 0-2 [facility] Comment on above: Performed By: #### U AMIC #### [facility] [address] [place] [address] Dr. Wei Mccoy SPEC GRAVITY 1.020 Normal 1.005-<=1.025 [facility] Comment on above: Performed By: #### U AMIC #### [facility] [address] [address] [address] Wei Mccoy UA PROTEIN Negative Normal NEGATIVE/ TRACE [facility] Comment on above: Performed By: #### U AMIC #### [facility] [address] [place] [address] Dr. Wei Mccoy Urobilinogen Qn (U) 0.2 {Andi'U}/dL Normal 0.2 - 1.0 [facility] Comment on above: Performed By: #### U AMIC #### [facility] [address] [place] [address] Dr. Wei Mccoy WBC 0-2 Abnormal NONE SEEN [facility] Comment on above: Performed By: #### U AMIC #### [facility] [address] [place] [address] Dr. Wei Mccoy Vital Signs Date Time Vital Sign Value Performing Clinician Faci lity 12-23-2024 10:28-0400 Body height 149.9 cm Theresa Moreno MD Work Phone: [facility] 12-23-2024 10:28-0400 Body mass index (BMI) [Ratio] 39.99 kg/m2 Theresa Moreno MD Work Phone: [facility] 12-23-2024 10:28-0400 Body weight 89.81 kg Theresa Moreno MD Work Phone: [facility] 12-23-2024 10:28-0400 Diastolic blood pressure 79 mm[Hg] Theresa Moreno MD Work Phone: [facility] 12-23-2024 10:28-0400 Systolic blood pressure 111 mm[Hg] Theresa Moreno MD Work Phone: [facility] 06-25-2024 14:30-0500 Body height 149.9 cm Theresa Moreno MD Work Phone: [facility] 06-25-2024 14:30-0500 Body mass index (BMI) [Ratio] 39.99 kg/m2 Theresa Moreno MD Work Phone: [facility] 06-25-2024 14:30-0500 Body weight 89.81 kg Theresa Moreno MD Work Phone: [facility] 06-25-2024 14:30-0500 Diastolic blood pressure 81 mm[Hg] Theresa Moreno MD Work Phone: [facility] 06-25-2024 14:30-0500 Heart rate 66 /min Theresa Moreno MD Work Phone: [facility] 06-25-2024 14:30-0500 Systolic blood pressure 115 mm[Hg] Theresa Moreno MD Work Phone: [facility] 05-31-2024 14:23-0500 Body height 149.9 cm Theresa Moreno MD Work Phone: [facility] 05-31-2024 14:23-0500 Body mass index (BMI) [Ratio] 39.99 kg/m2 Theresa Moreno MD Work Phone: [facility] 05-31-2024 14:23-0500 Body weight 89.81 kg Theresa Moreno MD Work Phone: [facility] 05-31-2024 14:23-0500 Diastolic blood pressure 78 mm[Hg] Theresa Moreno MD Work Phone: [facility] 05-31-2024 14:23-0500 Heart rate 56 /min Theresa Moreno MD Work Phone: [facility] 05-31-2024 14:23-0500 Systolic blood pressure 120 mm[Hg] Theresa Moreno MD Work Phone: [facility] 04-30-2024 11:27-0500 Body height 149.9 cm Theresa Moreno MD Work Phone: [facility] 04-30-2024 11:27-0500 Body mass index (BMI) [Ratio] 37.97 kg/m2 Theresa Moreno MD Work Phone: [facility] 04-30-2024 11:27-0500 Body weight 85.28 kg Theresa Moreno MD Work Phone: [facility] 04-30-2024 11:27-0500 Diastolic blood pressure 84 mm[Hg] Theresa Moreno MD Work Phone: [facility] 04-30-2024 11:27-0500 Systolic blood pressure 124 mm[Hg] Theresa Moreno MD Work Phone: [facility] Healthcare Encounters Encounter Date Encounter Type Care Provider Facility Start: 12-23-2024 End: 12-23-2024 Bamboo flowsheet [facility] Start: 12-23-2024 End: 12-23-2024 Bamboo flowsheet [facility] More[facility] Start: 12-23-2024 End: 12-23-2024 Office outpatient visit 15 minutes Theresa Moreno MD Work Phone: [facility] [place] [facility] Comment on above: Nontoxic multinodula r goiter (Primary Dx) Start: 12-18-2024 End: 12-18-2024 ambulatory [facility] Start: 10-03-2024 End: 10-03-2024 ambulatory [facility] Start: 08-06-2024 End: 08-06-2024 ambulatory [facility] Start: 07-10-2024 ambulatory [facility] Start: 07-10-2024 End: 07-10-2024 ambulatory [facility] Start: 06-25-2024 End: 06-25-2024 Office outpatient visit 15 minutes Theresa Moreno MD Work Phone: [facility] Comment on above: Thyroid nodule (CMS/ HCC) (Primary Dx) Start: 06-25-2024 End: 06-25-2024 ambulatory THERESA GOODWINMIRuddy Not Available Start: 06-25-2024 End: 06-25-2024 Bamboo flowsheet Theresa Moreno MD Work Phone: [facility] Start: 06-25-2024 End: 06-25-2024 Danielleo flowsflorence Moreno MD Work Phone: [facility] Start: 06-20-2024 End: 06-20-2024 ambulatory [facility] Start: 06-18-2024 End: 06-18-2024 ambulatory [facility] Start: 05-31-2024 End: 05-31-2024 Office outpatient visit 15 minutes Theresa Moreno MD Work Phone: [facility] [place] Comment on above: LPRD (laryngopharyng eal reflux disease) (Primary Dx); Thyroid mass (CMS/HCC) Start: 05-31-2024 End: 05-31-2024 ambulatory THERESA Becker TIMMIS Not Available Start: 05-31-2024 End: 05-31-2024 Bamboo flowsheet Theresa Moreno MD Work Phone: [facility] [place] Start: 05-31-2024 End: 05-31-2024 Danielleo avni Moreno MD Work Phone: [facility] [place] Start: 04-30-2024 End: 04-30-2024 Bamboo flowsflorence Moreno MD Work Phone: [facility] Start: 04-30-2024 End: 04-30-2024 Bamboo flowsheet Theresa [...] Start: 12-25-2023 End: 12-25-2023 ambulatory JOEY TAVERA [facility] Start: 09-20-2021 End: 09-20-[address] JOEY TAVERA Facility:[facility] Start: 07-08-2021 End: 07-09-[address] JOEY TAVERA Facility:[facility] Start: 05-20-2021 End: 05-21-[address] JOEY TAVERA Facility:[facility] Start: 03-15-2021 Encounter for other preprocedural examination DR XIMENA LEONE [facility] Start: 03-15-2021 End: 03-16-[address] XIMENA LEONE Facility:[facility] Start: 03-12-2021 Encounter for preprocedural laboratory examination DR CARLINE HARVEY [facility] Start: 03-11-2021 End: 03-12-[address] CARLINE HARVEY Facility:[facility] Start: 03-11-2021 End: 03-12-2021 Encounter for preprocedural laboratory examination DR XIMENA LEONE Facility:[facility] Start: 03-08-2021 End: 03-09-[address] XIMENA LEONE Facility:[facility] Start: 03-08-2021 End: 03-09-2021 Encounter for other preprocedural examination DR XIMENA LEONE Facility:[facility] Plan of Treatment Date Care Activity Detail Author Start: 06-25-2024 End: 06-25-2024 Patient encounter procedure 06/25/2024 2:30 PM EST Office Visit [facility] [address] [place] [address] Theresa Moreno MD [address] [place] [address] Arrived [facility] Comment on above: Arrived Start: 05-31-2024 End: 05-31-2024 Patient encounter procedure 05/31/2024 2:20 PM EST Office Visit [facility] [place] [address] [place] [phone] Theresa Moreno MD [address] [place] [address] Arrived [facility] [place] Comment on above: Arrived Start: 04-30-2024 End: 04-30-2024 Patient encounter procedure 04/30/2024 11:30 AM EST Office Visit [facility] [address] [place] [address] Theresa Moreno MD [address] [place] [address] Arrived [facility] Comment on above: Arrived Payers Date Payer Category Payer Managed Care HMO (unspecified) [id number] 1975 Unknown [id number] 2.16.84 [id number] 1975 Unknown [id number] 2.16.84 [id number] 1976 Unknown [id number] 2.16.84 [id number] 1976 Unknown [id number] 2.16.84 [id number] 1976 Unknown [id number] 2.16.84 [id number] 1976 Unknown [id number] 2.16.84 [id number] 1976 Unknown [id number] 2.16.84 [id number] 1976 Unknown [id number] [id number] 1976 Unknown [id number] 1976 Unknown [id number] 1976 Unknown [id number] [id number] 1976 Unknown [id number] 1976 Unknown [id number] 1959 Unknown [id number] Social History Date Type Detail Facility Start: 04-25-2024 End: 04-30-2024 Tobacco smoking status MDIS Ex-smoker [facility] Healthcare End: 04-13-2013 History of tobacco use Current smoker [facility] End: 04-13-2013 History of tobacco use Cigarette Smoker [facility] Start: 04-25-2024 End: 04-30-2024 Tobacco use and exposure Smokeless tobacco non-user [facility] Start: 04-25-2024 Alcoholic beverage intake Curr ent drinker of alcohol (finding) [facility] Start: 1975 Sex assigned at Not on file [facility] Start: 04-30-2024 End: 12-23-2024 Gender identity Not on file [facility] Start: 04-30-2024 End: 12-23-2024 Cigarettes smoked current (pack per day) - Reported 1 [facility] Start: 04-30-2024 End: 12-23-2024 Alcoholic beverage intake Ex-drinker (finding) [facility] Clinical Notes 04-30-2024 to 12-23-2024 Theresa Moreno MD - 12/23/2024 10:20 AM Niko Moreno MD - 06/25/2024 2:30 PM Ninfa Moreno MD - 05/31/2024 2:20 PM Ninfa Moreno MD - 04/30/2024 11:30 AM EST Note Date & Type Note Facility 12-23-2024 History of Present illness Narrative Subjective Patient ID: Billie Beltre is a 49 y.o. female who presents for Thyroid Nodule (6 month US [facility] 06/20/24) US shows dominant nodue [id number] compared to 35mm 6 mo ago. Nodule [...] by mouth at bedtime 90 tablet 0 No current facility-administered medications on file prior [...] prn if stable documented in this encounter [facility] 10-03-2024 Note Cardiovascular Medic ine [facility] SUBJECTIVE Chief Complaint Patient presents with Atrial Fibrillation Billie Beltre is a 48 y.o. female here for follow-up. HPI PMHx: atrial fib s/p ablation 07/10/24 10/03/2024 She has been feeling well since last seen. No further issues with elevated heart rates. Denies c/o CP, dyspnea, orthopnea, PND, LE edema, dizziness/LH, palpitations, syncope. 08/06/2024 Patient here for follow up afib ablation performed on 07/10/[address] Casey. Says her HR has been higher than she's used to - in the 80's-90's. Sometimes goes to 120's with exertion. Denies chest pain, SOB, lightheadedness/syncope, and bleeding on Eliquis. She has felt some intermittent palpitations, occurring daily. Typically after she exerts herself such as doing laundry or climbing stairs. She will look at her smart watch which tells her her HR could be in the 120s. This comes down quickly when she rests. Denies c/o CP, dyspnea, orthopnea, PND, LE edema, dizziness/LH, syncope. Last HPI per Dr. Casye: Billie Beltre is a 48 y.o. year [...] Monitor: revealed episode of likely atrial fibrillation Patient Active Problem List Diagnosis A-fib (CMS/HCC) Diverticulosis GERD (gastroesophageal reflux disease) Hx of nummular eczema Rectal bleeding in pediatric patient Ulcerative colitis (CMS/HCC) Ulcerative proctitis (CMS/HCC) Past Medical History: Diagnosis Date Abnormal ECG Arrhythmia Atrial fibrillation (CMS/HCC) Diverticulosis GERD (gastroesophageal reflux disease) Migraine Thyroid nodule Ulcerative colitis (CMS/HCC) Family History Problem Relation Name Age of Onset Cancer Mother Cancer Father Social History Tobacco Use Smoking status: Former Types: Cigarettes Start date: 2012 Passive exposure: Past Smokeless tobacco: Never Vaping Use Vaping status: Never Used Substance Use Topics Alcohol use: Yes Comment: occasionally Drug use: Never No Known Allergies OBJECTIVE Visit Vitals BP 133/78 (BP Location: Right arm, Patient Position: Sitting) Pulse 71 Ht 1.499 m (4' 11 ) Wt 93.4 kg (206 lb) SpO2 97% BMI 41.61 kg/m??? Smoking Status Former BSA 1.97 m??? Medications: Current Outpatient Medications: apixaban (Eliquis) 5 mg tablet, Take 5 mg by mouth twice a day., Disp: , Rfl: pantoprazole (ProtoNix) 40 mg EC tablet, Take 40 mg by mouth before breakfast., Disp: , Rfl: venlafaxine XR (Effexor-XR) 75 mg 24 hr capsule, Take 75 mg by mouth in the morning., Disp: , Rfl: Physical Exam Vitals reviewed. Constitutional: Appearance: Normal appearance. HENT: Head: Normocephalic and atraumatic. Right Ear: External ear normal. Left Ear: External ear normal. Eyes: Extraocular Movements: Extraocular movements intact. Conjunctiva/sclera: Conjunctivae normal. Pupils: Pupils are equal, round, and reactive to light. Neck: Vascular: No carotid bruit. Cardiovascular: Rate and Rhythm: Normal rate and regular rhythm. Pulses: Normal pulses. Heart sounds: Normal heart sounds. Pulmonary: Effort: Pulmonary effort is normal. Breath sounds: Normal breath sounds. Abdominal: General: Bowel sounds are normal. Palpations: Abdomen is soft. Musculoskeletal: Cervical back: Neck supple. Right lower leg: No edema. Left lower leg: No edema. Skin: General: Skin is warm and dry. Neurological: General: No focal deficit present. Mental Status: She is alert and oriented to person, place, and time. Psychiatric: Mood and Affect: Mood normal. Behavior: Behavior normal. Thought Content: Thought content normal. Judgment: Judgment normal. Labs: Admission on 07/10/2024, Discharged on 07/10/2024 Component Date Value Ref Range Status Ventricular Rate 07/10/2024 59 BPM Final Atrial Rate 07/10/2024 59 BPM Final TX Interval 07/10/2024 124 ms Final QRS DURATION 07/10/2024 80 ms Final QT Interval 07/10/2024 422 ms Final QTC CALCULATION(BAZETT) 07/10/2024 417 ms Final P [place] 07/10/2024 39 degrees Final R-[place] 07/10/2024 5 degrees Final T Wave [place] 07/10/2024 8 degrees Final Protime 07/10/2024 13.1 12.3 - 14.8 Seconds Final INR 07/10/2024 0.99 0.90 - 1.10 Final Glucose POC 07/10/2024 83 70 (more content not included)... [facility] 10-03-2024 Note Patient is here toda y for a 2 month follow up. Patient states she has been feeling really good. Patient denies any cardiac complains. Review of Systems Constitutional: Negative. [facility] 08-06-2024 Note Patient here for fol low up afib ablation performed on 07/10/[address] Casey. Says her HR has been higher than she's used to - in the 80's-90's. Sometimes goes to 120's with exertion. Denies chest pain, SOB, lightheadedness/syncope, and bleeding on Eliquis. Review of Systems Cardiovascular: Positive for palpitations ( racing ). All other systems reviewed and are negative. [facility] 08-06-2024 Note Cardiovascular Medic ine [facility] SUBJECTIVE Chief Complaint Patient presents with Atrial Fibrillation Billie Beltre is a 48 y.o. female here for follow-up. HPI PMHx: atrial fib s/p ablation 07/10/24 08/06/2024 Patient here for follow up afib ablation performed on 07/10/[address] Casey. Says her HR has been higher than she's used to - in the 80's-90's. Sometimes goes to 120's with exertion. Denies chest pain, SOB, lightheadedness/syncope, and bleeding on Eliquis. She has felt some intermittent palpitations, occurring daily. Typically after she exerts herself such as doing laundry or climbing stairs. She will look at her smart watch which tells her her HR could be in the 120s. This comes down quickly when she rests. Denies c/o CP, dyspnea, orthopnea, PND, LE edema, dizziness/LH, syncope. Last HPI per Dr. Casey: Billie Beltre is a 48 y.o. year [...] Monitor: revealed episode of likely atrial fibrillation Patient Active Problem List Diagnosis A-fib (CMS/HCC) Diverticulosis GERD (gastroesophageal reflux disease) Hx of nummular eczema Rectal bleeding in pediatric patient Ulcerative colitis (CMS/HCC) Ulcerative proctitis (CMS/HCC) Past Medical History: Diagnosis Date Abnormal ECG Arrhythmia Atrial fibrillation (CMS/HCC) Diverticulosis GERD (gastroesophageal reflux disease) Migraine Thyroid nodule Ulcerative colitis (CMS/HCC) Family History Problem Relation Name Age of Onset Cancer Mother Cancer Father Social History Tobacco Use Smoking status: Former Types: Cigarettes Start date: 2012 Passive exposure: Past Smokeless tobacco: Never Vaping Use Vaping status: Never Used Substance Use Topics Alcohol use: Yes Comment: occasionally Drug use: Never No Known Allergies ROS Cardiovascular: Positive for palpitations ( racing ). All other systems reviewed and are negative. OBJECTIVE Visit Vitals BP 124/86 (BP Location: Right arm, Patient Position: Sitting) Pulse 81 Ht 1.499 m (4' 11 ) Wt 88 kg (194 lb) SpO2 99% BMI 39.18 kg/m??? Smoking Status Former BSA 1.91 m??? Medications: Current Outpatient Medications: apixaban (Eliquis) 5 mg tablet, Take 5 mg by mouth twice a day., Disp: , Rfl: pantoprazole (ProtoNix) 40 mg EC tablet, Take 40 mg by mouth before breakfast., Disp: , Rfl: venlafaxine XR (Effexor-XR) 75 mg 24 hr capsule, Take 75 mg by mouth in the morning., Disp: , Rfl: Physical Exam Vitals reviewed. Constitutional: Appearance: Normal appearance. HENT: Head: Normocephalic and atraumatic. Right Ear: External ear normal. Left Ear: External ear normal. Eyes: Extraocular Movements: Extraocular movements intact. Conjunctiva/sclera: Conjunctivae normal. Pupils: Pupils are equal, round, and reactive to light. Neck: Vascular: No carotid bruit. Cardiovascular: Rate and Rhythm: Normal rate and regular rhythm. Pulses: Normal pulses. Heart sounds: Normal heart sounds. Pulmonary: Effort: Pulmonary effort is normal. Breath sounds: Normal breath sounds. Abdominal: General: Bowel sounds are normal. Palpations: Abdomen is soft. Musculoskeletal: Cervical back: Neck supple. Right lower leg: No edema. Left lower leg: No edema. Skin: General: Skin is warm and dry. Neurological: General: No focal deficit present. Mental Status: She is alert and oriented to person, place, and time. Psychiatric: Mood and Affect: Mood normal. Behavior: Behavior normal. Thought Content: Thought content normal. Judgment: Judgment normal. Labs: Admission on 07/10/2024, Discharged on 07/10/2024 Component Date Value Ref Range Status Ventricular Rate 07/10/2024 59 BPM Final Atrial Rate 07/10/2024 59 BPM Final TX Interval 07/10/2024 124 ms Final QRS DURATION 07/10/2024 80 ms Final QT Interval 07/10/2024 422 ms Final QTC CALCULATION(BAZETT) 07/10/2024 417 ms Final P [place] 07/10/2024 39 degrees Final R-[place] 07/10/2024 5 degrees Final T Wave [place] 07/10/2024 8 degrees Final Protime 07/10/2024 13.1 12.3 - 14.8 Seconds Final INR 07/10/2024 0.99 0.90 - 1.10 Final Glucose POC 07/10/2024 83 70 - 105 mg/dL Final Ventricular Rate 07/10/2024 73 BPM Final Atrial Rate 07/10/2024 7 (more content not included)... [facility] 07-10-2024 Note ATRIAL FIBRILLATION ABLATION PROCEDURE NOTE DATE OF PROCEDURE: 07/10/2024 PERFORMING PHYSICIAN: Dr. Neftaly Casey CONSENT: Patient NAME OF THE PROCEDURE: Pulmonary Vein Isolation and Comprehensive EP study. INDICATIONS FOR PROCEDURE: 1. Paroxysmal atrial fibrillation. FLUROSCOPY: 2.5min/ 14mGy. EBL: 25cc SPECIMEN REMOVED: None PROCEDURES PERFORMED: 1. Sonosite guided venous access as noted below and images stored in PACS. 2. Comprehensive EP study and catheter ablation for persistent atrial fibrillation through the pulmonary vein isolation technique. This includes right atrial recording and pacing, His bundle recording and right ventricular recording and pacing. 3. Intracardiac EP 3D mapping. 4. Intracardiac echocardiogram 5. Left atrial and coronary sinus recording and pacing to assess ablation results. 6. Left heart pressure measurements and LV pacing and recording. 7. Induction of arrhythmia and testing of ablation results using intravenous adenosine infusion. 8. Fluroscopy. 9. Arterial line placement. PROCEDURE NOTE: On the day of presentation, she was noted to be in sinus rhythm following which the ARISTIDES was deferred. Risks, benefits and alternatives of the procedure were discussed with the patient and family who agreed to proceed. Please refer to my consult note for details of the discussion and of indications. The patient was prepped and draped following which four venous access was procured on right side as noted below. Ultrasound was used to determine the course and patency of the femoral veins on both sides and they were noted to be patent and the image stored in PACS. After infiltration with 1% lidocaine, 4 venous sheaths were placed in the right as noted below and a femoral arterial line was placed by me. LFA: 5F fo hemodynamic monitoring. RFV: 8Fx3, [employer] ThermoCool SF Bi-Directional over SL1/ Vizigo, SL1: Octoray,, CS Catheter (EZ Steer). 9F: ICE catheter, Following venous access, heparin bolus was given followed by continuous intravenous drip to target ACT around 350. An intracardiac ultrasound catheter was inserted into the right atrium to examine the right atrial anatomy, atrial septum, pulmonary vein anatomy and to monitor for pericardial effusion and guide transseptal access. The LA and RA was only moderately dilated. At baseline, there was no pericardial effusion and no BILLY clot but noted a very prominent Coumadin ridge. Esophagus was mapped using the CARTOSOUND 3D mapping software and noted to be towards the middle. Transeptal access was procured with ICE guidance using a SL-1 sheath and Lewis needle. LV pacing was performed and no left sided accessory pathway was seen. Following this, Octoray,catheter was advanced and the multipolar mapping performed of the LA creating a geometry as well as bipolar voltage assessment was made. The LA was noted to be healthy. After FAM geometry was performed, a 2nd transseptal was performed with an SL1 sheath using a Lewis needle. Following transseptal, the SL1 sheath was removed and Vizigo sheath was advanced over which the ablation catheter ST-SF thermocol ablation catheter was advanced. Ablation was then performed. A cooling tube was advanced to the stomach and position confirmed with fluoroscopy and cooling initiated to 4C. Ablation was performed using 40 miramontes for 10-12s in the anterior LA and 5-8seconds in the posterior wall and roof area. After completion of the left sided WACA, no signals were noted in the LSPV or LIPV and entrance and exit block was noted. After this, I proceeded to perform ablation of the right-sided vein. Following right WACA, the veins were isolated. I ensured that on the anterior aspect of right WACA and in daisha area, phrenic capture was ruled out before any ablation was performed. After this, perivenous pacing was performed around each individual vein, ensuring there was isolation. Adenosine was given at 15 mg dose and AV block and hypotension was noted. No reconnection was seen. I proceeded to perform CTI ablation. Using ICE, the His and IVC junctions were marked with 3D CARTO mapping software. ICE revealed a large subeustachian pouch. Vizigo sheath was ikm to the right side. Ablation was performed on the CTI line starting at the tricuspid valve aspect. 40W was utilized and I extended the ablation from the TV to the IVC aspect. Following the completion of the line, the patient did not have bidirectional block. I mapped to identify the area of leak and it was noted to be close to the pouch and close to the tricuspid valve. Repeat ablation was done and bidirectional block was noted with medial to lateral pacing with a timing of 135ms and from lateral to medial was 132ms. Differential pacing confirmed bidirectional block. EP study was then performed. Burst pacing from CS pacing down to 250ms was performed from proximal CS and no tachycardia could be induced. At this po (more content not included)... [facility] 07-10-2024 Note Patient: Billie quintanilla Procedure Summary Date: 07/10/24 Room / Location: [facility] EP / [facility] (Cath) Anesthesia Start: 824 Anesthesia Stop: 1209 Procedure: Ablation a-fib paroxysmal Diagnosis: Paroxysmal atrial fibrillation (CMS/HCC) (Paroxysmal atrial fibrillation (CMS/HCC) [I48.0]) Providers: Neftaly Casey MD Responsible Provider: Sonny James MD Anesthesia Type: general ASA Status: 2 Anesthesia Type: No value filed. Vitals Value Taken Time BP 108/68 07/10/24 1200 Temp 36.5 07/10/24 1212 Pulse 71 07/10/24 1200 Resp 12 07/10/24 1200 SpO2 98 % 07/10/24 1200 Anesthesia Post Evaluation Patient location during evaluation: PACU Patient participation: complete - patient participated Level of consciousness: awake and alert Pain management: adequate Airway patency: patent Cardiovascular status: acceptable and blood pressure returned to baseline Respiratory status: acceptable Hydration status: acceptable Patient is hemodynamically stable and is able to be discharged from PACU per anesthesia protocol. No notable events documented. [facility] 07-10-2024 Note Airway Date/Time: 07/10/2024 8:38 AM Urgency: elective General Information and Staff Patient location during procedure: OR Anesthesiologist: Sonny James MD Performed: other anesthesia staff Indications and Patient Condition Indications for airway management: anesthesia Spontaneous Ventilation: absent Sedation level: deep Preoxygenated: yes Mask difficulty assessment: 1 - vent by mask Final Airway Details Final airway type: endotracheal airway Successful airway: ETT Cuffed: yes Successful intubation technique: direct laryngoscopy Endotracheal tube insertion site: oral Blade: Forte Blade size: #3 ETT size (mm): 7.0 Cormack-Lehane Classification: grade I - full view of glottis Placement verified by: chest auscultation and capnometry Measured from: lips ETT to lips (cm): 22 Number of attempts at approach: 1 Number of other approaches attempted: 0 Additional Comments Airway mgmt done by VICKY Morales [facility] 07-09-2024 Note Patient: Billie quintanilla Procedure Information Date/Time: 07/10/24 0830 Procedure: Ablation a-fib paroxysmal Location: [facility] / [facility] (Cath) Providers: Neftaly Casey MD Relevant Problems Cardio (+) A-fib (CMS/HCC) GI (+) GERD (gastroesophageal reflux disease) Clinical information reviewed: Tobacco Allergies Meds Med Hx Surg Hx Fam Hx Soc Hx Past Surgical History: Procedure Laterality Date CHOLECYSTECTOMY HYSTERECTOMY TYMPANOSTOMY TUBE PLACEMENT Past Medical History: Diagnosis Date Abnormal ECG Arrhythmia Atrial fibrillation (CMS/HCC) Diverticulosis GERD (gastroesophageal reflux disease) Migraine Thyroid nodule Ulcerative colitis (CMS/HCC) Medication Documentation Review Audit Reviewed by Yamileth Gaona RN (Registered Nurse) on 07/10/24 at 0727 Medication Order Taking? Sig Documenting Provider Last Dose Status apixaban (Eliquis) 5 mg tablet [id number] Yes Take 5 mg by mouth twice a day. Historical Provider, 07/09/2024 0800 Active pantoprazole (ProtoNix) 40 mg EC tablet [id number] Yes Take 40 mg by mouth before breakfast. Historical Provider, 07/10/2024 Active venlafaxine XR (Effexor-XR) 75 mg 24 hr capsule [id number] Yes Take 75 mg by mouth in the morning. Historical Provider, 07/10/2024 Active No Known Allergies No results found for: GLUCOSE , CALCIUM , NA , K , CO2 , CL , BUN , CREATININE No results found for: EGFR No results found for: WBC , HGB , HCT , MCV , PLT No results found for: PTT No results found for: INR , PROTIME No results found for: ABORH No results found for: ALT , AST , GGT , ALKPHOS , BILITOT No results found for: HGBA1C No echocardiogram results found for the past 12 months Physical Exam Airway Mallampati: I TM distance: >3 FB Neck ROM: full Cardiovascular - normal exam Rhythm: regular Rate: normal Dental - normal exam Pulmonary - normal exam Breath sounds clear to auscultation Abdominal Anesthesia Plan ASA 2 general The patient is not a current smoker. intravenous induction Trial extubation is planned. Anesthetic plan and risks discussed with patient. Use of blood products discussed with patient who consented to blood products. Plan discussed with attending and CAA. Additional Equipment Requests Tube Size: 7.0 Vascular Equipment: infusion pump and arterial line kit [facility] 06-25-2024 History of Present illness Narrative Subjective Patient ID: Billie Beltre is a 48 y.o. female who presents for Thyroid Nodule (Thyroid US at [facility] 06/20) Thyroid US reviewed. Dominant left inf lobe nodule 35mm TR3 compared to 32mm TR4 in 2021. Other smaller nodules stable to somewhat smaller. Family History Problem Relation Name Age of Onset Cancer Mother Radha lung Migraines Mother Radha Cancer Father lung Active Ambulatory Problems Diagnosis Date Noted A-fib (CMS/HCC) 04/25/2024 Ulcerative proctitis (CMS/HCC) 04/25/2024 Ulcerative colitis [...] to visit. Objective Last Recorded Vitals Vitals: 06/25/24 1430 BP: 115/81 Pulse: 66 ENT Physical Exam Constitutional Appearance: patient appears well-developed, well-nourished and well-groomed, Communication/Voice: communication appropriate for developmental age; vocal quality normal; Assessment/Plan Diagnoses and all orders for this visit: Thyroid nodule (CMS/HCC) Stable dominant left inf thyroid nodule. Needs to be followed more closely. I will recheck in 6 mo documented in this encounter [facility] 06-18-2024 Note NM Electrophysiology Consult Note NM Cardiology [facility] Reason for visit: Patient here for H&P prior to afib ablation, 06/19/24 Afib ablation scheduled for 07/10/2024. She denies chest pain, SOB, lightheadedness/syncope, and bleeding on Eliquis. HPI: Billie Beltre is a 48 y.o. [...] No Known Allergies Weight: 84.8kg Visit Vitals BP 128/79 (BP Location: Right arm, Patient Position: Sitting) Pulse 64 Ht 1.499 m (4' 11 ) Wt 84.8 kg (187 lb) SpO2 99% BMI 37.77 kg/m??? Smoking Status Former BSA 1.88 m??? Meds: Current Outpatient Medications on File Prior to Visit Medication Sig Dispense Refill apixaban (Eliquis) 5 mg tablet Take 5 mg by mouth twice a day. pantoprazole (ProtoNix) 40 mg EC tablet Take 40 mg by mouth before breakfast. venlafaxine XR (Effexor-XR) 75 mg 24 hr capsule Take 75 mg by mouth in the morning. [DISCONTINUED] famotidine (Pepcid) 20 mg tablet Take 20 mg by mouth in the morning. No current facility-administered medications on file prior to visit. Review of Systems Review of Systems Cardiovascular: Positive for palpitations ( sometimes ). Hematologic/Lymphatic: Bruises/bleeds easily. Physical Exam: Constitutional General Appearance: well-nourished, well-developed, [...] her episodes. After discussion, she wants to proceed. Discussed RF modificaton. Afib ablation would require placement of multiple catheters in the heart under moderate sedation which will include diagnostic catheters, ICE catheters and ablation catheters. The risk of the procedures can be described as minor and major minor complications being discomfort in the groin area, bl (more content not included)... [facility] 05-31-2024 History of Present illness Narrative Subjective Patient ID: Billie Beltre is a 48 y.o. female who presents for Thyroid Nodule (Follow up [facility] 05/09/24) CT neck reviewed and is unremarkable with the exception of a left substernal thyroid mass. Note made of a 08/2021 thyroid US. Throat discomfort persists Family History Problem Relation Name Age of Onset Cancer Mother Radha lung Migraines Mother Radha Cancer Father lung Active Ambulatory Problems Diagnosis Date Noted A-fib ([facility]/HCC) 04/25/2024 Ulcerative proctitis ([facility]/HCC) 04/25/2024 Ulcerative colitis ([facility]) 04/25/2024 Hx of nummular eczema 04/25/2024 GERD (gastroesophageal reflux disease) 04/25/2024 Diverticulosis 04/25/2024 Resolved Ambulatory Problems Diagnosis Date Noted No Resolved Ambulatory Problems Past Medical History: Diagnosis Date Headache Migraine ([facility]) Past Surgical History: Procedure Laterality [...] visit: LPRD (laryngopharyngeal reflux disease) Thyroid mass ([facility]) Continue LPRD regimen Pt has a fairly large left inf thyroid mass evident on CT and noted on 08/2021 US fro [facility]. There is no pathologic LAD. Repeat US at [facility] documented in this encounter [facility] 04-30-2024 Note NM Electrophysiology Consult Note NM Cardiology - [facility] Reason for visit: afib HPI: [...] RF modificaton. Neftaly Casey MD Cardiac Electrophysiology [facility] 04-30-2024 History of Present illness Narrative Images from the original note [...] Active Ambulatory Problems Diagnosis Date Noted A-fib ([facility]) 04/25/2024 Ulcerative proctitis ([facility]) 04/25/2024 Ulcerative colitis ([facility]) 04/25/2024 Hx of nummular eczema 04/25/2024 GERD (gastroesophageal reflux disease) 04/25/2024 Diverticulosis 04/25/2024 Resolved Ambulatory Problems Diagnosis Date Noted No Resolved Ambulatory Problems Past Medical History: Diagnosis Date Headache Migraine ([facility]) Past Surgical History: Procedure Laterality [...] 1/10 strep: Yes documented in this encounter [facility] Healthcare Evaluation note Diagnosis LPRD (laryngopharyngeal reflux disease)- Primary Acute laryngitis, without mention of obstruction LAD (lymphadenopathy), cervical Throat pain Nontoxic multinodular goiter (CMS/HCC) Nontoxic multinodular goiter [facility] Diagnosis LPRD (laryngopharyngeal reflux disease)- Primary Acute laryngitis, without mention of obstruction Thyroid mass (CMS/HCC) Unspecified disorder of thyroid [facility] Diagnosis Thyroid nodule (CMS/HCC)- Primary Nontoxic uninodular goiter [facility] Diagnosis Nontoxic multinodular goiter- Primary Nontoxic multinodular [...] and content) DATE CREATED AUTHOR 12/30/2021 [facility] DATE CREATED AUTHOR AUTHOR'S ORGANIZ ATION 06/27/2024 [facility] EPIC DATE CREATED AUTHOR AUTHOR'S ORGANIZ ATION 10/10/2024 [facility] DATE CREATED AUTHOR AUTHOR'S ORGANIZ ATION 12/20/2024 [facility] Care Teams (unrecognized sec tion and content) Young Adult Librarian Relationship Specialty Start Date End Date Joey Tavera MD [address] [place] [address] PCP - General Family Medicine 04/30/24 Young Adult Librarian Relationship Specialty Start Date End Date Joey Tavera MD [address] [place] [address] PCP - General Family Medicine 04/30/24 Young Adult Librarian Relationship Specialty Start Date End Date Joey Tavera MD [address] [place] [address] PCP - General Family Medicine 04/30/24 Young Adult Librarian Relationship Specialty Start Date End Date Joey Tavera MD [address] [place] [address] PCP - General Family Medicine 04/30/24 Young Adult Librarian Relationship Specialty Start Date End Date Joey Tavera MD [address] [place] [address] PCP - General Family Medicine 04/30/24 Young Adult Librarian Relationship Specialty Start Date End Date Joey Tavera MD [address] [place] [address] PCP - General Family Medicine 12/17/24 Young Adult Librarian Relationship Specialty Start Date End Date Joey Tavera MD [address] [place] [address] PCP - General Family Medicine 12/17/24 Reason for Visit (unrecogniz ed section and content) Reason Comments Throat Pain Reason Comments Thyroid Nodule Follow up [facility] Reason Comments Thyroid Nodule Thyroid US at [facility] 06/20 Reason Comments Thyroid Nodule 6 month US [facility] 06/20/24 FOR RECORDS PERTAINING TO PATIENTS WHO ARE [...] BE BASED ON THE PRIMARY CLINICAL RECORDS. [employer] provides no warranty or guarantee of the accuracy or completeness of information in this document.
--- NOTE | 2024-12-23 12:23 | XR_ITS ---
The [address] [address] Patient Name: ADRIA LE MRN: [id number] date: 1975 Sex: F Assigned Patient Location: LAB Current Patient Location: LAB Accession/Order Number: [id number] Exam Date: 12/23/2024 13:02 Report Date: 12/23/2024 13:03 At the request of: JOEY ZAPIEN MD Procedure: XR lumbar spine min 4V LUMBAR SPINE - 4 views CLINICAL HISTORY: lumbar radiculitis COMPARISON: Lumbar spine 05/20/2021 FINDINGS: Vertebral body disc space heights appear maintained. Mild endplate degenerative change. SI joints appear unremarkable. There appears to be a bilateral pars defects at L5 causing no significant spondylolisthesis. XR/XR lumbar spine min 4V IMPRESSION: NO ACUTE BONY PROCESS. Impression dictated by: Yoseph Lakhani Jr., D.O. 12/23/2024 1:03 PM Dictation Location: [place] [address] Electronically authenticated by: [id number] Y Date: 12/23/2024 13:03
[2024-12-23 12:56] LABS: Hematocrit 42.2 % (36.0-48.0); Hemoglobin 13.8 g/dL (12.0-16.0); Immature Granulocytes Abs Auto 0.01 10^3/uL (0.00-0.03); Immature Granulocytes Pct Auto 0.1 % (0.0-0.5); Lymphocytes Absolute Auto 2.2 10^3/uL (1.2-3.8); Mean Corpuscular HGB Conc 32.7 g/dL (29.9-35.2); Mean Corpuscular Hemoglobin 31.2 pg (26.7-34.0); Mean Corpuscular Volume 95.3 fL (81.0-99.0); Platelet Count 271 10^3/uL (150-450); Red Blood Count 4.43 10^6/uL (4.20-5.40); White Blood Count 8.9 10^3/uL (4.0-11.0)
[2024-12-23 13:08] LABS: Alanine Aminotransferase 38 U/L (14-59); Albumin Globulin Ratio 0.7; Albumin Level 3.2 g/dL (3.4-5.0); Alkaline Phosphatase 130 U/L (46-116); Anion Gap 10.6; Aspartate Amino Transferase 19 U/L (15-37); Blood Urea Nitrogen 15.0 mg/dL (7.0-18.0); Calcium 8.7 mg/dL (8.5-10.1); Carbon Dioxide 28.8 mmol/L (21.0-32.0); Chloride 105 mmol/L (98-107); Cholesterol 198 mg/dL (<=200); Estimated GFR (African America >60 (>=60 mL/min/1.73m^2); Estimated GFR (Non-African Ame >60 (>=60 mL/min/1.73m^2); Free T3 2.75 pg/mL (2.18-3.98); Globulin 4.4 g/dL; Glucose 89 mg/dL (74-106); HDL Cholesterol 41 mg/dL (40-60); Potassium 4.4 mmol/L (3.5-5.1); Sodium 140 mmol/L (136-145); Thyroid Stimulating Hormone 1.104 uIU/mL (0.358-3.740); Total Protein 7.6 g/dL (6.4-8.2); Triglycerides 140 mg/dL (<=150); VLDL CHOLESTEROL 28.0 mg/dL
[2024-12-23 14:18] LABS: Iron 29.0 ug/dL (50.0-170.0)
== END 2024-12-23 12:10 | disposition home or self-care (01) ==
LOC: LAB 12:11
PROVIDERS: PCP Family Medicine; Visit Provider Family Medicine
DX: Z00.00 Encounter for general adult medical examination without abnormal findings (principal); M54.16 Radiculopathy, lumbar region
CPT/HCPCS: 36415; 72110; 80053; 80061; 83036; 83525; 83540; 84436; 84443; 84481; 85025

== ENCOUNTER 2025-01-03 14:08 | Outpatient (OUT) | payer OTHER, SELFPAY ==
--- NOTE | 2025-01-03 14:11 | MR_ITS ---
The [address] [address] Patient Name: ADRIA LE MRN: [id number] date: 1975 Sex: F Assigned Patient Location: MRI Current Patient Location: MRI Accession/Order Number: [id number] Exam Date: 01/03/2025 15:51 Report Date: 01/03/2025 15:57 At the request of: JOEY ZAPIEN MD Procedure: MR lumbar spine wo con MRI lumbar spine performed without contrast INDICATION: Lumbar radiculitis, right lumbar radiculopathy, right leg weakness COMPARISON: 12/23/2024 FINDINGS: Lumbar vertebral heights, alignment unremarkable. Slightly diminished bone marrow signal can be seen with red marrow conversion, correlate with CBC, this can be seen normally menstruating patient. There is anterolisthesis of L5 on S1 4 mm. Pars interarticularis defects at L5 noted. Mild intervertebral space narrowing L5-S1 and L1-L2. Conus medullaris terminates normally at the inferior plate of L1. Incidental vertebral body hemangioma at S2 T12-L1: Unremarkable. L1-L2: Circumferential bulge with left central protrusion. Minor central canal narrowing. Facet arthropathy. Minimal foraminal narrowing. L2-3: Mild facet arthropathy. Minimal foraminal narrowing. No significant disc disease or disc protrusion. L3-4: Disc desiccation with facet arthropathy. Canal neural foramina patent. L4-5: Disc desiccation with moderate facet arthropathy. Trace right-sided facet joint effusion. Canal and neural foramina patent. L5-S1: Pars interarticularis defects and 4 mm anterolisthesis and uncovering the posterior disc. Circumferential bulge with moderate neural foraminal narrowing. Canal is patent. MR/MR lumbar spine wo con IMPRESSION: Overall mild degenerative throughout the lumbar spine appearing most pronounced L5-S1 with pars defects and 4 mm anterolisthesis and moderate foraminal narrowing at this level.. Impression dictated by: Paramjit Mackenzie M.D. 01/03/2025 3:57 PM Dictation Location: [place] [address] Electronically authenticated by: [id number] Y Date: 01/03/2025 15:57
== END 2025-01-03 14:09 | disposition home or self-care (01) ==
LOC: MRI 14:08
PROVIDERS: PCP Family Medicine; Visit Provider Family Medicine
DX: Z00.00 Encounter for general adult medical examination without abnormal findings (principal); M54.16 Radiculopathy, lumbar region; M51.369 Other intervertebral disc degeneration, lumbar region without mention of lumbar back pain or lower extremity pain
CPT/HCPCS: 72148